=== PATIENT | female | born 1960 | race Caucasian/White ===

== ENCOUNTER 2022-05-15 06:59 | Outpatient (CLI) | payer OTHER, SELFPAY ==
--- NOTE | ~2022-05-15 | MM_ITS ---
EXAMINATION: MM screening linnea BI w manuel HISTORY: Screening mammogram TECHNIQUE: Craniocaudal and mediolateral oblique 3-D tomosynthesis images were obtained and synthetic 2-D images were generated. CAD analysis was submitted and interpreted. COMPARISON: No prior mammogram is available for comparison at this institution. BREAST PARENCHYMAL COMPOSITION: There are scattered areas of fibroglandular density. FINDINGS: RIGHT BREAST: No suspicious mass, calcification, or architectural distortion are identified to sugges t malignancy. LEFT BREAST: There is focal asymmetry in the upper outer quadrant of the left breast. IMPRESSION: 1. Focal asymmetry of the left breast which may represent the patient's baseline however no compariso n is currently available. 2. Comparison with prior mammograms is necessary. BI-RADS Category 0: Incomplete: Needs comparison with prior mammograms. Reviewed, dictated and finalized at location A. TUTOR IMPRESSION: 1. Focal asymmetry of the left breast which may represent the patient's baselin e however no comparison is currently available. 2. Comparison with prior mammograms is necessary. BI-RADS Category 0: Incomplete: Needs comparison with prior mammograms.
[2022-05-15 08:10] LABS: Alanine Aminotransferase 26 U/L (14-59); Aspartate Amino Transferase 15 U/L (15-37); Cholesterol 180 mg/dL (0-200); HDL Direct 45 mg/dL (40-60); LDL Cholesterol Calculated 111 mg/dL (<130); Triglycerides 121 mg/dL (0-150)
== END 2022-05-15 07:00 | disposition home or self-care (01) ==
LOC: CHSIMG 07:04
PROVIDERS: PCP Physician Assistant
DX: Z12.31 Encounter for screening mammogram for malignant neoplasm of breast (principal); Z79.899 Other long term (current) drug therapy; E78.2 Mixed hyperlipidemia
CPT/HCPCS: 36415; 77063; 77067; 80061; 84450; 84460

== ENCOUNTER 2022-12-05 12:56 | Outpatient (CLI) | payer OTHER, SELFPAY ==
[2022-12-05 13:15] LABS: Basophils Absolute Auto 0.03 K/mm3 (0.00-0.10); Basophils Percent Auto 0.5 % (0.0-1.0); Eosinophils Absolute Auto 0.09 K/mm3 (0.02-0.50); Eosinophils Percent Auto 1.6 % (1.0-6.0); Hematocrit 38.9 % (35.0-49.0); Hemoglobin 12.8 g/dL (12.0-15.0); Immature Granulocyte Absolute 0.02 K/mm3 (0.00-0.00); Immature Granulocyte Percent A 0.4 % (0.0-0.0); Lymphocytes Absolute Auto 2.19 K/mm3 (1.10-4.50); Lymphocytes Percent Auto 38.7 % (18.0-42.0); Mean Corpuscular HGB Conc 32.9 g/dL (32.0-36.0); Mean Corpuscular Hemoglobin 31.5 pg (27.0-31.0); Mean Corpuscular Volume 95.8 fL (78.0-102.0); Mean Platelet Volume 10.5 fl (9.2-11.8); Monocytes Absolute Auto 0.45 K/mm3 (0.10-0.90); Neutrophils Absolute Auto 2.9 K/mm3 (1.7-7.2); Neutrophils Percent Auto 50.8 % (50.0-70.0); Platelet Count Result 176 K/mm3 (150-420); Red Blood Count 4.06 M/mm3 (4.20-5.40); Red Cell Distribution Width 11.8 % (11.6-14.4); White Blood Count 5.7 K/mm3 (4.8-10.8)
[2022-12-05 13:28] LABS: Prothrombin Time 11.4 Seconds (9.50-12.10)
[2022-12-05 13:52] LABS: Anion Gap 2 mmol/L (8-16); Blood Urea Nitrogen 18 mg/dL (7-18); Calcium 9.7 mg/dL (8.5-10.1); Carbon Dioxide 35 mmol/L (21-32); Chloride 102 mmol/L (98-108); Estimated Glomerular Filt Rate > 60; Glucose 106 mg/dL (70-99); Magnesium 1.7 mg/dL (1.8-2.4); Osmolality Calculated 289 mOsm/kg (285-295); Potassium 3.8 mmol/L (3.5-5.1); Sodium 139 mmol/L (136-145)
== END 2022-12-05 12:57 | disposition home or self-care (01) ==
LOC: CHSLAB 13:00
PROVIDERS: PCP Physician Assistant; Visit Provider Specialist
DX: R07.89 Other chest pain (principal); R93.89 Abnormal findings on diagnostic imaging of other specified body structures; I10 Essential (primary) hypertension; E78.2 Mixed hyperlipidemia
CPT/HCPCS: 36415; 80048; 83735; 85025; 85610

== ENCOUNTER 2022-12-19 19:03 | Emergency (ER) | payer OTHER, SELFPAY ==
[2022-12-19 19:07] VITALS: BP 148/81; PULSE 83; RESP 14; TEMP 36.6; O2SAT 98
[2022-12-19 22:12] LABS: Basophils Percent Auto 0.4 % (0.2-1.2); Eosinophils Absolute Auto 0.1 K/mm3 (0-0.3); Eosinophils Percent Auto 2.1 % (0-4.4); Hematocrit 43.6 % (37.0-47.0); Hemoglobin 14.4 g/dL (12.0-15.0); Immature Granulocyte Absolute 0.02 K/mm3 (0.00-0.031); Immature Granulocyte Percent A 0.4 % (0-0.5); Lymphocytes Absolute Auto 2.46 K/mm3 (0.9-3.2); Mean Corpuscular Hemoglobin 31.3 pg (26-34); Mean Corpuscular Volume 94.8 fl (80-100); Mean Platelet Volume 10.6 fl (7.4-10.4); Monocytes Absolute Auto 0.4 K/mm3 (0.1-0.6); Monocytes Percent Auto 7.3 % (2.6-8.5); Neutrophils Absolute Auto 2.6 K/mm3 (1.3-6.7); Neutrophils Percent Auto 45.8 % (45.5-73.1); Platelet Count Result 196 k/mm3 (150-375); White Blood Count 5.6 K/mm3 (4.5-10.0)
--- NOTE | 2022-12-19 22:15 | ED.SKABFB ---
HPI - Skin/Abscess/Foreign Bdy General Chief complaint: Skin/Abscess/Foreign Body Stated complaint: bruising after cardiac cath Time Seen by Provider: 12/19/22 20:41 Source: patient Mode of arrival: ambulatory Limitations: no limitations History of Present Illness HPI narrative: This is a 62-year-old female that presents to the emergency department for right arm pain. Ongoing since yesterday. Reports a recent cardiac catheterization for which they accessed her in the right wrist. No recent injuries. Reports some bruising to the area. Denies fever, chest pain, shortness of breath, erythema, or edema. Related Data Allergies Allergy/AdvReac Type Severity Reaction Status Date / Time No Known Allergies Allergy Verified 12/19/22 19:04 Review of Systems Review of Systems: CONSTITUTIONAL: Denies fever CARDIOVASCULAR: Denies chest pain, or edema. RESPIRATORY: Denies dyspnea. NEUROLOGIC: Denies numbness All systems reviewed & are unremarkable except as noted in HPI and below PMFSH Past Medical History Medical History (Updated 12/19/22 @ 22:48 by Ellie Agustin PA-C) History of diabetes mellitus History of hypertension Social History Social History (Updated 12/19/22 @ 22:17 by Ellie Agustin PA-C) Substance use: never Exam Narrative: GENERAL: Well-appearing, well-nourished, and in no acute distress. HEAD: Normocephalic, atraumatic. EYES: EOMI. CHEST: No respiratory distress HEART: Regular rate EXTREMITIES: Normal range of motion. No edema or erythema. Mild bruising noted at the right wrist palmar aspect. Normal radial pulse. Normal sensation SKIN: Warm, dry, no rash. NEURO: No focal deficits. Alert and oriented x3. PSYCH: Normal mood and affect Course Course Emergency Course: Patient was updated on workup and agrees with plan of care Vital Signs Vital signs: Vital Signs Temperature 97.9 F 12/19/22 19:07 Pulse Rate 83 12/19/22 19:07 Respiratory Rate 14 12/19/22 19:07 Blood Pressure 148/81 H 12/19/22 19:07 Pulse Oximetry 98 12/19/22 19:07 Oxygen Delivery Room Air 12/19/22 19:07 Temperature 97.9 F 12/19/22 19:07 Pulse Rate 83 12/19/22 19:07 Respiratory Rate 14 12/19/22 19:07 Blood Pressure 148/81 H 12/19/22 19:07 Pulse Oximetry 98 12/19/22 19:07 Oxygen Delivery Room Air 12/19/22 19:07 MDM - Skin/Abscess/Foreign Bdy MDM Narrative Medical decision making narrative: Patient presents to the ER for right arm pain after recent cardiac catheterization. She is afebrile. She is neurovascularly intact. No erythema or edema of the arm noted. She denies any chest pain or shortness of breath. She has a small hematoma with some mild surrounding bruising. CBC metabolic panel without concerning findings. D-dimer is not elevated. Patient instructed to use warm compresses and anti-inflammatories. She is to follow up with her changer fixer. She was given warnings to return to the ER Differential Diagnosis Differential diagnosis: Likely cellulitis and other (hematoma, superficial thrombophlebitis, DVT) Lab Data Attestation: I reviewed the patient's lab results. 12/19/22 22:07 12/19/22 22:07 Labs: Lab Results 12/19/22 Range/Units 22:07 WBC 5.6 (4.5-10.0) K/mm3 RBC 4.60 (4.2-5.4) M/mm3 Hgb 14.4 (12.0-15.0) g/dL Hct 43.6 (37.0-47.0) % MCV 94.8 (80-100) fl MCH 31.3 (26-34) pg MCHC 33.0 (32-36) g/dl RDW 12.0 (11.5-14.5) % Plt Count 196 (150-375) k/mm3 MPV 10.6 H (7.4-10.4) fl Immature Gran % (Auto) 0.4 (0-0.5) % Neut % (Auto) 45.8 (45.5-73.1) % Lymph % (Auto) 44.0 (18.3-44.2) % [place] % (Auto) 7.3 (2.6-8.5) % Eos % (Auto) 2.1 (0-4.4) % Baso % (Auto) 0.4 (0.2-1.2) % Lymph # (Auto) 2.46 (0.9-3.2) K/mm3 [place] # (Auto) 0.4 (0.1-0.6) K/mm3 Eos # (Auto) 0.1 (0-0.3) K/mm3 Baso # (Auto) 0.0 (0.0-0.1) K/mm3 Abs Immat Gran (auto) 0.02 (0.00-0.031) K/mm3 Absolute Ne
[2022-12-19 22:23] LABS: Anion Gap 5 mmol/L (8-16); Blood Urea Nitrogen 17 mg/dL (7-17); Calcium 10.3 mg/dL (8.4-10.2); Carbon Dioxide 33 mmol/L (22-30); Chloride 98 mmol/L (98-107); Estimated CRCL calculation 71 ml/min; Estimated Glomerular Filt Rate > 60; Glucose 104 mg/dL (65-110); Potassium 3.4 mmol/L (3.4-5.0); Prothrombin Time 13.2 Seconds (11.1-14.7); Sodium 136 mmol/L (137-145)
[2022-12-19 22:24] LABS: Partial Thromboplastin Time 28.4 SECONDS (22.3-36.8)
[2022-12-19 22:30] LABS: D Dimer 0.41 ug/mL (<0.48)
[2022-12-19 23:21] VITALS: BP 144/87; PULSE 71; RESP 15; O2SAT 99
== END 2022-12-19 23:00 | disposition home or self-care (01) ==
PROVIDERS: Emergency Provider Physician Assistant; PCP Physician Assistant
DX: L76.32 Postprocedural hematoma of skin and subcutaneous tissue following other procedure (principal); E11.9 Type 2 diabetes mellitus without complications; I10 Essential (primary) hypertension; Y84.0 Cardiac catheterization as the cause of abnormal reaction of the patient, or of later complication, without mention of misadventure at the time of the procedure
CPT/HCPCS: 36415; 80048; 85025; 85380; 85610; 85730; 99283

== ENCOUNTER 2023-08-05 07:58 | Outpatient (CLI) | payer OTHER, SELFPAY ==
--- NOTE | ~2023-08-05 | MM_ITS ---
EXAMINATION: MM screening linnea BI w manuel HISTORY: Screening mammogram TECHNIQUE: Craniocaudal and mediolateral oblique 3-D tomosynthesis images were obtained and synthetic 2-D images were generated. CAD analysis was submitted and interpreted. COMPARISON: 05/15/2022, 01/02/2019 bilateral screening mammogram examinations BREAST PARENCHYMAL COMPOSITION: There are scattered areas of fibroglandular density. FINDINGS: Stable asymmetric increased density in the upper outer left breast since 01/02/2019. There is no evidence of suspicious mass, calcification, or architectural distortion to suggest malignancy in either breast. There has been no suspicious interval change. IMPRESSION: 1. Stable benign fibroglandular asymmetry. No mammographic evidence of malignancy. 2. Recommend routine screening mammography in one year. BI-RADS Category 2: Benign finding(s). Reviewed, dictated and finalized at location A. IMPRESSION: 1. Stable benign fibroglandular asymmetry. No mammographic evidence of malignan cy. 2. Recommend routine screening mammography in one year. BI-RADS Category 2: Benign finding(s).
== END 2023-08-05 07:59 | disposition home or self-care (01) ==
LOC: CHSIMG 08:00
PROVIDERS: PCP Physician Assistant; Visit Provider Physician Assistant
DX: Z12.31 Encounter for screening mammogram for malignant neoplasm of breast (principal)
CPT/HCPCS: 77063; 77067

== ENCOUNTER 2024-01-20 11:17 | Outpatient (CLI) | payer OTHER, SELFPAY ==
--- NOTE | ~2024-01-20 | XR_ITS ---
Cervical Spine: AP, lateral, open-mouth views Clinical History: Pain Findings: The normal lordotic curve is maintained. There is mild grade 1 anterolisthesis of C4 over C 5. There are mild to moderate degenerative disc changes at C4-C5 and C5 and C6. There is mild degener ative disc changes C6-C7. There are mild facet joint degenerative changes. Pre-vertebral soft tissues are unremarkable. Impression: Mild degenerative spondylosis, as above. Minimal grade 1 anterolisthesis of C4 over C5. Reviewed, dictated and finalized at location M. Impression: Mild degenerative spondylosis, as above. Minimal grade 1 anterolisthesis of C4 over C5.
--- NOTE | ~2024-01-20 | XR_ITS ---
Thoracic spine: Clinical Indication: Back pain AP and lateral views were performed. No fracture is seen. There is normal alignment of the vertebrae. There are mild degenerative disc ch anges in the thoracic spine. Paravertebral soft tissues appear normal. Impression: Mild degenerative disc changes. Reviewed, dictated and finalized at location . Impression: Mild degenerative disc changes.
--- NOTE | ~2024-01-20 | XR_ITS ---
Lumbosacral Spine: AP and lateral views Clinical History: Pain Findings: The normal lordotic curve is maintained. Bilateral L5 pars interarticularis defects are pre sent, with 15 mm anterolisthesis of L5 over S1. There is facet arthropathy at L5-S1 and moderate dege nerative disc narrowing at this level. The sacroiliac joints are normally outlined. Impression: Bilateral L5 pars interarticularis defects, with 15 mm anterolisthesis of L5 over S1. Reviewed, dictated and finalized at location M. Impression: Bilateral L5 pars interarticularis defects, with 15 mm anterolisthesis of L5 ov er S1.
== END 2024-01-20 11:18 | disposition home or self-care (01) ==
LOC: CHSIMG 11:19
PROVIDERS: PCP Physician Assistant; Visit Provider Physician Assistant
DX: M54.2 Cervicalgia (principal); M54.50 Low back pain, unspecified; M54.9 Dorsalgia, unspecified; M53.86 Other specified dorsopathies, lumbar region; M43.17 Spondylolisthesis, lumbosacral region; M43.12 Spondylolisthesis, cervical region
CPT/HCPCS: 72040; 72072; 72100

== ENCOUNTER 2024-02-10 12:30 | Outpatient (CLI) | payer OTHER, SELFPAY ==
--- NOTE | ~2024-02-10 | DEXA_ITS ---
Bone Density Report Name: ZAYRA PLASCENCIA Age: 63 Sex: Female Ethnicity: White Date of : 1960 Indication: postmenopausal; screening for osteoporosis; Referring Provider: ARIE, XIOMARA Study: Bone densitometry was performed. Exam Date: February 10, 2024 Accession number: [id number] Bone Density: Region BMD T-score Z-score Classification AP Spine(L1-L4) 0.861 -1.7 0.0 Osteopenia Femoral Neck (Left) 0.665 -1.7 -0.2 Osteopenia Total Hip (Left) 0.913 -0.2 1.0 Normal Femoral Neck (Right) 0.643 -1.9 -0.4 Osteopenia Total Hip (Right) 0.896 -0.4 0.8 Normal Femoral Neck Mean 0.654 -1.8 -0.3 Osteopenia Total Hip Mean 0.905 -0.3 0.9 Normal World Health Organization criteria for BMD impression classify patients as: Normal (T-score at or above -1.0), Osteopenia (T-score between -1.0 and -2.5), or Osteoporosis (T-score at or below -2.5). 10-year Fracture Risk: FRAX not reported because: Treated for osteoporosis Clinical Information Provided by Patient: Is being treated for osteoporosis Has used the following medications: Boniva (i.e. ibandronate), Vitamin D, multi Patient maximum height was 63 Menopause Age: 41 No regular weight bearing exercise Does not regularly consume dairy products Drinks caffeinated beverages Onset of menses at age 10 Number of children 1 Impression: The patient has low bone mass, based on the Right Femoral Neck T-score. Discussion: It is important to ask patients whether they are taking their medications and to encourage continued and appropriate compliance with their osteoporosis therapies to reduce fracture risk. It is also important to review their risk factors and encourage appropriate calcium and vitamin D intakes, exercise, fall prevention and other lifestyle measures. Follow-Up: Consider a repeat BMD and Vertebral Fracture Assessment (VFA) exam in 2 years or sooner if medically necessary, to reassess this patient's status. Reported by: HAFSA on 02/10/2024 12:50:00 PM. Reviewed, dictated and finalized at location ATeri RUST
== END 2024-02-10 12:31 | disposition home or self-care (01) ==
LOC: CHSIMG 12:31
PROVIDERS: PCP Physician Assistant; Visit Provider Physician Assistant
DX: Z78.0 Asymptomatic menopausal state (principal); M85.89 Other specified disorders of bone density and structure, multiple sites
CPT/HCPCS: 77080

== ENCOUNTER 2024-04-14 16:14 | Emergency (ER) | payer OTHER, SELFPAY ==
[2024-04-14] VITALS (11 sets, daily range): BP systolic 113–151; BP diastolic 62–88; PULSE 86–104; RESP 12–25; TEMP 36.7; O2SAT 98–100
--- NOTE | 2024-04-14 16:28 | ECG_ITS ---
Test Date: 2024-04-14 16:49:19 Measurements Intervals Christoval Rate: 90 P: 76 MO: 176 QRS: 67 QRSD: 86 T: 77 QT: 339 QTc: 417 Interpretive Statements SINUS RHYTHM No previous ECG available for comparison Electronically Signed On 04-15-2024 14:17:34 CASE MGR by Aryan Farr M.D.
--- NOTE | 2024-04-14 16:29 | ED.SYNCOPE ---
HPI - Syncope General Chief Complaint: Dizziness Stated Complaint: low blood pressure Time Seen by Provider: 04/14/24 16:16 History of Present Illness HPI narrative: Pt presents for evaluation after having several syncopal episodes over the last two weeks when she stands up or changes position rapidly. Pt was at her Land Conservation Specialist yesterday and her BP wass 80's /60's and dropped to 60's/40's when standing. Pt says they called her bottling line attendant who told her to drink fluids and follwo up in a couple of weeks. Pt has apparently had problems with her BP being low for awhile and has been weaning her BP meds. Pt is still on HCTZ a half pill now but others have stopped. Pt denies CP or SOB or any bleeding or melena. Pt says she has been drinking a lot of water at home. Pt wants to make sure everything is ok before she goes on trip to [place] this weekend. Related Data Allergies Allergy/AdvReac Type Severity Reaction Status Date / Time No Known Allergies Allergy Verified 04/14/24 16:23 Review of Systems Review of Systems: All systems reviewed & are unremarkable except as noted in HPI and below PMFSH Past Medical History Medical History (Updated 04/14/24 @ 18:10 by Soco Segovia III, DO) History of diabetes mellitus History of hypertension Social History Social History (Updated 12/19/22 @ 22:17 by Ellie Agustin PA-C) Substance use: never Exam Const: General: healthy appearing and no acute distress Nutritional Appearance: well nourished Orientation/consciousness: patient oriented x3 Limitations: no limitations HENMT: Head: normal to inspection Mouth: Yes Normal oral and palatal mucosa present Throat: posterior oropharynx normal Resp: Effort & Inspection: normal respiratory effort Auscultation: clear to auscultation bilaterally Cardio: Rate: regular rate Rhythm: regular rhythm GI: GI Palp: Yes Soft to palpation and No Tenderness to palpation present (GI) Auscultation: normal bowel sounds Skin: General skin exam: normal color Wounds: no wounds Neuro: General: patient oriented x3, moves all extremities, no focal motor deficits and CN's II-XI intact bilaterally Speech: normal speech Extrem: General: normal to inspection and no clubbing, cyanosis or edema Psych: Mental Status: mental status grossly normal Affect: normal affect Attitude: cooperative Course Vital Signs Vital signs: Vital Signs Pulse Rate 102 H 04/14/24 16:14 Respiratory Rate 20 04/14/24 16:14 Blood Pressure 151/81 H 04/14/24 16:14 Pulse Oximetry 99 04/14/24 16:14 Oxygen Delivery Room Air 04/14/24 16:14 Temperature 98.1 F 04/14/24 16:39 Pulse Rate 88 04/14/24 17:45 Respiratory Rate 14 04/14/24 17:45 Blood Pressure 147/88 H 04/14/24 17:45 Pulse Oximetry 100 04/14/24 17:45 Oxygen Delivery Room Air 04/14/24 16:14 MDM - Syncope MDM Narrative Medical decision making narrative: Pt presens with what sounds like orthostatic syncope. Could be dehydrated or anemic. will check orthostatics and labs and EKG and give IV fluids. orthostatics neg potassium a bit low will correct with po k here. No signs of dehydration on labs. Will give a bolus of fluids to be safe. Pt again clarified that she does not pass out when sitting only when she stands. She never has palpitations or CP prior or after events. Pt able to walk to BR without passing out. Pt says she feels a little fuzzy and wonders if it's inner ear and wantws ears checked which are normal. Pt comfortable with discharge. Lab Data 04/14/24 16:39 04/14/24 16:39 Labs: Lab Results 04/14/24 Range/Units 16:39 WBC 6.4 (4.8-10.8) K/mm3 RBC 4.11 L (4.20-5.40) M/mm3 Hgb 13.0 (12.0-15.0) g/dL Hct 36.8 (35.0-49.0) % MCV 89.5 (78.0-102.0) fL MCH 31.6 H (27.0-31.0) pg MCHC 35.3 (32-36) g/dL RDW 12.2 (11.6-14.4) % Plt Count 207 (150-420) K/mm3 MPV 10.0 (9.2-11.8) fl Immature Gran % (Auto) 0.2 H (0.0-0.0) % Neut % (Auto) 50.5 (50.0-70.0) % Lymph % (Auto) 37.9 (18.0-42.0) % [place] % (Auto) 8.9 (2.0-11.0) % Eos % (Auto) 1.9 (1.0-6.0) % Baso % (Auto) 0.6 (0.0-1.0) % Lymph # (Auto) 2.43 (1.10-4.50) K/mm3 [place] # (Auto) 0.57 (0.10-0.90) K/mm3 Eos # (Auto) 0.12 (0.02-0.50) K/mm3 Baso # (Auto) 0.04 (0.00-0.10) K/mm3 Abs Immat Gran (auto) 0.01 H (0.00-0.00) K/mm3 Absolute Neuts (auto) 3.24 (1.70-7.20) K/mm3 Absolute Nucleated RBC 0.00 (0.00-0.00) K/mm3 Nucleated RBC % 0.0 (0-0.0) % Sodium 137 (136-145) mmol/L Potassium 3.0 L (3.5-5.1) mmol/L Chloride 98 (98-108) mmol/L Carbon Dioxide 30 (21-32) mmol/L Anion Gap 9 (4-12) mmol/L BUN 10 (7-18) mg/dL Creatinine 0.99 (0.55-1.02) mg/dL Estim Creat Clear Calc 49 ml/min Estimated GFR 56 L (59 - ) Glucose 108 H (70-99) mg/dL Calculated Osmolality 284 L (285-295) mOsm/kg Calcium 10.2 H (8.5-10.1) mg/dL Magnesium 1.7 L (1.8-2.4) mg/dL Total Bilirubin 0.8 (0.00-1.00) mg/dL AST 16 (15-37) U/L ALT 24 (14-59) U/L Alkaline Phosphatase 76 (46-116) U/L Troponin I < 4.0 (0.00-60.4) ng/L Total Protein 7.5 (6.4-8.2) g/dL Albumin 4.2 (3.4-5.0) g/dL ECG Data EKG #1: Interpretation: nsr rate [address] or t wave changes. viewed independently by me. Discharge Plan Discharge Clinical Impression: Orthostatic hypotension, Syncope Patient Disposition: Home, Self-Care Condition: Improved Instructions: Antibiotic Form, Syncope (DC) Additional Instructions: drink plenty of fluids, rest, stop hctz, change positions slowly. return if concerns Patient Language: Nicaraguan Follow-up/Referrals: Radha,NENITA Connelly [Primary Care Provider] -
[2024-04-14 16:43] LABS: Basophils Absolute Auto 0.04 K/mm3 (0.00-0.10); Basophils Percent Auto 0.6 % (0.0-1.0); Eosinophils Absolute Auto 0.12 K/mm3 (0.02-0.50); Eosinophils Percent Auto 1.9 % (1.0-6.0); Hematocrit 36.8 % (35.0-49.0); Immature Granulocyte Absolute 0.01 K/mm3 (0.00-0.00); Immature Granulocyte Percent A 0.2 % (0.0-0.0); Lymphocytes Absolute Auto 2.43 K/mm3 (1.10-4.50); Lymphocytes Percent Auto 37.9 % (18.0-42.0); Mean Corpuscular HGB Conc 35.3 g/dL (32-36); Mean Corpuscular Hemoglobin 31.6 pg (27.0-31.0); Mean Corpuscular Volume 89.5 fL (78.0-102.0); Monocytes Absolute Auto 0.57 K/mm3 (0.10-0.90); Monocytes Percent Auto 8.9 % (2.0-11.0); Neutrophils Absolute Auto 3.24 K/mm3 (1.70-7.20); Neutrophils Percent Auto 50.5 % (50.0-70.0); Platelet Count Result 207 K/mm3 (150-420); Red Blood Count 4.11 M/mm3 (4.20-5.40); Red Cell Distribution Width 12.2 % (11.6-14.4); White Blood Count 6.4 K/mm3 (4.8-10.8)
[2024-04-14 16:52] LABS: Magnesium 1.7 mg/dL (1.8-2.4)
[2024-04-14 16:58] LABS: Alanine Aminotransferase 24 U/L (14-59); Albumin Level 4.2 g/dL (3.4-5.0); Alkaline Phosphatase 76 U/L (46-116); Anion Gap 9 mmol/L (4-12); Aspartate Amino Transferase 16 U/L (15-37); Bilirubin,Total 0.8 mg/dL (0.00-1.00); Blood Urea Nitrogen 10 mg/dL (7-18); Calcium 10.2 mg/dL (8.5-10.1); Carbon Dioxide 30 mmol/L (21-32); Chloride 98 mmol/L (98-108); Estimated CRCL calculation 49 ml/min; Estimated Glomerular Filt Rate 56; Glucose 108 mg/dL (70-99); Osmolality Calculated 284 mOsm/kg (285-295); Sodium 137 mmol/L (136-145); Total Protein 7.5 g/dL (6.4-8.2)
[2024-04-14 17:01] LABS: Troponin I < 4.0 ng/L (0.00-60.4)
[2024-04-14] MEDS: SODIUM CHLORIDE 0.9% IV 1,000 ML 999 ML IV CONT (17:12)
[2024-04-14] MEDS: POTASSIUM CHLORIDE 20 MEQ PACKET (FOR LIQUID) 40 MEQ PO (17:16)
--- NOTE | 2024-04-14 17:21 | PC.NURSE ---
WARM BLANKETS PROVIDED. PT HAS IVF INFUSING ORDERED WITHOUT DIFFICULTY. CALL LIGHT IN REACH. PT DENIES ANY OTHER NEEDS OR COMPLAINTS AT THIS TIME. NAD NOTED. WILL CONTINUE TO MONITOR.
--- NOTE | 2024-04-14 18:05 | PC.NURSE ---
PT AMBULATORY TO RR WITHOUT DIFFICULTY. REPORTS I AM STILL A LITTLE FUZZY IN THE HEAD, DEFINITELY NOT BAD. PT STATES I WANDER IF I HAVE AN INNER EAR INFECTION, CAN YOU GIVE ME SOME ANTIBIOTICS FOR THAT. ERP IS NOTIFIED. IVF HAVE COMPLETED INFUSION. WILL CONTINUE TO MONITOR.
== END 2024-04-14 18:15 | disposition home or self-care (01) ==
PROVIDERS: Emergency Provider Emergency Medicine; PCP Physician Assistant
DX: I95.1 Orthostatic hypotension (principal); E11.9 Type 2 diabetes mellitus without complications; I10 Essential (primary) hypertension
CPT/HCPCS: 36415; 80053; 83735; 84484; 85025; 93005; 96361; 96374; 99284; A9270; J7030

== ENCOUNTER 2024-08-20 07:28 | Outpatient (CLI) | payer MEDICARE, OTHER, SELFPAY ==
--- NOTE | ~2024-08-20 | MM_ITS ---
EXAMINATION: MM screening linnea BI w manuel HISTORY: Screening TECHNIQUE: Craniocaudal and mediolateral oblique 3-D tomosynthesis images were obtained and synthetic 2-D images were generated. CAD analysis was submitted and interpreted. COMPARISON: Comparison to multiple prior studies sequentially, with oldest reviewed study dated 05/15. BREAST PARENCHYMAL COMPOSITION: Not dense: There are scattered areas of fibroglandular density. FINDINGS: There is focal asymmetry superiorly in the left breast on MLO view with altered morphology compared with prior examination. The right breast is stable without evidence for malignancy. IMPRESSION: 1. Left breast asymmetry superiorly on MLO view. 2. Additional mammographic views and possible breast ultrasound are recommended. BI-RADS Category 0: Incomplete: Needs additional imaging evaluation. Reviewed, dictated and finalized at location A. IMPRESSION: 1. Left breast asymmetry superiorly on MLO view. 2. Additional mammographic views and possible breast ultrasound are recommended . BI-RADS Category 0: Incomplete: Needs additional imaging evaluation.
--- OUTSIDE RECORDS SUMMARY | 2024-08-20 07:36 | XMS_ITS | Encounter Summary ---
Author Organization [facility] Address [address] [place] [address] Care Team Providers Care Customer Care Agent Name Role Phone Dru Caruso MD Primary Care Provider [phone] Taryn Silveira MD Unavailable Martha Dejesus MD Unavailable Yannick Victor MD Unavailable [phone] Encounter Details Date Type Department Care Team (Late st Contact Info) Description 12/04/2022 Hospital Orders Only [facility] Benefits Manager Pre/Post [address] [place] [address] Samuel Dawson MD [address] [place] [address] Social History Tobacco Use Types Packs/Day Years Used Date Smoking Tobacco: Former Cigarettes Q uit: 2014 Smokeless Tobacco: Never Alcohol Use Standard Drinks/Week Comments Yes 0 (1 standard drink = 0.6 oz pur e alcohol) Social Comments Unknown Sex and Gender Information Value Date Recorded Sex Assigned at Not on file Legal Sex Female 7:24 PM CDT Gender Identity Not on file Sexual Orientation Not on file Occupation Industry Job Start Date Job End Date Not on file Not on file Not on file Not on file documented as of this encounter Plan of Treatment Not on file documented as of this encounter Visit Diagnoses Not on filedocumented in this encounter Care Teams Customer Care Agent Relationship Specialty Start Date End Date Dru Caruso MD [address] [place] [phone] PCP - General FAMILY PRACTICE 12/03/17 Taryn Silveira MD [address] [place] [phone] [place] Turret Lathe Operator CARDIOVASCULAR DISEASE 12/03/17 02/08/23 Martha Dejesus MD [address] [place] [address] Consulting Physician CARDIOVASCULAR DISEASE 08/22/23 Yannick Victor MD [address] [place] [address] Consulting Physician INTERVENTIONAL CARDIOLOGY 12/05/23 documented as of this encounter
--- OUTSIDE RECORDS SUMMARY | 2024-08-20 07:36 | XMS_ITS | Encounter Summary ---
Author Organization [facility] Address [address] [place] [address] Phone Care Team Providers Care Therapy Coordinator Name Role Phone Godwin Garcia Primary Care Provider Encounter Details Date Type Department Care Team (Late st Contact Info) Description 07/14/2024 Results Follow-Up [facility] Cardiology [address] [facility] Advanced Medicine 8th [place] [address] [place] [address] Mikael Lubin MD [address] [facility] [address] [place], [place] [id number] Social History Tobacco Use Types Packs/Day Years Used Date Smoking Tobacco: Every Day Cigarettes Personal Safety Answer Date Recorded Have you ever been in or are you currently in a harmful physical or emotional relationship or is someone making you feel afraid or unsafe? 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
--- OUTSIDE RECORDS SUMMARY | 2024-08-20 07:36 | XMS_ITS | Encounter Summary ---
Author Organization [facility] Address [address] [place] [address] Phone Care Team Providers Care Last Picker Name Role Phone Godwin Garcia Primary Care Provider Encounter Details Date Type Department Care Team (Late st Contact Info) Description 07/01/2024 Results Follow-Up [facility] Cardiology [address] [facility] Advanced Medicine 8th [place] [address] [place] [address] Mikael Lubin MD [address] [facility] [address] [place] [address] Social History Tobacco Use Types Packs/Day Years Used Date Smoking Tobacco: Every Day Cigarettes Comments Unknown Sex and Gender Information Value Date Recorded Sex Assigned at Not on file 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
--- OUTSIDE RECORDS SUMMARY | 2024-08-20 07:36 | XMS_ITS | Encounter Summary ---
Author Organization [facility] Address [facility] [place] [address] Care Team Providers Care Timber Incisor Operator Name Role Phone Dru Caruso MD Primary Care Provider Taryn Silveira MD Unavailable Martha Dejesus MD Unavailable Yannick Victor MD Unavailable [phone] Encounter Details Date Type Department Care Team (Late st Contact Info) Description 11/21/2022 [employer] [facility] Message [facility] [place], [place] [address] Taryn Silveira MD [address] [place], [place] [phone] Test results Social History Tobacco Use Types Packs/Day Years [...] on filedocumented in this encounter Care Teams Timber Incisor Operator Relationship Specialty Start Date End Date Dru Caruso MD [address] [place] [phone] PCP - General FAMILY PRACTICE 12/03/17 Taryn Silveira MD [address] [place] [phone] [place] Data Analytics Architect CARDIOVASCULAR DISEASE 12/03/17 02/08/23 Martha Dejesus MD [address] [place] [address] Consulting Physician CARDIOVASCULAR DISEASE 08/22/23 Yannick Victor MD [address] [place] [address] Consulting Physician INTERVENTIONAL CARDIOLOGY 12/05/23 documented as of this encounter
--- OUTSIDE RECORDS SUMMARY | 2024-08-20 07:36 | XMS_ITS | Encounter Summary ---
Author Organization [facility] Address [address] [place] [address] Care Team Providers Care Louver Mortiser Operator Name Role Phone Dru Caruso MD Primary Care Provider Taryn Silveira MD Unavailable Martha Dejesus MD Unavailable Yannick Victor MD Unavailable [phone] Encounter Details Date Type Department Care Team (Latest Contact Info) Description 11/25/2022 If You Can Message [facility] [address] [place] [phone] Nita Peter MD Cardiac Catheterization Social History Tobacco Use Types Packs/Day Years [...] on filedocumented in this encounter Care Teams Louver Mortiser Operator Relationship Specialty Start Date End Date Dru Caruso MD [address] [place] [phone] PCP - General FAMILY PRACTICE 12/03/17 Taryn Silveira MD [address] [place] [phone] [place] Vamp Stitcher CARDIOVASCULAR DISEASE 12/03/17 02/08/23 Martha Dejesus MD [address] [place] [address] Consulting Physician CARDIOVASCULAR DISEASE 08/22/23 Yannick Victor MD [address] [place] [address] Consulting Physician INTERVENTIONAL CARDIOLOGY 12/05/23 documented as of this encounter
--- OUTSIDE RECORDS SUMMARY | 2024-08-20 07:36 | XMS_ITS | Encounter Summary ---
Author Organization [facility] Address [facility] [place] [address] Care Team Providers Care Ripsaw Matcher Name Role Phone Dru Caruso MD Primary Care Provider [phone] Taryn Silveira MD Unavailable Martha Dejesus MD Unavailable Yannick Victor MD Unavailable [phone] Encounter Details Date Type Department Care Team (Late st Contact Info) Description 05/02/2021 Abstract [facility] [place] [address] [place] [address] Abstract, Doc [facility] Social History Tobacco Use Types Packs/Day Years [...] on file documented as of this encounter Procedures Procedure Name Priority Date/Time Associated Diagnosis Comments AST/SGOT Routine 04/27/2021 Encounter for long-term current use of medication LIPID PANEL Routine 04/27/2021 Mixed hyperlipidemia ALT/SGPT Routine 04/27/2021 Encounter for long-term current use of medication documented in this encounter Results * ALT/SGPT (04/27/2021) ALT 20 04/27/2021 us Taryn Silveira MD LABORATORY Final Result * AST/SGOT (04/27/2021) AST 17 04/27/2021 us Taryn Silveira MD LABORATORY Final Result * LIPID PANEL (04/27/2021) CHOLESTEROL 280 HDL 51 TRIGLYCERIDES 221 CHOL/HDL RATIO 5 LDL (CALCULATED) 181.3 04/27/2021 us Taryn Silveira MD LABORATORY Final Result documented in this encounter Visit Diagnoses Diagnosis Mixed hyperlipidemia Encounter for long-term current use of medication documented in this encounter Care Teams Ripsaw Matcher Relationship Specialty Start Date End Date Dru Caruso MD [address] [place] [phone] PCP - General FAMILY PRACTICE 12/03/17 aTryn Silveira MD [address] [place] [phone] [place] Supervisor Finishing Department CARDIOVASCULAR DISEASE 12/03/17 02/08/23 Martha Dejesus MD [address] [place] [address] Consulting Physician CARDIOVASCULAR DISEASE 08/22/23 Yannick Victor MD [address] [place] [address] Consulting Physician INTERVENTIONAL CARDIOLOGY 12/05/23 documented as of this encounter
--- OUTSIDE RECORDS SUMMARY | 2024-08-20 07:37 | XMS_ITS | Encounter Summary ---
Author Organization [facility] Address [address] [place] [address] Care Team Providers Care Dealer Development Manager Name Role Phone Dru Caruso MD Primary Care Provider [phone] Taryn Silveira MD Unavailable Martha Dejesus MD Unavailable Yannick Victor MD Unavailable [phone] Encounter Details Date Type Department Care Team (Late st Contact Info) Description 12/21/2022 Abstract [facility] [address] [place] [phone] Samuel Dawson MD [address] [place] [phone] Social History Tobacco Use Types Packs/Day Years Used Date Smoking Tobacco: Former Cigarettes Q uit: 2014 Smokeless Tobacco: Never Tobacco Cessation:Counseling Given: Not Answered Alcohol Use Standard Drinks/Week Comments Yes 0 [...] on filedocumented in this encounter Care Teams Dealer Development Manager Relationship Specialty Start Date End Date Dru Caruso MD [address] [place] [phone] PCP - General FAMILY PRACTICE 12/03/17 Taryn Silveira MD [address] [place] [phone] [place] Finisher Plate CARDIOVASCULAR DISEASE 12/03/17 02/08/23 Martha Dejesus MD [address] [place] [address] Consulting Physician CARDIOVASCULAR DISEASE 08/22/23 Yannick Victor MD [address] [place] [address] Consulting Physician INTERVENTIONAL CARDIOLOGY 12/05/23 documented as of this encounter
--- OUTSIDE RECORDS SUMMARY | 2024-08-20 07:37 | XMS_ITS | Clinical Summary ---
Author Organization [facility] Address [facility] [place] [address] Care Team Providers Care Employment Representative Name Role Phone Dru Caruso MD Primary Care Provider Yannick Victor MD Unavailable [phone] Allergies Active Allergy Reactions Criticality Noted Date Comments Hydrocodone Unknown 10/07/2015 Family HX of Drug addiction. NO HX with pt, pt Does not want to take d/t strong family HX Medications omeprazole 20 MG capsule Take 1 capsule (20 mg total) by mouth daily. 03/13/2013 Active vitamin D3, cholecalciferol , 10 mcg tablet Take 1 tablet (400 Units total) by mouth daily. Active vitamin E 400 UNIT capsule Take 1 capsule (400 Units total) by mouth daily. Active aspirin EC 81 MG EC tablet Take 1 tablet (81 mg total) by mouth daily. Active nitroglycerin 0.[address] 1 tablet (0.4 mg total) under the tongue every 5 (five) minutes as needed for Chest Pain. Maximum of 3 doses. 25 tablet 01/21/2020 Active LORazepam 1 MG tablet Take 0.5 tablets (0.5 mg total) by mouth every 6 (six) hours as needed. 09/28/2019 Active traZODone 100 MG tablet Take 1.5 tablets (150 mg total) by mouth nightly at bedtime. at bedtime. 11/03/2019 Active metFORMIN ER (GLUCOPHAGE-XR) 500 MG 24 hr tablet Take 1 tablet (500 mg total) by mouth every evening. 09/14/2022 Active atomoxetine (STRATTERA) 80 MG capsule Take 1 capsule (80 mg total) by mouth daily. 11/17/2022 Active OZEMPIC, 0.25 OR 0.5 MG/DOSE, 2 MG/3ML injection (PEN) Inject 0.25 mg into the skin every 7 days. 01/27/2024 Active buPROPion XL (WELLBUTRIN XL) 300 MG 24 hr tablet Take 1 tablet (300 mg total) by mouth daily. 11/22/2023 Active evolocumab (REPATHA SURECLICK) 140 MG/ML injection (PEN) Inject 1 mL (140 mg total) into the skin every 14 (fourteen) days. 2 pen. 11 03/06/2024 Active Active Problems Problem Noted Date Diagnosed Date Mild CAD 01/11/2023 Encounter for long-term current use of medicatio n 03/31/2018 Essential (primary) hypertension 12/17/2017 Other chest pain 12/17/2017 Mixed hyperlipidemia 12/17/2017 Sleep apnea Overview (01/11/2023): wears cpap Encounters Date Type Department Care Team Description 06/01/2024 7:51 AM INTERFACE ANALYST - 06/01/2024 11:59 PM INTERFACE ANALYST Hospital Encounter [facility] [address] [place] [address] Godwin Sargent, PA Discharge Disposition: Home or Self Care (Routine Discharge) 06/01/2024 Travel from Last 3 Months Family History Medical History Relation Comments Heart Attack Brother 1 Stent Cardiac Brother 1 Heart Attack Father Open Heart Father Heart Attack Mother Open Heart Mother Stroke Mother Open Heart Sister 1 Relation Status Comments Brother 1 Alive CAD, GA and CABG Brother 2 Alive Brother 3 Alive Brother 4 Father CAD, GA Mother CAD, GA Sister 1 Alive CAD, GA and CABG Sister 2 Alive Sister 3 Alive Sister 4 Alive Sister 5 Alive Social History Tobacco Use Types Packs/Day Years [...] file Not on file Not on file Last Filed Vital Signs Vital Sign Reading Time Taken Comments Blood Pressure 132/68 01/31/2024 9:43 AM CDT Pulse 97 01/31/2024 9:43 AM CDT Temperature 36.2 C (97.2 F) 12/10/2022 11:55 AM CDT Respiratory Rate 16 01/31/2024 9:43 AM CDT Oxygen Saturation 97% 01/31/2024 9:43 AM CDT Inhaled Oxygen Concentration - - Weight 83.6 kg (184 lb 3.2 oz) 01/31/2024 9:43 A M CDT Height 160 cm (5' 3 ) 01/31/2024 9:43 AM CDT Body Mass Index 32.63 01/31/2024 9:43 AM CDT Plan of Treatment Health Maintenance Due Date Last Done Comments ASCVD Statin 1959 Colorectal Cancer Screening Colonoscopy (10 Years) 1959 Hepatitis C 1977 Pneumococcal Vaccine: 50+ Years (1 of 2 - PCV) 1978 Mammogram Screening 1999 Zoster Vaccines (1 of 2) 2009 RSV Immunization or 60+ Years (1 - Risk 60-74 years 1-dose series) 2019 ASCVD LDL 10/06/2023 10/05/2022, 04/29, 09/23/2021, Additional history exists COVID-19 Vaccine ( - season) 2023 05/19/2020, 04/20/2020 Dexa Scan (General) 2024 DTaP, Tdap and Td Vaccines (2 - Td or Tdap) 09/13/2033 09/14/2023 Meningococcal B Vaccine Aged Out No l onger eligible based on patient's age to complete this topic Meningococcal Vaccine Aged Out No sherman korey eligible based on patient's age to complete this topic RSV Immunizations Under 20 Months Aged Out No longer eligible based on patient's age to complete this topic Procedures Procedure Name Priority Date/Time Associated Diagnosis Comments CT HEAD WO CON Routine 06/01/2024 8:03 AM INTERFACE ANALYST Headache LIPID PANEL Routine 10/05/2022 12:17 PM CDT Mixed hyperlipidemia from Last 3 Months or Most Recently Relevant to Health Maintenance Results * CT HEAD WO CON (06/01/2024 8:03 AM INTERFACE ANALYST) Anatomical Region Laterality Modality Head Computed Tomogra phy 06/01/2024 8:30 AM INTERFACE ANALYST Impressions 06/01/2024 8:34 AM INTERFACE ANALYST IMPRESSION: 1. No acute intracranial process identified. 2. Minimal left maxillary sinusitis. Ordered By: GODWIN SARGENT Interpreted By: Mukund Alba MD, 06/01/2024 8:30 AM Narrative 06/01/2024 8:34 AM INTERFACE ANALYST [address] [place] [address] Examination: CT of the head without contrast. Exam time: 0802 hours. Clinical history: Dizziness. Syncope. Comparison: None. Technique: Noncontrast axial scans from skull base to vertex. Sagittal and coronal reconstructions were performed from the data set. A dose lowering technique was used for this procedure, which may include, but is not limited to, dose reduction techniques, automated exposure control, the use of iterative reconstruction and ALARA/Image Gently techniques. Findings: The ventricles are normal in size and configuration. No shift of midline or mass effect is noted. Intracranially, no areas of abnormal x-ray attenuation are identified. In particular, there is no mass, hemorrhage or sign of acute stroke. No extracerebral fluid collections. There is minor mucosal thickening in the left maxillary sinus. The mastoid air cells and visualized paranasal sinuses are otherwise clear. Procedure Note Mukund Alba MD - 06/01/[address] [place] [address] Examination: CT of the head without contrast. Exam time: 0802 hours. Clinical history: Dizziness. Syncope. Comparison: None. Technique: Noncontrast axial scans from skull base to vertex. Sagittal andcoronal reconstructions were performed from the data set. A dose loweringtechnique was used for this procedure, which may include, but is notlimited to, dose reduction techniques, automated exposure control, the useof iterative reconstruction and ALARA/Image Gently techniques. Findings: The ventricles are normal in size and configuration. No shift ofmidline or mass effect is noted. Intracranially, no areas of abnormalx-ray attenuation are identified. In particular, there is no mass,hemorrhage or sign of acute stroke. No extracerebral fluid collections.There is minor mucosal thickening in the left maxillary sinus. The mastoidair cells and visualized paranasal sinuses are otherwise clear. IMPRESSION: 1. No acute intracranial process identified. 2. Minimal left maxillary sinusitis. Ordered By: GODWIN SARGENT Interpreted By: Mukund Alba MD, 06/01/2024 8:30 AM Godwin Sargent PA CT Final Result * LIPID PANEL (10/05/2022 12:17 PM CDT) CHOLESTEROL 200 [facility] HDL 40 [facility] TRIGLYCERIDES 204 [facility] NON HDL CHOLESTEROL 160 [facility] CHOL/HDL RATIO 5.0 [facility] LDL (CALCULATED) 119 [facility] VLDL CALCULATION 0 [facility] 10/05/2022 12:1 7 PM CDT Taryn Silveira MD LABORATORY Final Result [facility] from Last 3 Months or Most Recently Relevant to Health Maintenance Insurance [employer] [facility] MEDICARE Advance Directives Documents on File Type Date Recorded Patient Copy Clerk Expl anation Advance Directives and Living Will 02/25/2018 3:17 PM TUSHAR MONTELONGO, AGENT; JIA ATKINSON, SUCCESSOR AGENT Advance Directives and Living Will 02/25/2018 3:17 PM [place] [facility] [place] * Full Code (Latest Code Status on File) Date Activated Date Inactivated Comments 12/10/2022 5:04 PM 12/10/2022 8:15 PM * Full Code Date Activated Date Inactivated Comments 01/10/2018 9:08 AM 01/10/2018 1:20 PM Care Teams Employment Representative Relationship Specialty Start Date End Date Dru Caruso MD [address] [place] [phone] PCP - General FAMILY PRACTICE 12/03/17 Yannick Victor MD [address] [place] [phone] Consulting Physician INTERVENTIONAL CARDIOLOGY 12/05/23
--- OUTSIDE RECORDS SUMMARY | 2024-08-20 07:37 | XMS_ITS ---
Author Organization Unknown Address [address] [place] [phone] Phone Care Team Providers Care Lumber Loader Name Role Phone MATT Marshall Attending Unavailable LIAT GONSALEZ CRNA Unavailable MATY Mckoy Primary Unavailable Immunization Immunization Date Status Additional Notes Code Code System Hep B, unspecified formulation 11/10/2015 Completed 45 CVX Hep B, unspecified formulation 01/10/2016 Completed 45 CVX Hep B, unspecified formulation 05/11/2016 Completed 45 CVX influenza, unspecified formulation 02/21/2016 Completed 88 CVX influenza, unspecified formulation 01/23/2017 Completed 88 CVX Tdap 09/14/2023 Completed 115 CVX Influenza, split virus, trivalent, preservative 02/11/2018 Completed 141 CVX Influenza, split virus, quadrivalent, PF 03/16/2022 Completed 150 CVX Influenza, MDCK, quadrivalen t, PF 02/02/2023 Completed 171 CVX COVID-19, mRNA, LNP-S, PF, 1 00 mcg/0.5mL dose or 50 mcg/0.25mL dose 04/20/2020 Completed 207 CVX COVID-19, mRNA, LNP-S, PF, 1 00 mcg/0.5mL dose or 50 mcg/0.25mL dose 05/19/2020 Completed 207 CVX COVID-19, mRNA, LNP-S, bivalent, PF, 30 mcg/0.3 mL dose 03/17/2022 Completed 300 CVX COVID-19, mRNA, LNP-S, PF, jessy-sucrose, 30 mcg/0.3 mL 02/02/2023 Completed 309 CVX Social History Type Status Start Date End Date Code Code Syst em Sex Female Vital Signs Vital Sign Value Unit [place] Value [place] Date/Time Recent/Initial? Code Code System Body Mass Index 26.09 kg/m2 07/16/2024 10:18 Most Recent 60842 -5 LOINC Body Mass Index 26.61 kg/m2 07/10/2024 12:39 Initial 57544 -5 LOINC Systolic Blood Pressure 130 mm[Hg] 07/16/2024 10:12 Initial 8480- 6 LOINC Diastolic Blood Pressure 61 mm[Hg] 07/16/2024 10:12 Initial 8462- 4 LOINC Body Surface Area 1.76 m2 07/16/2024 10:18 Most Recent 3140- 1 INC Body Surface Area 1.78 m2 07/10/2024 12:39 Initial 3140- 1 LOINC Height 162.560 0 cm 64.00 in 07/16/2024 10:18 Most Recent 8302- 2 LOINC Height 162.560 0 cm 64.00 in 07/10/2024 12:39 Initial 8302- 2 INC O2 Saturation 100 % 2024 10:12 Initial 24043 -5 INC Pulse 84.0 /min 07/16/2024 10:12 Initial 8867- 4 INC Respiration 16 /min 07/17/19 10:12 Initial 9279- 1 INC Temperature 36.3 Lizzy 97.3 F 07/17/19 10:12 Initial 8310- 5 LOINC Weight 68.95 kg 152.00 lbs 07/16/2024 10:18 Most Recent 80467 -7 INC Weight 70.31 kg 155.00 lbs 07/10/2024 12:39 Initial 00549 -7 [facility] Medications Medication Start Date End Date Route Frequency Dose Code Code System Medication Instructions Home Meds Aspirin 81MG Oral Tablet, Enteric Coated 07/16/2024 Unknown ORAL ONCE A DAY 81 MILLIGRAMS 942739 RxNorm TAKE 81 MILLIGRAMS ORAL ONCE A DAY Ativan 1MG Oral Tablet 07/16/2024 Unknown ORAL NEEDED 0.5 MILLIGRAMS 402397 RxNorm TAKE 0.5 MILLIGRAMS ORAL NEEDED Boniva 150MG Oral Tablet 07/16/2024 Unknown ORAL MONTHLY 150 MILLIGRAMS 808883 RxNorm TAKE 150 MILLIGRAMS ORAL MONTHLY Meloxicam 15MG Oral Tablet 07/16/2024 Unknown ORAL NEEDED DAILY 15 MILLIGRAMS 915940 RxNorm TAKE 15 MILLIGRAMS ORAL NEEDED DAILY Omeprazole 20 MG Oral Tablet, Delayed Release 07/16/2024 Unknown ORAL ONCE A DAY 20 MG RxNorm TAKE 20 MG ORAL ONCE A DAY Ondansetron 4MG Oral Tablet, Disintegrating 07/16/2024 Unknown ORAL NEEDED 3 TIMES A DAY 4 MILLIGRAMS 472288 RxNorm TAKE 4 MILLIGRAMS ORAL NEEDED 3 TIMES A DAY Strattera 80MG Oral Capsule 07/16/2024 Unknown ORAL ONCE A DAY 80 MILLIGRAMS 693871 RxNorm TAKE 80 MILLIGRAMS ORAL ONCE A DAY buPROPion HCl 300MG Oral Tablet, Extended Release, 24 HR 07/16/2024 Unknown ORAL ONCE A DAY 300 MILLIGRAMS 158427 RxNorm TAKE 300 MILLIGRAMS ORAL ONCE A DAY traZODone hydrochloride 100MG Oral Tablet 07/16/2024 Unknown ORAL AT BEDTIME 100 MILLIGRAMS 814363 RxNorm TAKE 100 MILLIGRAMS ORAL AT BEDTIME Hospital Discharge Instructions Should you have any questions prior to discharge, please contact a member of your healthcare team. If you have left the hospital and have any questions, please contact your primary care physician. Reason For Referral No Data Found Procedures Procedure Name Date Status Code Code Syste m Colorectal cancer screening; colonoscopy on individual not meeting criteri 07/16/2024 completed G0121 C PT Anesthesia for lower intesti nal endoscopic procedures, endoscope introduce 07/16/2024 completed 74648 CPT Oophorectomy completed 24092065 SNOMEDCT Surgery on facial bone completed [id number] SN OMEDCT Allergies and Adverse Reactions Allergy Substance Reaction Severity Start Date Concern Status Co de Code System CODEINE Active 2670 RxNorm HYDROCODONE Active 5489 RxNorm No Known Allergies Active [id number] SNO MED-CT Plan of Treatment Bone Density Dexa 02/14/2024 Colonoscopy 07/16/2024 Encounters Encounter Diagnosis Start Date Code Code Sys tem Encounter for screening for malignant neoplasm of colo n 07/16/2024 SNOMED-CT Personal Care Team Section Performer Name Performer Role Active Date Inactive BAO Cardoso PCP - Primary care physician 2024-07-16
--- OUTSIDE RECORDS SUMMARY | 2024-08-20 07:37 | XMS_ITS | Clinical Summary ---
Author Organization [facility] [place] [address] Address [address] [place] [id number] Care Team Providers Care Bilingual Medical Assistant Name Role Phone Godwin Garcia Primary Care Provider Allergies Active Allergy Reactions Criticality Noted Date Comments Hydrocodone Unknown 10/07/2015 Family HX of Drug addiction. NO HX with pt, pt Does not want to take d/t strong family HX Medications aspirin 81 mg enteric coated tablet Take 1 tablet (81 mg total) by mouth daily Active atomoxetine (STRATTERA) 40 mg capsule Take 1 capsule (40 mg total) by mouth 2 (two) times a day 09/13/2021 Active atomoxetine (STRATTERA) 80 mg capsule 11/17/2022 Active buPROPion XL (WELLBUTRIN XL) 150 mg 24 hr tablet Take 2 tablets (300 mg total) by mouth daily 11/04/2019 Active cholecalciferol 400 unit capsule Take 1 tablet/capsu le (400 Units total) by mouth daily Active Repatha SureClick 140 mg/mL pen injector Inject 1 mL (140 mg total) under the skin every 2 (two) weeks 11/13/2022 Active LORazepam (ATIVAN) 1 mg tablet Take 0.5 tablets (0.5 mg total) by mouth every 6 (six) hours as needed 09/28/2019 Active nitroglycerin (NITROSTAT) 0.[address] 1 tablet (0.4 mg total) under the tongue every 5 (five) minutes as needed 01/21/2020 Active omeprazole (PriLOSEC) 20 mg capsule Take 1 capsule (20 mg total) by mouth daily 03/13/2013 Active traZODone (DESYREL) 100 mg tablet Take 1 tablet (100 mg total) by mouth daily 11/03/2019 Active fludrocortisone 0.1 mg tablet Take 1 tablet (0.1 mg total) by mouth daily Active Active Problems Problem Noted Date Diagnosed Date Essential (primary) hypertension 12/17/2017 Mixed hyperlipidemia 12/17/2017 Other chest pain 12/17/2017 Encounters Date Type Department Care Team Description 08/10/2024 10:00 AM CDT Procedure visit [facility] Neurological Testing [facility] 6th [place] [address] [place] [address] SOB (shortness of breath); Coronary artery calcification; Orthostatic hypotension; Dyslipidemia 07/14/2024 Results Follow-Up [facility] Cardiology [address] [place] [address] 8th [place] [address] [place] [address] Nneka Marin MD 07/13/2024 1:34 PM CDT - 07/13/2024 11:59 PM CDT Hospital Encounter [facility] Cardiac Diagnostic Lab [address] [place] [address] SOB (shortness of breath); Hypotension, unspecified hypotension type; Coronary artery disease involving [place] coronary artery of [place] heart, unspecified whether angina present; Orthostatic syncope; Dyslipidemia Discharge Disposition: Discharge to home or self care 07/10/2024 Telephone [facility] Cardiology [address] [place] [address] 8th [place] [address] [place] [address] Nneka Marin MD 07/01/2024 12:10 PM SENIOR PRIVATE CLIENT ADVISOR Lab [facility] [address] [place] [phone] SOB (shortness of breath); Coronary artery disease involving [place] coronary artery of [place] heart, unspecified whether angina present; Dyslipidemia; Family history of premature CAD; Hypotension, unspecified hypotension type; Orthostatic syncope 07/01/2024 9:00 AM SENIOR PRIVATE CLIENT ADVISOR Office Visit [facility] Cardiology [address] [place] [address] 8th [place] [address] [place] [address] Nneka Marin MD Orthostatic hypotension (Primary Dx); SOB (shortness of breath); Coronary artery calcification; Dyslipidemia; Family history of premature CAD 07/01/2024 Orders Only [facility] Cardiology [address] [place] [address] 8th [place] [address] [place] [address] Nneka Marin MD Orthostatic syncope (Primary Dx) 07/01/2024 Results Follow-Up [address] 8th [place] [address] [place] [address] Nneka Marin MD 07/01/2024 Orders Only [facility] Cardiology [address] [place] [address] 8th [place] [address] [place] [address] Nneka Marin MD from Last 3 Months Immunizations Immunization Administration Dates Next Due Hep B, Unspecified 05/11/2016,01/10/2016, 016 Influenza, Quadrivalent, Spl it, Preservative Free, Intramuscular 03/16/2022 Influenza, Trivalent, IM (MDV) 02/11/2018 Influenza, Unspecified 01/23/2017,02/21/2016 Tdap 09/14/2023 Social History Tobacco Use Types Packs/Day Years Used Date Smoking Tobacco: Every Day Cigarettes Tobacco Cessation:Ready to Q uit: Not Asked; Counseling Given: Not Answered Personal Safety Answer Date Recorded Have you ever been in or are you currently in a harmful physical or emotional relationship or is someone making you feel afraid or unsafe? Denies 07/13/2024 Comments Unknown Sex and Gender Information Value Date Recorded Sex Assigned at Not on file Legal Sex Female 12:39 PM SENIOR PRIVATE CLIENT ADVISOR Gender Identity Not on file Sexual Orientation Not on file Obstetrics History Last Filed Vital Signs Vital Sign Reading Time Taken Comments Blood Pressure 120/75 07/13/2024 3:09 PM CDT Pulse 103 07/13/2024 3:09 PM CDT Temperature 37.1 C (98.8 F) 09/14/2023 10:15 AM CDT Respiratory Rate 16 09/14/2023 10:15 AM CDT Oxygen Saturation 100% 07/01/2024 9:05 AM SENIOR PRIVATE CLIENT ADVISOR Inhaled Oxygen Concentration - - Weight 70.3 kg (155 lb) 07/13/2024 2:19 PM CDT Height 160 cm (5' 3 ) 07/13/2024 2:19 PM CDT Body Mass Index 27.46 07/13/2024 2:19 PM CDT Plan of Treatment Health Maintenance Due Date Last Done Comments Breast Cancer Screening-Mammogram 1960 Colon Cancer Screening-Colonoscopy 1960 Depression Screening 1960 Fall Risk Assessment 1960 Hepatitis C Screening 1960 Osteoporosis Screening-Bone Density Scan 1960 Pneumococcal vaccine 65+ (1 of 2 - PCV) 1978 Zoster Vaccine (1 of 2) 2009 Cervical Cancer Screening 06/07/2022 06/07/2021 Covid-19 Vaccine (4 - 2023-2 5 season) 2023 03/17/2022, 05/19/2020, 04/20/2020 Well Visit 65+ 2024 Influenza Vaccine (Season Ended) 2024 02/02/2023, 03/16/2022, 02/11/2018, Additional history exists DTaP/Tdap/Td Vaccine (2 - Td or Tdap) 09/13/2033 09/14/2023 Hepatitis B Screening Completed 05/11/2016 , 01/10/2016, 11/10/2015 Procedures Procedure Name Priority Date/Time Associated Diagnosis Comments STRESS ECHO PHARMACOLOGIC W DOPPLER/CF W CONTRAST Routine 07/13/2024 3:09 PM CDT SOB (shortness of breath) Hypotension, unspecified hypotension type Coronary artery disease involving [place] coronary artery of [place] heart, unspecified whether angina present Orthostatic syncope Dyslipidemia EGFR Routine 07/01/2024 12:21 PM SENIOR PRIVATE CLIENT ADVISOR SOB (shortness of breath) Hypotension, unspecified hypotension type Coronary artery disease involving [place] coronary artery of [place] heart, unspecified whether angina present Orthostatic syncope Dyslipidemia MANUAL DIFFERENTIAL Routine 07/01/2024 1 2:21 PM SENIOR PRIVATE CLIENT ADVISOR SOB (shortness of breath) Hypotension, unspecified hypotension type Coronary artery disease involving [place] coronary artery of [place] heart, unspecified whether angina present Orthostatic syncope Dyslipidemia CBC WITH AUTO DIFFERENTIAL Routine 07/01/2024 12:21 PM SENIOR PRIVATE CLIENT ADVISOR SOB (shortness of breath) Hypotension, unspecified hypotension type Coronary artery disease involving [place] coronary artery of [place] heart, unspecified whether angina present Orthostatic syncope Dyslipidemia COMPREHENSIVE METABOLIC PANEL Routine 07/01/2024 12:21 PM SENIOR PRIVATE CLIENT ADVISOR SOB (shortness of breath) Hypotension, unspecified hypotension type Coronary artery disease involving [place] coronary artery of [place] heart, unspecified whether angina present Orthostatic syncope Dyslipidemia LIPID PANEL Routine 07/01/2024 12:21 PM SENIOR PRIVATE CLIENT ADVISOR SOB (shortness of breath) Hypotension, unspecified hypotension type Coronary artery disease involving [place] coronary artery of [place] heart, unspecified whether angina present Orthostatic syncope Dyslipidemia TROPONIN I HIGH-SENSITIVITY Routine 07/01/2024 12:21 PM SENIOR PRIVATE CLIENT ADVISOR SOB (shortness of breath) Hypotension, unspecified hypotension type Coronary artery disease involving [place] coronary artery of [place] heart, unspecified whether angina present Orthostatic syncope Dyslipidemia PRO B-TYPE NATRIURETIC PEPTIDE Routine 07/01/2024 12:21 PM SENIOR PRIVATE CLIENT ADVISOR SOB (shortness of breath) Hypotension, unspecified hypotension type Coronary artery disease involving [place] coronary artery of [place] heart, unspecified whether angina present Orthostatic syncope Dyslipidemia VITAMIN B12 Routine 07/01/2024 12:21 PM SENIOR PRIVATE CLIENT ADVISOR SOB (shortness of breath) Hypotension, unspecified hypotension type Coronary artery disease involving [place] coronary artery of [place] heart, unspecified whether angina present Orthostatic syncope Dyslipidemia FOLATE Routine 07/01/2024 12:21 PM SENIOR PRIVATE CLIENT ADVISOR SOB (shortness of breath) Hypotension, unspecified hypotension type Coronary artery disease involving [place] coronary artery of [place] heart, unspecified whether angina present Orthostatic syncope Dyslipidemia LIPOPROTEIN A (LPA) Routine 07/01/2024 1 2:21 PM SENIOR PRIVATE CLIENT ADVISOR SOB (shortness of breath) Coronary artery disease involving [place] coronary artery of [place] heart, unspecified whether angina present Dyslipidemia Family history of premature CAD ECG 12-LEAD Routine 07/01/2024 9:04 AM SENIOR PRIVATE CLIENT ADVISOR SOB (shortness of breath) Coronary artery calcification from Last 3 Months Results * STRESS ECHO PHARMACOLOGIC W DOPPLER/CF W CONTRAST (07/13/2024 3:09 PM CDT) Anatomical Region Laterality Modality Ultrasound 07/13/2024 1:45 PM CDT Narrative 07/13/2024 4:55 PM CDT [facility] [place] [address] Pharmacologic Stress Transthoracic Echocardiographic Report Patient Name: SHADIA PLASCENCIA J : 1960 (64y 1m) Gender: F Study Date: 07/13/2024 01:45:00 PM Ht(Inch): 64 Wt(Lb): 155.01 BSA: 1.78 Environmental Epidemiologist: Sandra Johnson [facility] Location: [facility] Order Provider: NNEKA MARIN BMI: 26.6 Ref Provider: NNEKA MARIN - PROCEDURES: Stress Echo Report: Pharmacologic Stress Echocardiography,transthoracic, real- time with image documentation (2D), includes M-Mode recording, Doppler Echocardiography and Doppler color flow when performed, during pharmacologic induced peak heart rate with interpretation and report; including performance of continuous electrocardiographic monitoring, with physician supervision. Contrast: Contrast Enhancement was Employed: used Perflutren contrast because 2 of 16 LV wall segments in any view not visualized, using the volume necessary to obtain adequate images. 2.3 ml Optison Administered, (0.7 ml wasted). Performed By: Veronika Valera RN. Supervising Physician: Dr. Mehdi Hall. Patient Assessment: The patient has had no Caffeine. The patient was NPO. The patient has no implantable devices. Procedure Notes: IV Access Placement: left antecubital fossa. Catheter Size: 22 gauge. Patient has been given instructions and understands the test, consent obtained. Patient has been NPO for 4 hours. Medications Held: None. INDICATIONS: R06.02 Shortness of breath, I95.9 Hypotension, unspecified, I25.10 Atherosclerotic heart disease of [place] coronary artery without angina pectoris, I95.1 Orthostatic hypotension, and E78.5 Hyperlipidemia, unspecified. CONCLUSIONS: 1. No imaging or ECG evidence of ischemia on dobutamine stress echo. 2. Normal left ventricular size based on volume index. Normal left ventricular systolic function. The Ejection Fraction (Phillip's) is measured at 58 %. Normal diastolic function. The average global longitudinal strain is abnormal. 3. Normal right ventricular size. Normal right ventricular systolic function. 4. Resting Segmental Wall Motion Analysis: Total wall motion score is 1.00. There are no regional wall motion abnormalities. 5. Peak Segmental Wall Motion Analysis: Total wall motion score is 1.00. There are no regional wall motion abnormalities. 6. No hemodynamically significant valve disease. 7. Estimated PASP cannot be evaluated due to inadequate TR jet. 8. No pericardial effusion. 9. No prior study for comparison. COMPARISONS: No previous study available for comparison. ATTESTATION: I have personally reviewed this study with a fellow in a teaching setting and attest to the findings and conclusions. DISCLAIMER: The study images and the final report will be retained in the patient chart by the Echo Laboratory for the legally required time period. This chart constitutes the legal record of any testing performed. FINDINGS: Left Ventricle: Normal left ventricular size based on volume index. Normal left ventricular systolic function. The Ejection Fraction (Phillip's) is measured at 58 %. Normal diastolic function. The average global longitudinal strain is abnormal. The LV global strain is: -15.7 %. Right Ventricle: Normal right ventricular size. Normal right ventricular systolic function. Left Atrium: The left atrium is normal in size. Right Atrium: The right atrium is normal in size. Mitral Valve: Normal mitral valve structure. Mild mitral valve regurgitation. No stenosis present. Aortic Valve: Trileaflet aortic valve. Mildly thickened aortic valve leaflets. No aortic regurgitation. No aortic valve stenosis. Tricuspid Valve: Normal Tricuspid valve structure. No tricuspid regurgitation. PASP cannot be evaluated due to inadequate TR jet. Pulmonic Valve: Normal pulmonic valve structure. Pulmonic Valve is not well visualized. Pericardium: No pericardial effusion. Aorta: Normal aortic root size. Normal aortic root size when indexed. The ascending aorta is normal in size when indexed. IVC: IVC is normal in size. The IVC was <2.1 cm and collapsibility >50%. (est. RA pressure 0-5 mmHg). Resting ECG: Normal sinus rhythm. Premature atrial contractions. Premature ventricular contractions. Nonspecific T wave abnormality in AVL and V2. Stress Data: Peak dose of Dobutamine was 40.00 mcg/kg/min Total micrograms of Atropine was 0.40 mg Total milligrams of Esmolol was 0 mg Baseline HR: 90 bpm Baseline BP: 132/81 mmHg 10 mcg/kg/min: 91 bpm 10 mcg/kg/min: 122/58 mmHg 30 mcg/kg/min: 117 bpm 30 mcg/kg/min: 107/48 mmHg 40 mcg/kg/min: 144 bpm 40 mcg/kg/min: 144/47 mmHg Peak HR: 144 bpm Peak BP: 144/ 47 mmHg mmHg Predicted Maximal HR: 155 Percent Predicted Max HR Achieved: 93 % HR Response: Heart rate response is appropriate. BP Response: Blood pressure response is appropriate. Stress ECG: No ischemic ST changes. Stress LV Function: Normal hyperdynamic contractile response with no inducible ischemia. Reason for Termination: Target HR Achieved. Arrhythmia: Premature atrial contractions during exercise. Premature ventricular contractions occurred during exercise. Cardiac Symptoms: Symptoms with stress were patient had no stress related symptoms. Resting Segmental Wall Motion Analysis: Total wall motion score is 1.00. There are no regional wall motion abnormalities. Low Dose Segmental Wall Motion Analysis: Total wall motion score is 1.00. There are no regional wall motion abnormalities. Peak Segmental Wall Motion Analysis: Total wall motion score is 1.00. There are no regional wall motion abnormalities. MEASUREMENTS: 2D/MM Value Range Doppler Value Range EDV Mod BP 62.74 ml [ 46.00 - 106.00 ] AV Peak Giuliano 1.4 m/s [ 1.0 - 1.7 ] LV EDV Index 35.25 ml/m2 AV Peak PG 7.84 mmHg ESV Mod BP 26.07 ml [ 14.00 - 42.00 ] AV Mean PG 5 mmHg EF Mod BP 58 % [ 54 - 74 ] AV VTI 26.5 cm LV GLS -15.7 % [ -25.0 - -18.0 ] LVOT Peak Giuliano 1.0 m/s [ 0.7 - 1.1 ] LA Length 4C 4.55 cm LVOT Peak PG 4.00 mmHg LA Length 2C 4.36 cm LVOT Mean PG 2 mmHg LA Volume BP 23.09 ml LVOT VTI 18.9 cm LA Volume Index 12.97 ml/m2 [ 16.00 - 34.00 ] LVOT Diam 2.02 cm RV Base Dimen 2D 2.9 cm [ 2.5 - 4.2 ] LYNDON VTI 2.28 cm2 TAPSE 2.27 cm [ 1.71 - 5.00 ] LVOT/AV VTI 0.71 - Dimensionless index (DVI) RA Volume 21.30 ml MV E Peak Giuliano 0.6 m/s [ 0.6 - 1.3 ] RA Volume Index 11.97 ml/m2 MV A Peak Giuliano 1.0 m/s [ 1.0 - 1.2 ] AoR Diam 2D 2.84 cm [ 2.70 - 3.70 ] MV E/A 0.6 ratio [ 0.8 - 1.5 ] Ao Root Index 1.60 cm/m2 [ 1.00 - 2.00 ] MV Decel Time 151.56 msec [ 104.00 - 258.00 ] Asc Ao Diam 2D 2.70 cm Med E` Giuliano 8.9 cm/sec [ 8.0 - 25.0 ] Asc Ao Index 1.52 cm/m2 Lat E` Giuliano 12.6 cm/sec [ 10.0 - 25.0 ] Average E/E` 5.58 Electronically Signed By: Bladimir Hall M.D. 07/13/2024 4:54:18 PM CDT Wall Motion Analysis - Resting Wall Motion Analysis - Low Wall Motion Analysis - Peak Procedure Note Bladimir Hall MD - 07/13/2024 [facility] Card[facility] [place] [address] Pharmacologic Stress Transthoracic Echocardiographic Report Patient Name: SHADIA PLASCENCIA J : 1960 (64y 1m) Gender: F Study Date: 07/13/2024 01:45:00 PM Ht(Inch): 64 Wt(Lb): 155.01 BSA: 1.78 Environmental Epidemiologist: Sandra Johnson [facility] Location: [facility] Order Provider:NNEKA MARIN BMI: 26.6 Ref Provider: NNEKA MARIN - PROCEDURES: Stress Echo Report: Pharmacologic Stress Echocardiography,transthoracic,real- time with image documentation (2D), includes M-Mode recording, DopplerEchocardiography and Doppler color flow when performed, during pharmacologic induced peak heart ratewith interpretation and report; including performance of continuouselectrocardiographic monitoring, with physician supervision. Contrast: Contrast Enhancement was Employed: used Perflutren contrastbecause 2 of 16 LV wall segments in any view not visualized, using the volume necessary toobtain adequate images. 2.3 ml Optison Administered, (0.7 ml wasted). Performed By: Veronika Valera RN. Supervising Physician: Dr. Mehdi Hall. Patient Assessment: The patient has had no Caffeine. The patient was NPO.The patient has no implantable devices. Procedure Notes: IV Access Placement: left antecubital fossa. CatheterSize: 22 gauge. Patient has been given instructions and understands the test, consentobtained. Patient has been NPO for 4 hours. Medications Held: None. INDICATIONS: R06.02 Shortness of breath, I95.9 Hypotension, unspecified, I25.10Atherosclerotic heart disease of [place] coronary artery without angina pectoris, I95.1Orthostatic hypotension, and E78.5 Hyperlipidemia, unspecified. CONCLUSIONS: 1. No imaging or ECG evidence of ischemia on dobutamine stress echo. 2. Normal left ventricular size based on volume index. Normal leftventricular systolic function. The Ejection Fraction (Phillip's) is measured at 58 %. Normaldiastolic function. The average global longitudinal strain is abnormal. 3. Normal right ventricular size. Normal right ventricular systolicfunction. 4. Resting Segmental Wall Motion Analysis: Total wall motion score is1.00. There are no regional wall motion abnormalities. 5. Peak Segmental Wall Motion Analysis: Total wall motion score is 1.00.There are no regional wall motion abnormalities. 6. No hemodynamically significant valve disease. 7. Estimated PASP cannot be evaluated due to inadequate TR jet. 8. No pericardial effusion. 9. No prior study for comparison. COMPARISONS: No previous study available for comparison. ATTESTATION: I have personally reviewed this study with a fellow in a teaching settingand attest to the findings and conclusions. DISCLAIMER: The study images and the final report will be retained in the patientchart by the Echo Laboratory for the legally required time period. This chart constitutesthe legal record of any testing performed. FINDINGS: Left Ventricle: Normal left ventricular size based on volume index. Normalleft ventricular systolic function. The Ejection Fraction (Phillip's) ismeasured at 58 %. Normal diastolic function. The average global longitudinal strain isabnormal. The LV global strain is: -15.7 %. Right Ventricle: Normal right ventricular size. Normal right ventricularsystolic function. Left Atrium: The left atrium is normal in size. Right Atrium: The right atrium is normal in size. Mitral Valve: Normal mitral valve structure. Mild mitral valveregurgitation. No stenosis present. Aortic Valve: Trileaflet aortic valve. Mildly thickened aortic valveleaflets. No aortic regurgitation. No aortic valve stenosis. Tricuspid Valve: Normal Tricuspid valve structure. No tricuspidregurgitation. PASP cannot be evaluated due to inadequate TR jet. Pulmonic Valve: Normal pulmonic valve structure. Pulmonic Valve is notwell visualized. Pericardium: No pericardial effusion. Aorta: Normal aortic root size. Normal aortic root size when indexed. Theascending aorta is normal in size when indexed. IVC: IVC is normal in size. The IVC was <2.1 cm and collapsibility >50%.(est. RA pressure 0-5 mmHg). Resting ECG: Normal sinus rhythm. Premature atrial contractions. Prematureventricular contractions. Nonspecific T wave abnormality in AVL and V2. Stress Data: Peak dose of Dobutamine was 40.00 mcg/kg/min Total micrograms of Atropine was 0.40 mg Total milligrams of Esmolol was 0 mg Baseline HR: 90 bpm Baseline BP: 132/81 mmHg 10 mcg/kg/min: 91 bpm 10 mcg/kg/min: 122/58 mmHg 30 mcg/kg/min: 117 bpm 30 mcg/kg/min: 107/48 mmHg 40 mcg/kg/min: 144 bpm 40 mcg/kg/min: 144/47 mmHg Peak HR: 144 bpm Peak BP: 144/ 47 mmHg mmHg Predicted Maximal HR: 155 Percent Predicted Max HR Achieved: 93 % HR Response: Heart rate response is appropriate. BP Response: Blood pressure response is appropriate. Stress ECG: No ischemic ST changes. Stress LV Function: Normal hyperdynamic contractile response with noinducible ischemia. Reason for Termination: Target HR Achieved. Arrhythmia: Premature atrial contractions during exercise. Prematureventricular contractions occurred during exercise. Cardiac Symptoms: Symptoms with stress were patient had no stress relatedsymptoms. Resting Segmental Wall Motion Analysis: Total wall motion score is 1.00.There are no regional wall motion abnormalities. Low Dose Segmental Wall Motion Analysis: Total wall motion score is 1.00.There are no regional wall motion abnormalities. Peak Segmental Wall Motion Analysis: Total wall motion score is 1.00.There are no regional wall motion abnormalities. MEASUREMENTS: 2D/MM Value Range DopplerValue Range EDV Mod BP 62.74 ml [ 46.00 - 106.00 ] AV Peak Vel1.4 m/s [ 1.0 - 1.7 ] LV EDV Index 35.25 ml/m2 AV Peak PG7.84 mmHg ESV Mod BP 26.07 ml [ 14.00 - 42.00 ] AV Mean PG5 mmHg EF Mod BP 58 % [ 54 - 74 ] AV VTI26.5 cm LV GLS -15.7 % [ -25.0 - -18.0 ] LVOT Peak Vel1.0 m/s [ 0.7 - 1.1 ] LA Length 4C 4.55 cm LVOT Peak PG4.00 mmHg LA Length 2C 4.36 cm LVOT Mean PG2 mmHg LA Volume BP 23.09 ml LVOT VTI18.9 cm LA Volume Index 12.97 ml/m2 [ 16.00 - 34.00 ] LVOT Diam2.02 cm RV Base Dimen 2D 2.9 cm [ 2.5 - 4.2 ] LYNDON VTI2.28 cm2 TAPSE 2.27 cm [ 1.71 - 5.00 ] LVOT/AV VTI0.71 - Dimensionless index (DVI) RA Volume 21.30 ml MV E Peak Vel0.6 m/s [ 0.6 - 1.3 ] RA Volume Index 11.97 ml/m2 MV A Peak Vel1.0 m/s [ 1.0 - 1.2 ] AoR Diam 2D 2.84 cm [ 2.70 - 3.70 ] MV E/A0.6 ratio [ 0.8 - 1.5 ] Ao Root Index 1.60 cm/m2 [ 1.00 - 2.00 ] MV Decel Pifz129.56 msec [ 104.00 - 258.00 ] Asc Ao Diam 2D 2.70 cm Med E` Vel8.9 cm/sec [ 8.0 - 25.0 ] Asc Ao Index 1.52 cm/m2 Lat E` Vel12.6 cm/sec [ 10.0 - 25.0 ] Average E/E` 5.58 Electronically Signed By: Bladimir Hall M.D. 07/13/2024 4:54:18 PM CDT Wall Motion Analysis - Resting Wall Motion Analysis - Low Wall Motion Analysis - Peak us Nneka Marin MD CV ECHO PROCEDURES Final Resu lt * Troponin I high-sensitivity (07/01/2024 12:21 PM SENIOR PRIVATE CLIENT ADVISOR) Trop I hs <4 <=17 ng/L Comment: Interpretive Data For further hscTnI resources including the diagnostic algorithm and an aid in interpretation, copy and paste this link: [email or web address].testcatalog.org/show/[email or web address] Current Interpretive Data last revised 2019. Blood 07/01/2024 12:2 1 PM SENIOR PRIVATE CLIENT ADVISOR 07/01/2024 12:26 PM SENIOR PRIVATE CLIENT ADVISOR Nneka Marin MD LAB BLOOD ORDERABLES Final Re sult Performing Organization Address [facility] Co de Phone Number [facility] Department [place] [employer] [place] [place] [address] * eGFR (07/01/2024 12:21 PM SENIOR PRIVATE CLIENT ADVISOR) eGFR 86 >=60 mL/min/1. 73 m2 Comment: Interpretive Data Reference Interval Normal >/= 90 mL/min/1.73m2 Mildly decreased* 60 - 89 mL/min/1.73m2 Mildly to moderately decreased 45 - 59 mL/min/1.73m2 Moderately to severely decreased 30 - 44 mL/min/1.73m2 Severely decreased 15 - 29 mL/min/1.73m2 Kidney Failure < 15 mL/min/1.73m2 *Relative to young adult level Estimated glomerular filtration rate is determined by the 2020 CKD-EPI equation recommended by the National Kidney Foundation (A Unifying Approach to GFR Estimation: Recommendations of the NKF-ASK Task Force on Reassessing the Inclusion of Race in Diagnosing Kidney Disease, JASN 2020). The CKD-EPI equation should not be used for patients with unstable renal function and has not been validated in children and those over 70. Current interpretive data was last reviewed 2021. Blood 07/01/2024 12:2 1 PM SENIOR PRIVATE CLIENT ADVISOR 07/01/2024 12:38 PM SENIOR PRIVATE CLIENT ADVISOR us Nneka Marin MD LAB BLOOD ORDERABLES Final Re sult Performing Organization Address [facility] Co de Phone Number [facility] Department [place] [address] * Pro B-type natriuretic peptide (07/01/2024 12:21 PM SENIOR PRIVATE CLIENT ADVISOR) NT-proBNP 137 <=300 pg/mL Comment: Interpretive Comments: A. Dyspnea in Acute Care Setting All Ages: < 300 pg/ml, acute heart failure unlikely. < 50 yrs: 300 - 450 pg/ml, further investigation warranted. > 450 pg/ml, acute heart failure likely. 50 - 74 yrs: 300 - 900 pg/ml, further investigation warranted. > 900 pg/ml, acute heart failure likely . > or = 75 yrs: 450 - 1800 pg/ml, further investigation warranted. > 1800 pg/ml, acute heart failure likely. B. Non-acute Setting < 75 yrs < 125 pg/ml, rules out heart failure. > or = 125 pg/ml, further investigation warranted. > or = 75 yrs < 450 pg/ml, rules out heart failure. > or = 450 pg/ml, further investigation warranted. - Knowledge of each individual patient's NT-proBNP range may be more useful than using similar cut-points for every patient. Please note that marked elevations in NT-proBNP levels may be observed in state other than Left Ventricular Congestive Failure, including: acute coronary syndromes, right heart strain/failure (including pulmonary embolism and cor pulmonale), critical illness, renal failure, as well as advanced age. - References: 1. Ion BANERJEE et.al. Eur Heart J. 2006:27:330-337. 2. Radha RW, Lore CHRISTOPHER. J. AM Luiz Cardiol: Cardiovasc Imag. 2009;2: 216- 225. Interpretive Data Last Revised Date: 2017. Blood 07/01/2024 12:2 1 PM SENIOR PRIVATE CLIENT ADVISOR 07/01/2024 12:26 PM SENIOR PRIVATE CLIENT ADVISOR us Nneka Marin MD LAB BLOOD ORDERABLES Final Re sult [facility] Department [place] [address] * (ABNORMAL) CBC with auto differential (07/01/2024 12:21 PM SENIOR PRIVATE CLIENT ADVISOR) WBC 5.4 3.8 - 9.9 K/cumm Hgb 11.9 11.9 - 15.5 g/dL [facility] Hct 34.6(L) 35.6 - 45.5 % [facility] Plt 170 150 - 400 K/cumm [facility] MPV 10.7 9.1 - 12.3 fL [facility] RBC 3.76(L) 3.90 - 5.20 M/cumm [facility] MCV 92.0 81.3 - 96.4 fL [facility] MCH 31.6 27.1 - 33.3 pg [facility] MCHC 34.4 32.3 - 35.7 g/dL [facility] RDW CV 12.4 11.1 - 14.9 % [facility] RDW SD 41.7 35.7 - 48.1 fL [facility] NRBC abs 0.00 0.00 - 0.01 K/cumm [facility] Blood 07/01/2024 12:2 1 PM SENIOR PRIVATE CLIENT ADVISOR 07/01/2024 12:26 PM SENIOR PRIVATE CLIENT ADVISOR us Nneka Marin MD LAB BLOOD ORDERABLES Final Re sult [facility] Department [place] [address] * Lipoprotein a (LPa) (07/01/2024 12:21 PM SENIOR PRIVATE CLIENT ADVISOR) Lipoprotein A <7 <75 nmol/L [facility] Comment: ADDITIONAL INFORMATION Please notice that Lp(a) values are reported in molar units (nmol/L). These units are recommended by professional society guidelines and expert opinion statements. Measured results and risk thresholds are higher than those generated using mass units (mg/dL). Cardiovascular risk increases starting at 75 nmol/L. Lp(a) >=125 nmol/L is considered a risk enhancing factor by the [place] [employer]. This test has been modified from the tieing machine operator's instructions. Its performance characteristics were determined by [facility] in a manner consistent with CLIA requirements. This test has not been cleared or approved by the U.S. Food and Drug Administration. Test Performed by: [facility] - [address] [address] [employer] Roller Operator: Turner Lora Ph.D.; CLIA# [id number] Blood 07/01/2024 12:2 1 PM SENIOR PRIVATE CLIENT ADVISOR 07/01/2024 2:14 PM SENIOR PRIVATE CLIENT ADVISOR us Nneka Marin MD LAB BLOOD ORDERABLES Final Re sult [facility] Department [place] [address] [facility] * (ABNORMAL) Manual Differential (07/01/2024 12:21 PM SENIOR PRIVATE CLIENT ADVISOR) Differential Manual Cells Counted [facility] Neutrophil abs 3.3 1.5 - 6.5 K/cumm [facility] Imm gran abs 0.0 0.0 - 0.1 K/cumm [facility] Lymphocyte abs 1.7 0.8 - 3.3 K/cumm [facility] Monocyte abs 0.2 0.2 - 0.8 K/cumm [facility] Eosinophil abs 0.2 0.0 - 0.5 K/cumm [facility] Neutrophil pct 60.9 % [facility] Comment: Interpretive Data Percent cell count reference ranges are not reported, since discordance with absolute values may lead to misinterpretation of CBC data. Current Interpretive Data was last revised on 2017. Lymphocyte pct 24.3 % [facility] Comment: Interpretive Data Percent cell count reference ranges are not reported, since discordance with absolute values may lead to misinterpretation of CBC data. Current Interpretive Data was last revised on 2017. Monocyte pct 3.5 % [facility] Comment: Interpretive Data Percent cell count reference ranges are not reported, since discordance with absolute values may lead to misinterpretation of CBC data. Current Interpretive Data was last revised on 2017. Eosinophil pct 4.3 % [facility] Comment: Interpretive Data Percent cell count reference ranges are not reported, since discordance with absolute values may lead to misinterpretation of CBC data. Current Interpretive Data was last revised on 2017. Variant lymph pct 7.0(H) 0.0 - 0.0 % [facility] Blood 07/01/2024 12:2 1 PM SENIOR PRIVATE CLIENT ADVISOR 07/01/2024 12:44 PM SENIOR PRIVATE CLIENT ADVISOR Nneka Marin MD LAB BLOOD ORDERABLES Final Re sult Performing Organization Address [facility] Co de Phone Number [facility] [place] [employer] [place] [place] [address] * Folate (07/01/2024 12:21 PM SENIOR PRIVATE CLIENT ADVISOR) Pathologist [facility] Folic acid >20.0 >=5.0 ng/mL Blood 07/01/2024 12:2 1 PM SENIOR PRIVATE CLIENT ADVISOR 07/01/2024 12:26 PM SENIOR PRIVATE CLIENT ADVISOR Nneka Marin MD LAB BLOOD ORDERABLES Final Re sult Performing Organization Address [facility] Co de Phone Number [facility] [place] [address] * Vitamin B12 (07/01/2024 12:21 PM SENIOR PRIVATE CLIENT ADVISOR) Vitamin B12 788 230 - 1,250 pg/mL Blood 07/01/2024 12:2 1 PM SENIOR PRIVATE CLIENT ADVISOR 07/01/2024 12:26 PM SENIOR PRIVATE CLIENT ADVISOR Nneka Marin MD LAB BLOOD ORDERABLES Final Re sult Performing Organization Address [facility] Co de Phone Number [facility] [place] [address] * Lipid panel (07/01/2024 12:21 PM SENIOR PRIVATE CLIENT ADVISOR) Cholesterol 123 30 - 199 mg/dL Comment: Interpretive Data Ages < or = 19 years Acceptable: <170 mg/dL Borderline high: 170-199 mg/dL High: >or= 200 mg/dL Ages > or = 20 years Desirable: <200 mg/dL Borderline high: 200-239 mg/dL High: >or= 240 mg/dL Literature References: 1. Expert Panel on Integrated Guidelines for Cardiovascular Health and Risk Reduction in Children and Adolescents. Pediatrics 2011;128:S213 2. NCEP Expert Panel. Circulation 2004;110:227 Current Interpretive Data was last revised on 2017. Triglycerides 110 <=149 mg/dL [facility] Comment: Interpretive Data Ages < or = 9 years Acceptable: <75 mg/dL Borderline high: 75-99 mg/dL High: >or= 100 mg/dL Ages 10 to 20 years Acceptable: <90 mg/dL Borderline high: 90-129 mg/dL High: >or= 130 mg/dL Ages > or = 20 years Desirable: <150 mg/dL Borderline high: 150-199 mg/dL High: 200-499 mg/dL Very high: >or= 499 mg/dL Literature References: 1. Expert Panel on Integrated Guidelines for Cardiovascular Health and Risk Reduction in Children and Adolescents. Pediatrics 2011;128:S213 2. NCEP Expert Panel. Circulation 2004;110:227 Current Interpretive Data was last revised on 2017. HDL 45 >=40 mg/dL [facility] Comment: Interpretive Data Ages < or = 19 years Acceptable: >45 mg/dL Borderline low: 40-45 mg/dL Low: <40 mg/dL Ages > or = 20 years Desirable: >or= 60 mg/dL Low: <40 mg/dL Literature References: 1. Expert Panel on Integrated Guidelines for Cardiovascular Health and Risk Reduction in Children and Adolescents. Pediatrics 2011;128:S213 2. NCEP Expert Panel. Circulation 2004;110:227 Current Interpretive Data was last revised on 2017. LDL, calculated 58 <=129 mg/dL [facility] Comment: Interpretive Data Ages < or = 19 years Acceptable: <110 mg/dL Borderline high: 110-129 mg/dL High: >or= 130 mg/dL Ages > or = 20 years Optimal: <100 mg/dL Near optimal: 100-129 mg/dL Borderline high: 130-159 mg/dL High: >160 mg/dL Calculated using the Marquez LDL-C estimating equation. This equation was implemented on 2023. Prior to this date LDL-C was estimated using the Friedewald equation. Literature References: 1. Expert Panel on Integrated Guidelines for Cardiovascular Health and Risk Reduction in Children and Adolescents. Pediatrics 2011;128:S213 2. NCEP Expert Panel. Circulation 2004;110:227 3. Jimmy Santamaria al. JUAN Cardiol. 2019August 27;5(5):540-548. doi: 10.1001/[email or web address].2020.0013 Current Interpretive Data was last revised on 2023. Non-HDL Cholesterol 78 mg/dL [facility] Comment: Interpretive Data Ages < or = 19 years Acceptable: <120 mg/dL Borderline high: 120-144 mg/dL High: >145 mg/dL Ages > or = 20 years When triglycerides are >200 mg/dL, Non-HDL cholesterol is a secondary target of therapy with treatment goals that are 30 mg/dL greater than the LDL cholesterol target. Literature References: 1. Expert Panel on Integrated Guidelines for Cardiovascular Health and Risk Reduction in Children and Adolescents. Pediatrics 2011;128:S213 2. NCEP Expert Panel. Circulation 2004;110:227 Current Interpretive Data was last revised on 2017. Chol/HDL ratio 3 [facility] Blood 07/01/2024 12:2 1 PM SENIOR PRIVATE CLIENT ADVISOR 07/01/2024 12:26 PM SENIOR PRIVATE CLIENT ADVISOR us Nneka Marin MD LAB BLOOD ORDERABLES Final Re sult [facility] Department [place] [address] * (ABNORMAL) Comprehensive metabolic panel (07/01/2024 12:21 PM SENIOR PRIVATE CLIENT ADVISOR) Sodium 141 135 - 145 mmol/L Potassium, pl 3.8 3.3 - 4.9 mmol/L [facility] Chloride 104 97 - 110 mmol/L [facility] CO2 29 22 - 32 mmol/L [facility] Anion gap 8 2 - 15 mmol/L [facility] BUN 5(L) 6 - 25 mg/dL [facility] Creatinine 0.77 0.60 - 1.10 mg/dL [facility] Glucose 88 70 - 199 mg/dL [facility] Comment: Interpretive Data Fasting glucose >/= 126 mg/dl is diagnostic for diabetes. Fasting is defined as no caloric intake for at least 8 hours. Fasting glucose between 100 mg/dl to 125 mg/dl is diagnostic of prediabetes. In a patient with classic symptoms of hyperglycemia or hyperglycemic crisis, a random glucose >/= 200 mg/dl is diagnostic for diabetes. In the absence of unequivocal hyperglycemia, results should be confirmed by repeat testing. The classification and Diagnosis of Diabetes Diabetes Care 2021; 46: S19-S40. Current interpretive data was last revised 2022. Calcium 10.0 8.5 - 10.3 mg/dL [facility] Bilirubin, total 0.5 0.1 - 1.2 mg/dL [facility] Protein, pl 6.8 6.5 - 8.5 g/dL [facility] Albumin 4.1 3.5 - 5.0 g/dL [facility] Alk phos 82 40 - 130 Units/L [facility] ALT 16 7 - 45 Units/L [facility] AST 18 10 - 45 Units/L [facility] Blood 07/01/2024 12:2 1 PM SENIOR PRIVATE CLIENT ADVISOR 07/01/2024 12:26 PM SENIOR PRIVATE CLIENT ADVISOR us Nneka Marin MD LAB BLOOD ORDERABLES Final Re [facility] Organization Address City/State/ZIP Co de Phone Number [facility] [place] [address] * ECG 12 lead (07/01/2024 9:04 AM SENIOR PRIVATE CLIENT ADVISOR) us Nneka Marin MD ECG ORDERABLES Edited Result - Final from Last 3 Months Insurance MEDICARE [facility] MEDICARE [facility] Care Teams Bilingual Medical Assistant Relationship Specialty Start Date End Date Godwin Garcia PA [address] [place] [id number] PCP - General Physician Distance Education Faculty Liaison 07/01/24
--- OUTSIDE RECORDS SUMMARY | 2024-08-20 07:37 | XMS_ITS | Encounter Summary ---
Author Organization [facility] Address [address] [place] [address] Care Team Providers Care Manager Relationship Name Role Phone Dru Caruso MD Primary Care Provider Yannick Victor MD Unavailable [phone] Encounter Details Date Type Department Care Team (Late st Contact Info) Description 02/01/2024 Cabe na Mala Message Enc [facility] eld [address] [place] [address] Yannick Victor MD [address] [place] [id number] Wellbutrin Social History Tobacco Use Types Packs/Day Years [...] on filedocumented in this encounter Care Teams Manager Relationship Relationship Specialty Start Date End Date Dru Caruso MD [address] [place] [address] PCP - General FAMILY PRACTICE 12/03/17 Yannick Victor MD [address] [place] [phone] Consulting Physician INTERVENTIONAL CARDIOLOGY 12/05/23 documented as of this encounter
--- OUTSIDE RECORDS SUMMARY | 2024-08-20 07:37 | XMS_ITS | Referral Summary ---
Author Organization [facility] [address] Address [address] [place] [id number] Care Team Providers Care Marketing Database Consultant Name Role Phone Godwin Garcia Primary Care Provider Encounters Date Type Department Care Team Description 08/10/2024 10:00 AM CDT Procedure visit [facility] Neurological Testing [address] [facility] 6th [place] [address] [place] [address] SOB (shortness of breath); Coronary artery calcification; Orthostatic hypotension; Dyslipidemia 07/14/2024 Results Follow-Up [facility] Cardiology [address] [place] [address] 8th [place] [address] [place] [address] Nneka Marin MD 07/13/2024 1:34 PM CDT - 07/13/2024 11:59 PM CDT Hospital Encounter [facility] Cardiac Diagnostic Lab [address] [place] [address] SOB (shortness of breath); Hypotension, unspecified hypotension type; Coronary artery disease involving hughes coronary artery of hughes heart, unspecified whether angina present; Orthostatic syncope; Dyslipidemia Discharge Disposition: Discharge to home or self care 07/10/2024 Telephone [facility] Cardiology [facility] Medicine 8th [place] [address] [place] [address] Nneka Marin MD 07/01/2024 12:10 PM MAINTENANCE WORKER SWIMMING POOL Lab [facility] Advanced Medicine ([facility]) [address] [place] [phone] SOB (shortness of breath); Coronary artery disease involving hughes coronary artery of hughes heart, unspecified whether angina present; Dyslipidemia; Family history of premature CAD; Hypotension, unspecified hypotension type; Orthostatic syncope 07/01/2024 Orders Only [facility] Cardiology [address] [place] [address] 8th [place] [address] [place] [address] Nneka Marin MD Orthostatic syncope (Primary Dx) 07/01/2024 Results Follow-Up [address] [place] [address] [place] [address] Nneka Marin MD 07/01/2024 Orders Only [address] [place] [address] [place] [address] Nneka Marin MD 07/01/2024 9:00 AM MAINTENANCE WORKER SWIMMING POOL Office Visit [facility] Cardiology [address] [place] [address] 8th [place] [address] [place] [address] Nneka Marin MD Orthostatic hypotension (Primary Dx); SOB (shortness of breath); Coronary artery calcification; Dyslipidemia; Family history of premature CAD from Last 3 Months Allergies Active Allergy Reactions Criticality Noted Date [...] Mixed hyperlipidemia 12/17/2017 Other chest pain 12/17/2017 Immunizations Immunization Administration Dates Next Due Hep [...] on file Legal Sex Female 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 Gender Identity Not on file Sexual Orientation Not on file Last Filed Vital Signs Vital Sign Reading Time Taken Comments Blood Pressure 120/75 07/13/2024 3:09 PM CDT Pulse 103 07/13/2024 3:09 PM CDT Temperature 37.1 C (98.8 F) 09/14/2023 10:15 AM CDT Respiratory Rate 16 09/14/2023 10:15 AM CDT Oxygen Saturation 100% 07/01/2024 9:05 AM MAINTENANCE WORKER SWIMMING POOL Inhaled Oxygen Concentration - - Weight 70.3 kg (155 lb) 07/13/2024 2:19 PM CDT Height 160 cm (5' 3 ) 07/13/2024 2:19 PM CDT Body Mass Index 27.46 07/13/2024 2:19 PM CDT Plan of Treatment Not on file Procedures Procedure Name Priority Date/Time Associated Diagnosis Comments STRESS ECHO PHARMACOLOGIC W DOPPLER/CF W CONTRAST Routine 07/13/2024 3:09 PM CDT SOB (shortness of breath) Hypotension, unspecified hypotension type Coronary artery disease involving hughes coronary artery of hughes heart, unspecified whether angina present Orthostatic syncope Dyslipidemia EGFR Routine 07/01/2024 12:21 PM MAINTENANCE WORKER SWIMMING POOL SOB (shortness of breath) Hypotension, unspecified hypotension type Coronary artery disease involving hughes coronary artery of hughes heart, unspecified whether angina present Orthostatic syncope Dyslipidemia MANUAL DIFFERENTIAL Routine 07/01/2024 1 2:21 PM MAINTENANCE WORKER SWIMMING POOL SOB (shortness of breath) Hypotension, unspecified hypotension type Coronary artery disease involving hughes coronary artery of hughes heart, unspecified whether angina present Orthostatic syncope Dyslipidemia CBC WITH AUTO DIFFERENTIAL Routine 07/01/2024 12:21 PM MAINTENANCE WORKER SWIMMING POOL SOB (shortness of breath) Hypotension, unspecified hypotension type Coronary artery disease involving hughes coronary artery of hughes heart, unspecified whether angina present Orthostatic syncope Dyslipidemia COMPREHENSIVE METABOLIC PANEL Routine 07/01/2024 12:21 PM MAINTENANCE WORKER SWIMMING POOL SOB (shortness of breath) Hypotension, unspecified hypotension type Coronary artery disease involving hughes coronary artery of hughes heart, unspecified whether angina present Orthostatic syncope Dyslipidemia LIPID PANEL Routine 07/01/2024 12:21 PM MAINTENANCE WORKER SWIMMING POOL SOB (shortness of breath) Hypotension, unspecified hypotension type Coronary artery disease involving hughes coronary artery of hughes heart, unspecified whether angina present Orthostatic syncope Dyslipidemia TROPONIN I HIGH-SENSITIVITY Routine 07/01/2024 12:21 PM MAINTENANCE WORKER SWIMMING POOL SOB (shortness of breath) Hypotension, unspecified hypotension type Coronary artery disease involving hughes coronary artery of hughes heart, unspecified whether angina present Orthostatic syncope Dyslipidemia PRO B-TYPE NATRIURETIC PEPTIDE Routine 07/01/2024 12:21 PM MAINTENANCE WORKER SWIMMING POOL SOB (shortness of breath) Hypotension, unspecified hypotension type Coronary artery disease involving hughes coronary artery of hughes heart, unspecified whether angina present Orthostatic syncope Dyslipidemia VITAMIN B12 Routine 07/01/2024 12:21 PM MAINTENANCE WORKER SWIMMING POOL SOB (shortness of breath) Hypotension, unspecified hypotension type Coronary artery disease involving hughes coronary artery of hughes heart, unspecified whether angina present Orthostatic syncope Dyslipidemia FOLATE Routine 07/01/2024 12:21 PM MAINTENANCE WORKER SWIMMING POOL SOB (shortness of breath) Hypotension, unspecified hypotension type Coronary artery disease involving hughes coronary artery of hughes heart, unspecified whether angina present Orthostatic syncope Dyslipidemia LIPOPROTEIN A (LPA) Routine 07/01/2024 1 2:21 PM MAINTENANCE WORKER SWIMMING POOL SOB (shortness of breath) Coronary artery disease involving hughes coronary artery of hughes heart, unspecified whether angina present Dyslipidemia Family history of premature CAD ECG 12-LEAD Routine 07/01/2024 9:04 AM MAINTENANCE WORKER SWIMMING POOL SOB (shortness of breath) Coronary artery calcification from Last 3 Months Results * STRESS ECHO PHARMACOLOGIC W DOPPLER/CF W CONTRAST (07/13/2024 3:09 PM CDT) Anatomical Region Laterality Modality Ultrasound 07/13/2024 1:45 PM CDT Narrative 07/13/2024 4:[address] [facility] [place] [address] Pharmacologic Stress Transthoracic Echocardiographic Report Patient Name: SHADIA PLASCENCIA J : 1960 (64y 1m) Gender: F Study Date: 07/13/2024 01:45:00 PM Ht(Inch): 64 Wt(Lb): 155.01 BSA: 1.78 Plant Quality Manager: Sandra Johnson [facility] Location: [facility] Order Provider: NNEKA MARIN BMI: 26.6 Ref [...] Hypotension, unspecified, I25.10 Atherosclerotic heart disease of hughes coronary artery without angina pectoris, I95.1 Orthostatic [...] Procedure Note Bladimir Hall MD - 07/13/[address] [facility] [place] [address] Pharmacologic Stress Transthoracic Echocardiographic Report Patient Name: SHADIA PLASCENCIA J : 1960 (64y 1m) Gender: F Study Date: 07/13/2024 01:45:00 PM Ht(Inch): 64 Wt(Lb): 155.01 BSA: 1.78 Plant Quality Manager: Sandra Johnson [facility] Location: [facility] Order Provider:NNEKA MARIN BMI: 26.6 Ref Provider: [...] I95.9 Hypotension, unspecified, I25.10Atherosclerotic heart disease of hughes coronary artery without angina pectoris, I95.1Orthostatic hypotension, [...] [ 1.00 - 2.00 ] MV Decel Emrt263.56 msec [ 104.00 - 258.00 ] Asc [...] * Troponin I high-sensitivity (07/01/2024 12:21 PM MAINTENANCE WORKER SWIMMING POOL) Pathologist [facility] Trop I hs <4 <=17 ng/L Comment: Interpretive Data For further hscTnI resources including the diagnostic algorithm and an aid in interpretation, copy and paste this link: [email or web address] Current Interpretive Data last revised 2019. Blood 07/01/2024 12:2 1 PM MAINTENANCE WORKER SWIMMING POOL 07/01/2024 12:26 PM MAINTENANCE WORKER SWIMMING POOL us Nneka Marin MD LAB BLOOD ORDERABLES Final Re sult WIC[facility] Department of Laboratories [place], [place] [id number] * eGFR (07/01/2024 12:21 PM MAINTENANCE WORKER SWIMMING POOL) [facility] eGFR 86 >=60 mL/min/1. 73 m2 Comment: [...] reviewed 2021. Blood 07/01/2024 12:2 1 PM MAINTENANCE WORKER SWIMMING POOL 07/01/2024 12:38 PM MAINTENANCE WORKER SWIMMING POOL us Nneka Marin MD LAB BLOOD ORDERABLES Final Re sult [facility] Department [place] [address] * Pro B-type natriuretic peptide (07/01/2024 12:21 PM MAINTENANCE WORKER SWIMMING POOL) NT-proBNP 137 <=300 pg/mL Comment: Interpretive Comments: [...] Date: 2017. Blood 07/01/2024 12:2 1 PM MAINTENANCE WORKER SWIMMING POOL 07/01/2024 12:26 PM MAINTENANCE WORKER SWIMMING POOL us Nneka Marin MD LAB BLOOD ORDERABLES Final Re sult [facility] Department [place] [address] * (ABNORMAL) CBC with auto differential (07/01/2024 12:21 PM MAINTENANCE WORKER SWIMMING POOL) [facility] WBC 5.4 3.8 - 9.9 K/cumm Hgb 11.9 11.9 - 15.5 g/dL [facility] Hct 34.6(L) 35.6 - 45.5 % [facility] Plt 170 150 - 400 K/cumm [facility] MPV 10.7 9.1 - 12.3 fL [facility] RBC 3.76(L) 3.90 - 5.20 M/cumm [facility] MCV 92.0 81.3 - 96.4 fL [facility] MCH 31.6 27.1 - 33.3 pg [facility] MCHC 34.4 32.3 - 35.7 g/dL [facility] RDW CV 12.4 11.1 - 14.9 % [facility] RDW SD 41.7 35.7 - 48.1 fL [facility] NRBC abs 0.00 0.00 - 0.01 K/cumm [facility] Blood 07/01/2024 12:2 1 PM MAINTENANCE WORKER SWIMMING POOL 07/01/2024 12:26 PM MAINTENANCE WORKER SWIMMING POOL Nneka Marin MD LAB BLOOD ORDERABLES Final Re sult Performing Organization Address [facility] Co de Phone Number W[facility] WISEMAN [facility] [place] [address] * Lipoprotein a (LPa) (07/01/2024 12:21 PM MAINTENANCE WORKER SWIMMING POOL) Pathologist [facility] Lipoprotein A <7 <75 nmol/L [facility] Comment: ADDITIONAL INFORMATION Please notice that Lp(a) values are reported in molar units (nmol/L). These units are recommended by professional society guidelines and expert opinion statements. Measured results and risk thresholds are higher than those generated using mass units (mg/dL). Cardiovascular risk increases starting at 75 nmol/L. Lp(a) >=125 nmol/L is considered a risk enhancing factor by the [employer] Association. This test has been modified from the bench precision assembler's instructions. Its performance characteristics were determined by [facility] in a manner consistent with CLIA requirements. This test has not been cleared or approved by the U.S. Food and Drug Administration. Test Performed by: [address] [address] [place] Examiner: Turner Lora Ph.D.; CLIA# [id number] Blood 07/01/2024 12:2 1 PM MAINTENANCE WORKER SWIMMING POOL 07/01/2024 2:14 PM MAINTENANCE WORKER SWIMMING POOL us Nneka Marin MD LAB BLOOD ORDERABLES Final Re sult Performing Organization Address City/[facility]/ZIP Co de Phone Number WICHO WISEMAN [facility] [place] [address] [facility] Lab * (ABNORMAL) Manual Differential (07/01/2024 12:21 PM MAINTENANCE WORKER SWIMMING POOL) Differential Manual Cells Counted 115 [facility] Neutrophil abs 3.3 1.5 - 6.5 K/cumm [facility] Imm gran abs 0.0 0.0 - 0.1 K/cumm [facility] Lymphocyte abs 1.7 0.8 - 3.3 K/cumm [facility] Monocyte abs 0.2 0.2 - 0.8 K/cumm [facility] Eosinophil abs 0.2 0.0 - 0.5 K/cumm [facility] Neutrophil pct 60.9 % [facility] Comment: Interpretive Data Percent cell count reference ranges are not reported, since discordance with absolute values may lead to misinterpretation of CBC data. Current Interpretive Data was last revised on 2017. Lymphocyte pct 24.3 % [facility] Comment: Interpretive Data Percent cell count reference ranges are not reported, since discordance with absolute values may lead to misinterpretation of CBC data. Current Interpretive Data was last revised on 2017. Monocyte pct 3.5 % [facility] Comment: Interpretive Data Percent cell count reference ranges are not reported, since discordance with absolute values may lead to misinterpretation of CBC data. Current Interpretive Data was last revised on 2017. Eosinophil pct 4.3 % [facility] Comment: Interpretive Data Percent cell count reference ranges are not reported, since discordance with absolute values may lead to misinterpretation of CBC data. Current Interpretive Data was last revised on 2017. Variant lymph pct 7.0(H) 0.0 - 0.0 % [facility] Blood 07/01/2024 12:2 1 PM MAINTENANCE WORKER SWIMMING POOL 07/01/2024 12:44 PM MAINTENANCE WORKER SWIMMING POOL us Nneka Marin MD LAB BLOOD ORDERABLES Final Re sult [facility] Department [place] [address] * Folate (07/01/2024 12:21 PM MAINTENANCE WORKER SWIMMING POOL) Folic acid >20.0 >=5.0 ng/mL Blood 07/01/2024 12:2 1 PM MAINTENANCE WORKER SWIMMING POOL 07/01/2024 12:26 PM MAINTENANCE WORKER SWIMMING POOL us Nneka Marin MD LAB BLOOD ORDERABLES Final Re sult Performing Organization Address City/[facility] Co de Phone Number [facility] Department [place] [address] * Vitamin B12 (07/01/2024 12:21 PM MAINTENANCE WORKER SWIMMING POOL) Vitamin B12 788 230 - 1,250 pg/mL Blood 07/01/2024 12:2 1 PM MAINTENANCE WORKER SWIMMING POOL 07/01/2024 12:26 PM MAINTENANCE WORKER SWIMMING POOL Nneka Marin MD LAB BLOOD ORDERABLES Final Re sult Performing Organization Address [facility] de Phone Number [facility] Department [place] [address] * Lipid panel (07/01/2024 12:21 PM MAINTENANCE WORKER SWIMMING POOL) Cholesterol 123 30 - 199 mg/dL Comment: [...] revised on 2017. Triglycerides 110 <=149 mg/dL [facility] Comment: Interpretive Data Ages < or [...] revised on 2017. HDL 45 >=40 mg/dL [facility] Comment: Interpretive Data Ages < or = [...] on 2017. LDL, calculated 58 <=129 mg/dL [facility] Comment: Interpretive Data Ages < or = 19 years Acceptable: <110 mg/dL Borderline high: 110-129 mg/dL High: >or= 130 mg/dL Ages > or = 20 years Optimal: <100 mg/dL Near optimal: 100-129 mg/dL Borderline high: 130-159 mg/dL High: >160 mg/dL Calculated using the Jimmy LDL-C estimating equation. This equation was implemented on 2023. Prior to this date LDL-C was estimated using the Friedewald equation. Literature References: 1. Expert Panel on Integrated Guidelines for Cardiovascular Health and Risk Reduction in Children and Adolescents. Pediatrics 2011;128:S213 2. NCEP Expert Panel. Circulation 2004;110:227 3. Jimmy Ayala et al. JUAN Cardiol. 2019August 27;5(5):540-548. doi: 10.1001/jamacardio.2020.0013 Current Interpretive Data was last revised on 2023. Non-HDL Cholesterol 78 mg/dL [facility] Comment: Interpretive Data Ages < or = [...] last revised on 2017. Chol/HDL ratio 3 [facility] Blood 07/01/2024 12:2 1 PM MAINTENANCE WORKER SWIMMING POOL 07/01/2024 12:26 PM MAINTENANCE WORKER SWIMMING POOL us Nneka Marin MD LAB BLOOD ORDERABLES Final Re sult [facility] Department [place] [address] * (ABNORMAL) Comprehensive metabolic panel (07/01/2024 12:21 PM MAINTENANCE WORKER SWIMMING POOL) Sodium 141 135 - 145 mmol/L Potassium, pl 3.8 3.3 - 4.9 mmol/L [facility] Chloride 104 97 - 110 mmol/L [facility] CO2 29 22 - 32 mmol/L [facility] Anion gap 8 2 - 15 mmol/L [facility] BUN 5(L) 6 - 25 mg/dL [facility] Creatinine 0.77 0.60 - 1.10 mg/dL [facility] Glucose 88 70 - 199 mg/dL [facility] Comment: Interpretive Data Fasting glucose >/= [...] 2022. Calcium 10.0 8.5 - 10.3 mg/dL [facility] Bilirubin, total 0.5 0.1 - 1.2 mg/dL [facility] Protein, pl 6.8 6.5 - 8.5 g/dL [facility] Albumin 4.1 3.5 - 5.0 g/dL [facility] Alk phos 82 40 - 130 Units/L [facility] ALT 16 7 - 45 Units/L [facility] AST 18 10 - 45 Units/L [facility] Blood 07/01/2024 12:2 1 PM MAINTENANCE WORKER SWIMMING POOL 07/01/2024 12:26 PM MAINTENANCE WORKER SWIMMING POOL us Nneka Marin MD LAB BLOOD ORDERABLES Final Re sult [facility] Organization Address City/State/ZIP Co de Phone Number WICHO [facility] Department [place] [address] * ECG 12 lead (07/01/2024 9:04 AM MAINTENANCE WORKER SWIMMING POOL) us Nneka Marin MD ECG ORDERABLES Edited Result - Final from Last 3 Months Insurance MEDICARE [facility] Address: [facility] [address] [place] [address] [facility] MEDICARE [facility] Address: [address] [address] [facility] Care Teams Marketing Database Consultant Relationship Specialty Start Date End Date Godwin Garcia PA [address] [place] [id number] PCP - General Physician Hydrotechnical Specialist 07/01/24
--- OUTSIDE RECORDS SUMMARY | 2024-08-20 07:37 | XMS_ITS ---
Author Organization Unknown Address [address] [place] [phone] Phone Care Team Providers Care Manager It Security Name Role Phone MARTHA Lopez Attending Unavailable NO PCP Primary Unavailable Immunization Immunization Date Status Additional [...] Date Code Code Syst em Sex Female Medications Medication Start Date End Date Route Frequency Dose Code Code System Medication Instructions Home Meds Aspirin 81MG Oral Tablet, Enteric Coated 07/16/2024 Unknown ORAL ONCE A DAY 81 MILLIGRAMS [id number] RxNorm TAKE 81 MILLIGRAMS ORAL ONCE A DAY Ativan 1MG Oral Tablet 07/16/2024 Unknown ORAL NEEDED 0.5 MILLIGRAMS [id number] RxNorm TAKE 0.5 MILLIGRAMS ORAL NEEDED Boniva 150MG Oral Tablet 07/16/2024 Unknown ORAL MONTHLY 150 MILLIGRAMS [id number] RxNorm TAKE 150 MILLIGRAMS ORAL MONTHLY Meloxicam 15MG Oral Tablet 07/16/2024 Unknown ORAL NEEDED DAILY 15 MILLIGRAMS 127553 RxNorm TAKE 15 MILLIGRAMS ORAL NEEDED DAILY Omeprazole 20 MG Oral Tablet, Delayed Release 07/16/2024 Unknown ORAL ONCE A DAY 20 MG RxNorm TAKE 20 MG ORAL ONCE A DAY Ondansetron 4MG Oral Tablet, Disintegrating 07/16/2024 Unknown ORAL NEEDED 3 TIMES A DAY 4 MILLIGRAMS [id number] RxNorm TAKE 4 MILLIGRAMS ORAL NEEDED 3 TIMES A DAY Strattera 80MG Oral Capsule 07/16/2024 Unknown ORAL ONCE A DAY 80 MILLIGRAMS [id number] RxNorm TAKE 80 MILLIGRAMS ORAL ONCE A DAY buPROPion HCl 300MG Oral Tablet, Extended Release, 24 HR 07/16/2024 Unknown ORAL ONCE A DAY 300 MILLIGRAMS [id number] RxNorm TAKE 300 MILLIGRAMS ORAL ONCE A DAY traZODone hydrochloride 100MG Oral Tablet 07/16/2024 Unknown ORAL AT BEDTIME 100 MILLIGRAMS [id number] RxNorm TAKE 100 MILLIGRAMS ORAL AT BEDTIME Hospital Discharge Instructions Should you have any questions prior to discharge, please contact a member of your healthcare team. If you have left the hospital and have any questions, please contact your primary care physician. Reason For Referral No Data Found Allergies and Adverse Reactions Allergy Substance Reaction Severity Start Date Concern Status Co de Code System CODEINE Active 2670 RxNorm HYDROCODONE Active 5489 RxNorm No Known Allergies Active [id number] SNO MED-CT Plan of Treatment Bone Density Dexa 02/14/2024 Colonoscopy 07/16/2024 Encounters Encounter Diagnosis Start Date Code Code Sys tem Encounter for screening for malignant neoplasm of colo n 06/15/2024 SNOMED-CT Personal Care Team Section Performer Name Performer Role Active Date Inactive BAO Cardoso PCP - Primary care physician 2024-07-16
--- OUTSIDE RECORDS SUMMARY | 2024-08-20 07:37 | XMS_ITS | Data Portability ---
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 Lab None recorded. Referral None recorded. Procedures None recorded. Surgeries None recorded. Imaging None recorded. Medication Orders metronidazo le 0.75 % topical cream 2024 025 [email or web address] [id number], [address] [place], [address], 11:16:12 Patient TargetsNo targets recorded. Patient InstructionsNo instructions recorded. Reason for Referral None Reported. Problems Name Problem SNOMED Code Status Onset Date Resolution Date Notes Provider Name and Address Organization Details Recorded Time Rosacea [id number] Active 025 Sandra Hawthorne [facility] 06/09/2024 10:03:54 Problem Notes None recorded. Medical Equipment None Reported. Allergies Allergen ID Allergen Name Allergen Category Reaction Reaction Severity Criticality Documentation Date Start Date Code Code System Note Provider Name and Address Organization Details Recorded Time 354207 codeine medicatio n Not available Not available Not available 05/27/20232007 2670 RxNorm Not Available Not Available Not Available 804355 acetamino phen / hydrocodo ne medicatio n Not available Not available Not available 05/27/20232007 76577 2 RxNorm Not Available Not Available Not Available 375005 isosorbid e dinitrate medicatio n Not available Not available Not available 05/27/20232019 6058 RxNorm Not Available Not Available Not Available Medications Name Sig Start Date Stop Date Status Note LastModified by Organization Details LastModified Time ondansetron HCl 4 mg tablet TAKE 1 TABLET BY MOUTH THREE TIMES A DAY NEEDED active Not Available Not Available No t Available isosorbide mononitrate ER 30 mg tablet,exte nded release 24 hr TAKE 1 TABLET BY MOUTH EVERY DAY 06/24 completed Not Available Not Available Not Available cephalexin 500 mg capsule TAKE 1 CAPSULE BY MOUTH FOUR TIMES A DAY FOR 7 DAYS 06/24 completed Not Available Not Available Not Available erythromyci n 5 mg/gram (0.5 %) eye ointment APPLY A SMALL AMOUNT ON EYELID TWICE A DAY DIRECTED 06/24 completed Not Available Not Available Not Available trazodone 150 mg tablet TAKE 1 TABLET AT BEDTIME active Not Available Not Available No t Available metronidazo le 0.75 % topical cream APPLY A THIN LAYER TO THE AFFECTED AREA(S) BY TOPICAL ROUTE DAILY IN THE A.M. active Not Available Not Available No t Available omeprazole 20 mg capsule,del ayed release TAKE 1 CAPSULE DAILY active Not Available Not Available No t Available hydrochloro thiazide 25 mg tablet TAKE 1 TABLET DAILY 06/24 completed Not Available Not Available Not Available lorazepam 1 mg tablet 1 TABLET BY MOUTH 2 TIMES A DAY NEEDED active Not Available Not Available No t Available metformin ER 500 mg tablet,exte nded release 24 hr TAKE 1 TABLET EVERY EVENING active Not Available Not Available No t Available fludrocorti sone 0.1 mg tablet TAKE 1 TABLET BY MOUTH EVERY DAY active Not Available Not Available No t Available cyclobenzap rine 5 mg tablet TAKE 1 TABLET BY MOUTH THREE TIMES A DAY NEEDED active Not Available Not Available No t Available bupropion HCl XL 300 mg 24 hr tablet, extended release TAKE 1 TABLET DAILY active Not Available Not Available No t Available ibandronate 150 mg tablet TAKE 1 TABLET BY MOUTH MONTHLY 06/24 completed Not Available Not Available Not Available atomoxetine 80 mg capsule TAKE 1 CAPSULE DAILY active Not Available Not Available No t Available hydrochloro thiazide 12.5 mg tablet TAKE 1 TABLET BY MOUTH EVERY DAY 06/24 completed Not Available Not Available Not Available Ozempic 1 mg/dose (4 mg/3 mL) subcutaneou s pen injector INJECT 1 MG UNDER SKIN WEEKLY active Not Available Not Available No t Available Ozempic 2 mg/dose (8 mg/3 mL) subcutaneou s pen injector INJECT 2 MG SUBCUTANE OUSLY EVERY WEEK active Not Available Not Available No t Available Lagevrio 200 mg capsule (EUA) TAKE 4 CAPSULES BY MOUTH TWICE A DAY active Not Available Not Available No t Available Ozempic 0.25 mg or 0.5 mg (2 mg/3 mL) subcutaneou s pen injector 0.25 MILLIGRAM EVERY WEEK FOR 4 WEEKS THEN INCREASE TO 0.5 MG EVERY WEEK active Not Available Not Available No t Available Vitals None Recorded Social History Question Answer Notes LastModified by Organizat ion Details LastModified Time Tobacco Smoking Status Former Smoker Not Available Health Note 06/02/2024 20:03:39 Do You Have An Advance Directive? Yes [email or web address] Information not available 06/02/2024 What Is Your Level Of Alcohol Consumption? Occasional [email or web address] Information not available 06/02/2024 How Many Times Per Week Do You Consume Alcohol? Less Than 1 Time Per Week [email or web address] Information not available 06/02/2024 What Is Your Level Of Caffeine Consumption? Occasional [email or web address] Information not available 06/02/2024 What Is Your Code Status? Full Code [email or web address] Information not available 06/02/2024 Are You Currently Employed? Yes [email or web address] Information not available 06/02/2024 What Is Your Occupation? [employer] - [employer] [email or web address] Information not available 06/02/2024 How Many Times Per Week Do You Exercise? 1-2 Times Per Week [email or web address] Information not available 06/02/2024 When Did You Quit Smoking? 2009 [email or web address] Information not available 06/02/2024 What Was The Date Of Your Most Recent Tobacco Screening? 06/09/2024 [email or web address] Information not available 06/02/2024 What Is Your Relationship Status? [email or web address] Information not available 06/02/2024 Do You Use Any Illicit Or Recreational Drugs? No [email or web address] Information not available 06/02/2024 Sex: Female Functional Status Question Answer Note LastModified by Organizat ion Details LastModified Time What is your exercise level? Occasional [email or web address] Information not available 06/02/2024 Mental Status None recorded. Family History Relationship Description Onset Age of this Age Resolved Age Notes LastModified by Organization Details LastModified Time Mother Heart disease [email or web address] Not available 2024 20:03:38 Father Heart disease [email or web address] Not available 2024 20:03:38 Sister Heart disease [email or web address] Not available 2024 20:03:38 Brother Heart disease [email or web address] Not available 2024 20:03:38 Medical History Condition Response Anxiety Disorder N Diabetes N Attention-deficit Hyperactivity Disorder Y Bleeding Disorder N High Blood Pressure N Arthritis N Hyperlipidemia N Cancer N Stroke N Thyroid Problems N Asthma N Depression N COPD N Anemia N Seizures N Heart Disease N Fibromyalgia N Osteoporosis N Kidney Disease N Gynecological HistoryNo gynecological history recorded. Obstetrics History GPAL:G 0 P 0 0 0 0 Past Encounters Encounter ID Performer Location Encounter Start Date Encounter Closed Date Diagnosis/Indication Diagnosis SNOMED-CT Code Diagnosis ICD10 Code Diagnosis Note [id number] Diana Salmon MD [facility] [place] [address] [facility],[address] [place] [id number] 06/09/2024 09:16:56 06/09/2024 10:13:29 Rosacea 935396140 L71.9 {{Acne Ros acea* Carly sma Seborr heic dermatitis Psoriasis Eczema Ur ticaria On ychomycosi s Stasis dermatitis Keratosis pilaris Fo lliculitis Lichen Planus Wade aumburg's Purpura}}. {{Stable I mproving P rogressing * Resolved }} on current treatment regimen of Tretinoin qhs. Prescribed metro cream for a.m. and advised pt to use glycolic acid from [facility]. If the condition progresses , flares, or changes, or if patient encounters problems with medication s, patient was asked to call the office. [id number] Diana Salmon MD [facility] [place] [address] [place] [address], [place] [address] 06/24/2024 09:59:14 06/24/2024 11:37:50 Procedure [id number] Z41.1 Treatment options were discussed. Chemical peels were reviewed and side effects including discomfort , erythema, desquamati on, edema, hyperpigme ntation, hypopigmen tation, scarring, and infection were discussed. Patient states understand ing and agrees to proceed. The face was washed and then acetone followed by isopropyl alcohol applied to entire face. Vaseline was applied to the corners of the mouth and eyes. Using a folded wrung out gauze, Jessner's solution was applied evenly to the entire face. After entire reaction was complete and burning subsided, trichloroa cetic acid {{_ 25#}} % was applied evenly to the entire face. Care was taken to not overlap, no applicatio n was done within the orbital rim, and the applicatio n was feathered at the jawline. {{Mild Mod erate* Sig nificant}} erythema was noted and {{patchy 1 +* 2+}} frosting was noted following applicatio n. Patient tolerated procedure well. Applied sunscreen prior to leaving office. Wound care discussed and strict photoprote ction was encouraged . Health Concerns Section Related Observation LastModified by Organization Detai ls LastModified Time None Recorded Concern Status LastModified by Organization Details LastModified Time None Recorded Advance Directives Directive Y: Payers Encounter Date Sequence Insurance Name Policy Number Policy Zavaleta Covered Member ID Zavaleta Member ID Guarantor Name 06/09/2024 1 [place] Shadia Mays [id number] Shadia Mays Notes Date Note Type Note Provider Name and Address Organization Details Recorded Time 06/09/2024 text/html EPV- Refer to Dermatology Patient History form in the EHR that has been reviewed and signed. Please refer to this form for Past Medical History, Family History, and additional Social History Patient presents today for a recheck of acne. Date last seen for acne: {{ 12/30/2019#}} Current prescription medications used and frequency: {{ tretinoin#}} Areas of involvement: {{ face#}} Current over the counter products used: {{ none#}} Problems with acne medications: {{ no#}} Other concerns: {{ no#}} Diana Salmon MD [address] [facility], [place], [address], [facility] 06/14/2024 23:50:38 OBGyn Episode No OBEpisode recorded.
== END 2024-08-20 07:29 | disposition home or self-care (01) ==
LOC: CHSIMG 07:34
PROVIDERS: PCP Physician Assistant; Visit Provider Physician Assistant
DX: Z12.31 Encounter for screening mammogram for malignant neoplasm of breast (principal); R91.8 Other nonspecific abnormal finding of lung field
CPT/HCPCS: 77063; 77067

== ENCOUNTER 2024-09-07 09:55 | Outpatient (CLI) | payer MEDICARE, OTHER, SELFPAY ==
--- NOTE | ~2024-09-07 | MMUS_ITS ---
EXAMINATION: MM diagnostic linnea LT w manuel, US breast LT limited HISTORY: Left breast asymmetry TECHNIQUE: Additional 3-D tomosynthesis images of the left breast were performed and synthetic 2-D im ages were generated. CAD analysis was submitted and interpreted. High resolution limited left breast ultrasound was performed. COMPARISON: 08/20/2024, 08/05/2023, 05/15/2022 BREAST PARENCHYMAL COMPOSITION:Not Dense. There are scattered areas of fibroglandular density. FINDINGS: MAMMOGRAPHIC FINDINGS: Spot compression views demonstrate partial effacement of the asymmetric density at the upper, outer l eft breast. Appearance is relatively similar to prior exams. ULTRASOUND: No sonographic abnormality seen in the upper, outer left breast. No solid or cystic mass seen. IMPRESSION: Findings most compatible with asymmetric fibroglandular tissue the upper, outer left breast. No susp icious lesion evident. BI-RADS Category 2: Benign finding(s). Reviewed, dictated and finalized at location M. IMPRESSION: Findings most compatible with asymmetric fibroglandular tissue the upper, oute r left breast. No suspicious lesion evident. BI-RADS Category 2: Benign finding(s).
--- OUTSIDE RECORDS SUMMARY | 2024-09-07 10:02 | XMS_ITS | Referral Summary ---
Author Organization [facility] [place] [address] Address [address] [place] [id number] Care Team Providers Care Job Counselor Name Role Phone Godwin Garcia Primary Care Provider Encounters Date Type Department Care Team Description 08/25/2024 Orders Only [facility] Cardiology [address] [facility] 8th [place] [address] [place] [address] Nneka Marin MD Abnormal CBC (Primary Dx) 08/10/2024 10:00 AM CDT Procedure visit [facility] Neurological Testing [address] [facility] 6th [place] [address] [place] [address] SOB (shortness of breath); Coronary artery calcification; Orthostatic hypotension; Dyslipidemia 07/14/2024 Results Follow-Up [facility] Cardiology [address] [facility] 8th [place] [address] [place] [address] Nneka Marin MD 07/13/2024 1:34 PM CDT - 07/13/2024 11:59 PM CDT Hospital Encounter [facility] Cardiac Diagnostic Lab [address] [place] [address] SOB (shortness of breath); Hypotension, unspecified hypotension type; Coronary artery disease involving pilot point coronary artery of pilot point heart, unspecified whether angina present; Orthostatic syncope; Dyslipidemia Discharge Disposition: Discharge to home or self care 07/10/2024 Telephone [facility] Cardiology [address] [place] [address] 8th [place] [address] [place] [address] Nneka Marin MD 07/01/2024 12:10 PM TUBING MACHINE TENDER Lab [facility]) [address] [place] [phone] SOB (shortness of breath); Coronary artery disease involving pilot point coronary artery of pilot point heart, unspecified whether angina present; Dyslipidemia; Family history of premature CAD; Hypotension, unspecified hypotension type; Orthostatic syncope 07/01/2024 Orders Only [facility] Cardiology [address] [place] [address] [place] [address] [place] [address] Nneka Marin MD Orthostatic syncope (Primary Dx) 07/01/2024 Results Follow-Up [facility] Cardiology [address] [place] [address] [place] [address] [place] [address] Nneka Marin MD 07/01/2024 Orders Only [address] [place] [address] [place] [address] Nneka Marin MD 07/01/2024 9:00 AM TUBING MACHINE TENDER Office Visit [facility] Cardiology [address] [place] [address] [place] [address] [place] [address] Nneka Marin MD Orthostatic hypotension (Primary Dx); [...] on file Legal Sex Female 12:39 PM TUBING MACHINE TENDER Gender Identity Not on file Sexual Orientation Not on file Last Filed Vital Signs Vital Sign Reading Time Taken Comments Blood Pressure 120/75 07/13/2024 3:09 PM CDT Pulse 103 07/13/2024 3:09 PM CDT Temperature 37.1 C (98.8 F) 09/14/2023 10:15 AM CDT Respiratory Rate 16 09/14/2023 10:15 AM CDT Oxygen Saturation 100% 07/01/2024 9:05 AM TUBING MACHINE TENDER Inhaled Oxygen Concentration - - Weight 70.3 [...] unspecified hypotension type Coronary artery disease involving pilot point coronary artery of pilot point heart, unspecified whether angina present Orthostatic syncope Dyslipidemia EGFR Routine 07/01/2024 12:21 PM TUBING MACHINE TENDER SOB (shortness of breath) Hypotension, unspecified hypotension type Coronary artery disease involving pilot point coronary artery of pilot [place] heart, unspecified whether angina present Orthostatic syncope Dyslipidemia MANUAL DIFFERENTIAL Routine 07/01/2024 1 2:21 PM TUBING MACHINE TENDER SOB (shortness of breath) Hypotension, unspecified hypotension type Coronary artery disease involving pilot point coronary artery of pilot point heart, unspecified whether angina present Orthostatic syncope Dyslipidemia CBC WITH AUTO DIFFERENTIAL Routine 07/01/2024 12:21 PM TUBING MACHINE TENDER SOB (shortness of breath) Hypotension, unspecified hypotension type Coronary artery disease involving pilot point coronary artery of pilot point heart, unspecified whether angina present Orthostatic syncope Dyslipidemia COMPREHENSIVE METABOLIC PANEL Routine 07/01/2024 12:21 PM TUBING MACHINE TENDER SOB (shortness of breath) Hypotension, unspecified hypotension type Coronary artery disease involving pilot point coronary artery of pilot point heart, unspecified whether angina present Orthostatic syncope Dyslipidemia LIPID PANEL Routine 07/01/2024 12:21 PM TUBING MACHINE TENDER SOB (shortness of breath) Hypotension, unspecified hypotension type Coronary artery disease involving pilot point coronary artery of pilot point heart, unspecified whether angina present Orthostatic syncope Dyslipidemia TROPONIN I HIGH-SENSITIVITY Routine 07/01/2024 12:21 PM TUBING MACHINE TENDER SOB (shortness of breath) Hypotension, unspecified hypotension type Coronary artery disease involving pilot point coronary artery of pilot point heart, unspecified whether angina present Orthostatic syncope Dyslipidemia PRO B-TYPE NATRIURETIC PEPTIDE Routine 07/01/2024 12:21 PM TUBING MACHINE TENDER SOB (shortness of breath) Hypotension, unspecified hypotension type Coronary artery disease involving pilot point coronary artery of pilot point heart, unspecified whether angina present Orthostatic syncope Dyslipidemia VITAMIN B12 Routine 07/01/2024 12:21 PM TUBING MACHINE TENDER SOB (shortness of breath) Hypotension, unspecified hypotension type Coronary artery disease involving pilot point coronary artery of pilot point heart, unspecified whether angina present Orthostatic syncope Dyslipidemia FOLATE Routine 07/01/2024 12:21 PM TUBING MACHINE TENDER SOB (shortness of breath) Hypotension, unspecified hypotension type Coronary artery disease involving pilot point coronary artery of pilot point heart, unspecified whether angina present Orthostatic syncope Dyslipidemia LIPOPROTEIN A (LPA) Routine 07/01/2024 1 2:21 PM TUBING MACHINE TENDER SOB (shortness of breath) Coronary artery disease involving pilot point coronary artery of pilot point heart, unspecified whether angina present Dyslipidemia Family history of premature CAD ECG 12-LEAD Routine 07/01/2024 9:04 AM TUBING MACHINE TENDER SOB (shortness of breath) Coronary artery calcification from Last 3 Months Results * STRESS ECHO PHARMACOLOGIC W DOPPLER/CF W CONTRAST (07/13/2024 3:09 PM CDT) Anatomical Region Laterality Modality Ultrasound 07/13/2024 1:45 PM CDT Narrative 07/13/2024 4:55 PM CDT [facility] Card[place] [address] Pharmacologic Stress Transthoracic Echocardiographic Report Patient Name: SHADIA ADAMS J : 1960 (64y 1m) Gender: F Study Date: 07/13/2024 01:45:00 PM Ht(Inch): 64 Wt(Lb): 155.01 BSA: 1.78 Corporate Sales Manager: Sandra Johnson [facility] Location: [facility] Order Provider: BRANTPRISCILANNEKA BMI: 26.6 Ref Provider: NNEKA MARIN - [...] Hypotension, unspecified, I25.10 Atherosclerotic heart disease of pilot point coronary artery without angina pectoris, I95.1 Orthostatic [...] Procedure Note Bladimir Hall MD - 07/13/2024 [facility] [place] [address] Pharmacologic Stress Transthoracic Echocardiographic Report Patient Name: SHADIA PLASCENCIA J : 1960 (64y 1m) Gender: F Study Date: 07/13/2024 01:45:00 PM Ht(Inch): 64 Wt(Lb): 155.01 BSA: 1.78 Corporate Sales Manager: Sandra Johnson [facility] Location: [facility] Order Provider:NNEKA MARIN BMI: 26.6 [...] I95.9 Hypotension, unspecified, I25.10Atherosclerotic heart disease of pilot point coronary artery without angina pectoris, I95.1Orthostatic hypotension, [...] [ 1.00 - 2.00 ] MV Decel Hscq841.56 msec [ 104.00 - 258.00 ] Asc [...] * Troponin I high-sensitivity (07/01/2024 12:21 PM TUBING MACHINE TENDER) [facility] Trop I hs <4 <=17 ng/L Comment: Interpretive Data For further hscTnI resources including the diagnostic algorithm and an aid in interpretation, copy and paste this link: https://bjhlab.testcatalog.org/show/[email or web address]-1 Current Interpretive Data last revised 2019. Blood 07/01/2024 12:2 1 PM TUBING MACHINE TENDER 07/01/2024 12:26 PM TUBING MACHINE TENDER us Nneka Marin MD LAB BLOOD ORDERABLES Final Re sult [facility] Department [place] [address] * eGFR (07/01/2024 12:21 PM TUBING MACHINE TENDER) eGFR 86 >=60 mL/min/1. 73 m2 Comment: [...] reviewed 2021. Blood 07/01/2024 12:2 1 PM TUBING MACHINE TENDER 07/01/2024 12:38 PM TUBING MACHINE TENDER us Nneka Marin MD LAB BLOOD ORDERABLES Final Re sult [facility] [place] [address] * Pro B-type natriuretic peptide (07/01/2024 12:21 PM TUBING MACHINE TENDER) NT-proBNP 137 <=300 pg/mL Comment: Interpretive Comments: [...] Date: 2017. Blood 07/01/2024 12:2 1 PM TUBING MACHINE TENDER 07/01/2024 12:26 PM TUBING MACHINE TENDER us Nneka Marin MD LAB BLOOD ORDERABLES Final Re sult [facility] [place] [address] * (ABNORMAL) CBC with auto differential (07/01/2024 12:21 PM TUBING MACHINE TENDER) WBC 5.4 3.8 - 9.9 K/cumm Hgb 11.9 11.9 - 15.5 g/dL [facility] Hct 34.6(L) 35.6 - 45.5 % [facility] Plt 170 150 - 400 K/cumm [facility] MPV 10.7 9.1 - 12.3 fL [facility] RBC 3.76(L) 3.90 - 5.20 M/cumm [facility] MCV 92.0 81.3 - 96.4 fL [facility] MCH 31.6 27.1 - 33.3 pg [facility] MCHC 34.4 32.3 - 35.7 g/dL [facility] RDW CV 12.4 11.1 - 14.9 % [facility] RDW SD 41.7 35.7 - 48.1 fL [facility] NRBC abs 0.00 0.00 - 0.01 K/cumm [facility] Blood 07/01/2024 12:2 1 PM TUBING MACHINE TENDER 07/01/2024 12:26 PM TUBING MACHINE TENDER Nneka Marin MD LAB BLOOD ORDERABLES Final Re sult Performing Organization Address [facility] de Phone Number [facility] [place] [address] * Lipoprotein a (LPa) (07/01/2024 12:21 PM TUBING MACHINE TENDER) [facility] Lipoprotein A <7 <75 nmol/L [facility] Comment: ADDITIONAL INFORMATION Please notice that Lp(a) values are reported in molar units (nmol/L). These units are recommended by professional society guidelines and expert opinion statements. Measured results and risk thresholds are higher than those generated using mass units (mg/dL). Cardiovascular risk increases starting at 75 nmol/L. Lp(a) >=125 nmol/L is considered a risk enhancing factor by the [place] [employer]. This test has been modified from the bottom ironer's instructions. Its performance characteristics were determined by [facility] in a manner consistent with CLIA requirements. This test has not been cleared or approved by the U.S. Food and Drug Administration. Test Performed by: [place] [address] Plating Tank Operator Apprentice: Turner Lora Ph.D.; CLIA# [id number] Blood 07/01/2024 12:2 1 PM TUBING MACHINE TENDER 07/01/2024 2:14 PM TUBING MACHINE TENDER Nneka Marin MD LAB BLOOD ORDERABLES Final Re sult Performing Organization Address [facility] Co de Phone Number [facility] [place] [address] [facility] * (ABNORMAL) Manual Differential (07/01/2024 12:21 PM TUBING MACHINE TENDER) Differential Manual Cells Counted 115 [facility] Neutrophil abs 3.3 1.5 - 6.5 K/cumm [facility] Imm gran abs 0.0 0.0 - 0.1 K/cumm [facility] Lymphocyte abs 1.7 0.8 - 3.3 K/cumm [facility] Monocyte abs 0.2 0.2 - 0.8 K/cumm [facility] Eosinophil abs 0.2 0.0 - 0.5 K/cumm [facility] Neutrophil pct 60.9 % [facility] Comment: Interpretive Data Percent cell count reference ranges are not reported, since discordance with absolute values may lead to misinterpretation of CBC data. Current Interpretive Data was last revised on 2017. Lymphocyte pct 24.3 % [facility] Comment: Interpretive Data Percent cell count reference ranges are not reported, since discordance with absolute values may lead to misinterpretation of CBC data. Current Interpretive Data was last revised on 2017. Monocyte pct 3.5 % [facility] Comment: Interpretive Data Percent cell count reference ranges are not reported, since discordance with absolute values may lead to misinterpretation of CBC data. Current Interpretive Data was last revised on 2017. Eosinophil pct 4.3 % [facility] Comment: Interpretive Data Percent cell count reference ranges are not reported, since discordance with absolute values may lead to misinterpretation of CBC data. Current Interpretive Data was last revised on 2017. Variant lymph pct 7.0(H) 0.0 - 0.0 % [facility] Blood 07/01/2024 12:2 1 PM TUBING MACHINE TENDER 07/01/2024 12:44 PM TUBING MACHINE TENDER us Nneka Marin MD LAB BLOOD ORDERABLES Final Re sult [facility] Department [place] [address] * Folate (07/01/2024 12:21 PM TUBING MACHINE TENDER) Folic acid >20.0 >=5.0 ng/mL Blood 07/01/2024 12:2 1 PM TUBING MACHINE TENDER 07/01/2024 12:26 PM TUBING MACHINE TENDER us Nneka Marin MD LAB BLOOD ORDERABLES Final Re sult Performing Organization Address [facility] Co de Phone Number [facility] [place] [address] * Vitamin B12 (07/01/2024 12:21 PM TUBING MACHINE TENDER) Vitamin B12 788 230 - 1,250 pg/mL Blood 07/01/2024 12:2 1 PM TUBING MACHINE TENDER 07/01/2024 12:26 PM TUBING MACHINE TENDER us Nneka Marin MD LAB BLOOD ORDERABLES Final Re sult Performing Organization Address [facility] de Phone Number [facility] [place] [address] * Lipid panel (07/01/2024 12:21 PM TUBING MACHINE TENDER) Pathologist [facility] Cholesterol 123 30 - 199 mg/dL Comment: [...] revised on 2017. Triglycerides 110 <=149 mg/dL [facility] Comment: Interpretive Data Ages < [...] on 2017. HDL 45 >=40 mg/dL [facility] Comment: Interpretive Data Ages < [...] 2017. LDL, calculated 58 <=129 mg/dL [facility] Comment: Interpretive Data Ages < [...] 3. Jimmy Ayala et al. JUAN Cardiol. 2020 August 27;5(5):540-548. doi: 10.1001/[email or web address] Current Interpretive Data was last revised on 2023. Non-HDL Cholesterol 78 mg/dL [facility] Comment: Interpretive Data Ages < [...] last revised on 2017. Chol/HDL ratio 3 [facility] Blood 07/01/2024 12:2 1 PM TUBING MACHINE TENDER 07/01/2024 12:26 PM TUBING MACHINE TENDER us Nneka Marin MD LAB BLOOD ORDERABLES Final Re sult [facility] Department [place] [address] * (ABNORMAL) Comprehensive metabolic panel (07/01/2024 12:21 PM TUBING MACHINE TENDER) Sodium 141 135 - 145 mmol/L Potassium, pl 3.8 3.3 - 4.9 mmol/L [facility] Chloride 104 97 - 110 mmol/L [facility] CO2 29 22 - 32 mmol/L [facility] Anion gap 8 2 - 15 mmol/L [facility] BUN 5(L) 6 - 25 mg/dL [facility] Creatinine 0.77 0.60 - 1.10 mg/dL [facility] Glucose 88 70 - 199 mg/dL [facility] Comment: Interpretive Data Fasting glucose >/= 126 [...] 2022. Calcium 10.0 8.5 - 10.3 mg/dL [facility] Bilirubin, total 0.5 0.1 - 1.2 mg/dL [facility] Protein, pl 6.8 6.5 - 8.5 g/dL [facility] Albumin 4.1 3.5 - 5.0 g/dL [facility] Alk phos 82 40 - 130 Units/L [facility] ALT 16 7 - 45 Units/L [facility] AST 18 10 - 45 Units/L [facility] Blood 07/01/2024 12:2 1 PM TUBING MACHINE TENDER 07/01/2024 12:26 PM TUBING MACHINE TENDER us Nneka Marin MD LAB BLOOD ORDERABLES Final [facility] Organization Address City/State/ZIP Co de Phone Number [facility] [place] [address] * ECG 12 lead (07/01/2024 9:04 AM TUBING MACHINE TENDER) us Nneka Marin MD ECG ORDERABLES Edited Result - Final from Last 3 Months Insurance [facility] Address: [address] [address] [place] Care Teams Job Counselor Relationship Specialty Start Date End Date Godwin Garcia PA [address] [place] [id number] PCP - General Physician Filling And Packing Supervisor 07/01/24
--- OUTSIDE RECORDS SUMMARY | 2024-09-07 10:02 | XMS_ITS | Encounter Summary ---
Author Organization [facility] Address [address] [place] [address] Phone Care Team Providers Care State Appellate Clerk Name Role Phone Godwin Garcia Primary Care Provider Encounter Details Date Type Department Care Team (Late st Contact Info) Description 07/14/2024 Results Follow-Up [facility] Cardiology [address] [facility] Advanced Medicine 8th [place] [address] [place] [address] Mikael Lubin MD [address] [facility] [address] [place], [place] [id number] Social History Tobacco Use Types Packs/Day Years [...] on file Legal Sex 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
--- OUTSIDE RECORDS SUMMARY | 2024-09-07 10:02 | XMS_ITS | Clinical Summary ---
Author Organization [facility] [address] Address [address] [place] [phone] Care Team Providers Care Methodologist Name Role Phone Godwin Garcia Primary Care [...] Department Care Team Description 08/25/[address] [facility] Cardiology [facility] 8th [place] [address] [place] [address] Nneka Marin MD Abnormal CBC (Primary Dx) 08/10/2024 10:00 AM CDT Procedure visit [facility] Neurological Testing [facility] 6th [place] [address] [place] [address] SOB (shortness of breath); Coronary artery calcification; Orthostatic hypotension; Dyslipidemia 07/14/2024 Results Follow-Up [facility] Cardiology [address] [place] [address] 8th [place] [address] [place] [address] Nneka Marin MD 07/13/2024 1:34 PM CDT - 07/13/2024 11:59 PM CDT Hospital Encounter [facility] Cardiac Diagnostic Lab [address] [place] [address] SOB (shortness of breath); Hypotension, unspecified hypotension type; Coronary artery disease involving qawalangin coronary artery of qawalangin heart, unspecified whether angina present; Orthostatic syncope; Dyslipidemia Discharge Disposition: Discharge to home or self care 07/10/[address] [facility] Cardiology [facility] 8th [place] [address] [place] [address] Nneka Marin MD 07/01/2024 12:10 PM HOP SORTER Lab [facility] ([facility]) [address] [place] [address] SOB (shortness of breath); Coronary artery disease involving qawalangin coronary artery of qawalangin heart, unspecified whether angina present; Dyslipidemia; Family history of premature CAD; Hypotension, unspecified hypotension type; Orthostatic syncope 07/01/2024 9:00 AM HOP SORTER Office Visit [facility] Cardiology [address] [place] [address] 8th [place] [address] [place] [address] Nneka Marin MD Orthostatic hypotension (Primary Dx); SOB (shortness of breath); Coronary artery calcification; Dyslipidemia; Family history of premature CAD 07/01/2024 Orders Only [address] 8th [place] [address] [place] [address] Nneka Marin MD Orthostatic syncope (Primary Dx) 07/01/2024 Results Follow-Up [address] 8th [place] [address] [place] [address] Nneka Marin MD 07/01/2024 Orders Only [address] 8th [place] [address] [place] [address] Nneka Marin MD from Last 3 Months [...] on file Legal Sex Female 12:39 PM HOP SORTER Gender Identity Not on file Sexual Orientation Not on file Obstetrics History Last Filed Vital Signs Vital Sign Reading Time Taken Comments Blood Pressure 120/75 07/13/2024 3:09 PM CDT Pulse 103 07/13/2024 3:09 PM CDT Temperature 37.1 C (98.8 F) 09/14/2023 10:15 AM CDT Respiratory Rate 16 09/14/2023 10:15 AM CDT Oxygen Saturation 100% 07/01/2024 9:05 AM HOP SORTER Inhaled Oxygen Concentration - - Weight 70.3 [...] unspecified hypotension type Coronary artery disease involving qawalangin coronary artery of qawalangin heart, unspecified whether angina present Orthostatic syncope Dyslipidemia EGFR Routine 07/01/2024 12:21 PM HOP SORTER SOB (shortness of breath) Hypotension, unspecified hypotension type Coronary artery disease involving qawalangin coronary artery of qawalangin heart, unspecified whether angina present Orthostatic syncope Dyslipidemia MANUAL DIFFERENTIAL Routine 07/01/2024 1 2:21 PM HOP SORTER SOB (shortness of breath) Hypotension, unspecified hypotension type Coronary artery disease involving qawalangin coronary artery of qawalangin heart, unspecified whether angina present Orthostatic syncope Dyslipidemia CBC WITH AUTO DIFFERENTIAL Routine 07/01/2024 12:21 PM HOP SORTER SOB (shortness of breath) Hypotension, unspecified hypotension type Coronary artery disease involving qawalangin coronary artery of qawalangin heart, unspecified whether angina present Orthostatic syncope Dyslipidemia COMPREHENSIVE METABOLIC PANEL Routine 07/01/2024 12:21 PM HOP SORTER SOB (shortness of breath) Hypotension, unspecified hypotension type Coronary artery disease involving qawalangin coronary artery of qawalangin heart, unspecified whether angina present Orthostatic syncope Dyslipidemia LIPID PANEL Routine 07/01/2024 12:21 PM HOP SORTER SOB (shortness of breath) Hypotension, unspecified hypotension type Coronary artery disease involving qawalangin coronary artery of qawalangin heart, unspecified whether angina present Orthostatic syncope Dyslipidemia TROPONIN I HIGH-SENSITIVITY Routine 07/01/2024 12:21 PM HOP SORTER SOB (shortness of breath) Hypotension, unspecified hypotension type Coronary artery disease involving qawalangin coronary artery of qawalangin heart, unspecified whether angina present Orthostatic syncope Dyslipidemia PRO B-TYPE NATRIURETIC PEPTIDE Routine 07/01/2024 12:21 PM HOP SORTER SOB (shortness of breath) Hypotension, unspecified hypotension type Coronary artery disease involving qawalangin coronary artery of qawalangin heart, unspecified whether angina present Orthostatic syncope Dyslipidemia VITAMIN B12 Routine 07/01/2024 12:21 PM HOP SORTER SOB (shortness of breath) Hypotension, unspecified hypotension type Coronary artery disease involving qawalangin coronary artery of qawalangin heart, unspecified whether angina present Orthostatic syncope Dyslipidemia FOLATE Routine 07/01/2024 12:21 PM HOP SORTER SOB (shortness of breath) Hypotension, unspecified hypotension type Coronary artery disease involving qawalangin coronary artery of qawalangin heart, unspecified whether angina present Orthostatic syncope Dyslipidemia LIPOPROTEIN A (LPA) Routine 07/01/2024 1 2:21 PM HOP SORTER SOB (shortness of breath) Coronary artery disease involving qawalangin coronary artery of qawalangin heart, unspecified whether angina present Dyslipidemia Family history of premature CAD ECG 12-LEAD Routine 07/01/2024 9:04 AM HOP SORTER SOB (shortness of breath) Coronary artery calcification from Last 3 Months Results * STRESS ECHO PHARMACOLOGIC W DOPPLER/CF W CONTRAST (07/13/2024 3:09 PM CDT) Anatomical Region Laterality Modality Ultrasound 07/13/2024 1:45 PM CDT Narrative 07/13/2024 4:55 PM CDT [facility] [place] [address] Pharmacologic Stress Transthoracic Echocardiographic Report Patient Name: SHADIA PLASCENCIA J : 1960 (64y 1m) Gender: F Study Date: 07/13/2024 01:45:00 PM Ht(Inch): 64 Wt(Lb): 155.01 BSA: 1.78 Energy Auditor: Sandra Johnson RD Location: [facility] Order Provider: NNEKA MARIN BMI: [...] Hypotension, unspecified, I25.10 Atherosclerotic heart disease of qawalangin coronary artery without angina pectoris, I95.1 Orthostatic [...] Procedure Note Bladimir Hall MD - 07/13/2024 [facility] [place] [address] Pharmacologic Stress Transthoracic Echocardiographic Report Patient Name: SHADIA PLASCENCIA J : 1960 (64y 1m) Gender: F Study Date: 07/13/2024 01:45:00 PM Ht(Inch): 64 Wt(Lb): 155.01 BSA: 1.78 Energy Auditor: Sandra Johnson [facility] Location: [facility] Order Provider:NNEKA MARIN BMI: 26.6 [...] I95.9 Hypotension, unspecified, I25.10Atherosclerotic heart disease of qawalangin coronary artery without angina pectoris, I95.1Orthostatic hypotension, [...] [ 1.00 - 2.00 ] MV Decel Mbsc044.56 msec [ 104.00 - 258.00 ] Asc [...] * Troponin I high-sensitivity (07/01/2024 12:21 PM HOP SORTER) Trop I hs <4 <=17 ng/L Comment: Interpretive Data For further hscTnI resources including the diagnostic algorithm and an aid in interpretation, copy and paste this link: [email or web address].testcatalog.org/show/[email or web address]-[email or web address] Current Interpretive Data last revised 2019. Blood 07/01/2024 12:2 1 PM HOP SORTER 07/01/2024 12:26 PM HOP SORTER us Nneka Marin MD LAB BLOOD ORDERABLES Final Re sult [facility] One [facility] Department [place] [address] * eGFR (07/01/2024 12:21 PM HOP SORTER) eGFR 86 >=60 mL/min/1. 73 m2 Comment: [...] reviewed 2021. Blood 07/01/2024 12:2 1 PM HOP SORTER 07/01/2024 12:38 PM HOP SORTER us Nneka Marin MD LAB BLOOD ORDERABLES Final Re sult Performing Organization Address [facility] de Phone Number [facility] Department [place] [address] * Pro B-type natriuretic peptide (07/01/2024 12:21 PM HOP SORTER) NT-proBNP 137 <=300 pg/mL Comment: Interpretive Comments: [...] Date: 2017. Blood 07/01/2024 12:2 1 PM HOP SORTER 07/01/2024 12:26 PM HOP SORTER us Nneka Marin MD LAB BLOOD ORDERABLES Final Re sult Performing Organization Address [facility] de Phone Number [facility] Department [place] [address] * (ABNORMAL) CBC with auto differential (07/01/2024 12:21 PM HOP SORTER) [facility] WBC 5.4 3.8 - 9.9 K/cumm Hgb 11.9 11.9 - 15.5 g/dL [facility] Hct 34.6(L) 35.6 - 45.5 % [facility] Plt 170 150 - 400 K/cumm [facility] MPV 10.7 9.1 - 12.3 fL [facility] RBC 3.76(L) 3.90 - 5.20 M/cumm [facility] MCV 92.0 81.3 - 96.4 fL [facility] MCH 31.6 27.1 - 33.3 pg [facility] MCHC 34.4 32.3 - 35.7 g/dL [facility] RDW CV 12.4 11.1 - 14.9 % [facility] RDW SD 41.7 35.7 - 48.1 fL [facility] NRBC abs 0.00 0.00 - 0.01 K/cumm [facility] Blood 07/01/2024 12:2 1 PM HOP SORTER 07/01/2024 12:26 PM HOP SORTER us Nneka Marin MD LAB BLOOD ORDERABLES Final Re sult [facility] One [facility] Department [place] [address] * Lipoprotein a (LPa) (07/01/2024 12:21 PM HOP SORTER) [facility] Lipoprotein A <7 <75 nmol/L [facility] Comment: ADDITIONAL INFORMATION Please notice that Lp(a) values are reported in molar units (nmol/L). These units are recommended by professional society guidelines and expert opinion statements. Measured results and risk thresholds are higher than those generated using mass units (mg/dL). Cardiovascular risk increases starting at 75 nmol/L. Lp(a) >=125 nmol/L is considered a risk enhancing factor by the [place] [employer]. This test has been modified from the pre sales systems engineer's instructions. Its performance characteristics were determined by [facility] in a manner consistent with CLIA requirements. This test has not been cleared or approved by the U.S. Food and Drug Administration. Test Performed by: [facility] [place] [address] Reconciliation Manager: Turner Lora Ph.D.; CLIA# [id number] Blood 07/01/2024 12:2 1 PM HOP SORTER 07/01/2024 2:14 PM HOP SORTER us Nneka Marin MD LAB BLOOD ORDERABLES Final Re sult [facility] One [facility] Department [place] [address] [place] ref [facility] * (ABNORMAL) Manual Differential (07/01/2024 12:21 PM HOP SORTER) Differential Manual Cells Counted 115 [facility] Neutrophil abs 3.3 1.5 - 6.5 K/cumm [facility] Imm gran abs 0.0 0.0 - 0.1 K/cumm [facility] Lymphocyte abs 1.7 0.8 - 3.3 K/cumm [facility] Monocyte abs 0.2 0.2 - 0.8 K/cumm [facility] Eosinophil abs 0.2 0.0 - 0.5 K/cumm [facility] Neutrophil pct 60.9 % [facility] Comment: Interpretive Data Percent cell count reference ranges are not reported, since discordance with absolute values may lead to misinterpretation of CBC data. Current Interpretive Data was last revised on 2017. Lymphocyte pct 24.3 % [facility] Comment: Interpretive Data Percent cell count reference ranges are not reported, since discordance with absolute values may lead to misinterpretation of CBC data. Current Interpretive Data was last revised on 2017. Monocyte pct 3.5 % [facility] Comment: Interpretive Data Percent cell count reference ranges are not reported, since discordance with absolute values may lead to misinterpretation of CBC data. Current Interpretive Data was last revised on 2017. Eosinophil pct 4.3 % [facility] Comment: Interpretive Data Percent cell count reference ranges are not reported, since discordance with absolute values may lead to misinterpretation of CBC data. Current Interpretive Data was last revised on 2017. Variant lymph pct 7.0(H) 0.0 - 0.0 % [facility] Blood 07/01/2024 12:2 1 PM HOP SORTER 07/01/2024 12:44 PM HOP SORTER us Nneka Marin MD LAB BLOOD ORDERABLES Final Re sult Performing Organization Address [facility] Co de Phone Number [facility] [employer] [place] [address] * Folate (07/01/2024 12:21 PM HOP SORTER) Folic acid >20.0 >=5.0 ng/mL Blood 07/01/2024 12:2 1 PM HOP SORTER 07/01/2024 12:26 PM HOP SORTER us Nneka Marin MD LAB BLOOD ORDERABLES Final Re sult Performing Organization Address [facility] Co de Phone Number [facility] [place] [address] * Vitamin B12 (07/01/2024 12:21 PM HOP SORTER) Vitamin B12 788 230 - 1,250 pg/mL Blood 07/01/2024 12:2 1 PM HOP SORTER 07/01/2024 12:26 PM HOP SORTER us Nneka Marin MD LAB BLOOD ORDERABLES Final Re sult Performing Organization Address [facility] Co de Phone Number [facility] [employer] [place] [address] * Lipid panel (07/01/2024 12:21 PM HOP SORTER) Cholesterol 123 30 - 199 mg/dL Comment: [...] revised on 2017. Triglycerides 110 <=149 mg/dL [facility] Comment: Interpretive Data Ages < [...] revised on 2017. HDL 45 >=40 mg/dL [facility] Comment: Interpretive Data Ages < [...] 2017. LDL, calculated 58 <=129 mg/dL [facility] Comment: Interpretive Data Ages < [...] revised on 2023. Non-HDL Cholesterol 78 mg/dL [facility] Comment: Interpretive Data Ages < or = [...] last revised on 2017. Chol/HDL ratio 3 [facility] Blood 07/01/2024 12:2 1 PM HOP SORTER 07/01/2024 12:26 PM HOP SORTER us Nneka Marin MD LAB BLOOD ORDERABLES Final Re sult [facility] One [facility] Department [place] [address] * (ABNORMAL) Comprehensive metabolic panel (07/01/2024 12:21 PM HOP SORTER) Sodium 141 135 - 145 mmol/L Potassium, pl 3.8 3.3 - 4.9 mmol/L [facility] Chloride 104 97 - 110 mmol/L [facility] CO2 29 22 - 32 mmol/L [facility] Anion gap 8 2 - 15 mmol/L [facility] BUN 5(L) 6 - 25 mg/dL [facility] Creatinine 0.77 0.60 - 1.10 mg/dL [facility] Glucose 88 70 - 199 mg/dL [facility] Comment: Interpretive Data Fasting glucose >/= 126 [...] 2022. Calcium 10.0 8.5 - 10.3 mg/dL [facility] Bilirubin, total 0.5 0.1 - 1.2 mg/dL [facility] Protein, pl 6.8 6.5 - 8.5 g/dL [facility] Albumin 4.1 3.5 - 5.0 g/dL [facility] Alk phos 82 40 - 130 Units/L [facility] ALT 16 7 - 45 Units/L [facility] AST 18 10 - 45 Units/L [facility] Blood 07/01/2024 12:2 1 PM HOP SORTER 07/01/2024 12:26 PM HOP SORTER us Nneka Marin MD LAB BLOOD ORDERABLES Final [facility] One [facility] Department of Laboratories [place], [place] [phone] * ECG 12 lead (07/01/2024 9:04 AM HOP SORTER) us Nneka Marin MD ECG ORDERABLES Edited Result - Final from Last 3 Months Insurance MEDICARE [facility] MEDICARE [facility] [place] [address] Care Teams Methodologist Relationship Specialty Start Date End Date Godwin Garcia PA [address] [place], [place] [phone] PCP - General Physician Sales Agent Protective Service 07/01/24
--- OUTSIDE RECORDS SUMMARY | 2024-09-07 10:02 | XMS_ITS | Encounter Summary ---
Author Organization [facility] Address [facility] [place] [address] Care Team Providers Care Hob Mill Operator Name Role Phone Dru Caruso MD Primary Care Provider Taryn Silveira MD Unavailable Martha Dejesus MD Unavailable Yannick Victor MD Unavailable [phone] Encounter Details Date Type Department Care Team (Late st Contact Info) Description 11/21/2022 GC Aesthetics Message [facility] [place], [place] [address] Taryn Silveira MD [address] [place], [place] [address] Test results Social History Tobacco Use Types [...] on filedocumented in this encounter Care Teams Hob Mill Operator Relationship Specialty Start Date End Date Dru Caruso MD [address] [place] [phone] PCP - General FAMILY PRACTICE 12/03/17 Taryn Silveira MD [address] [place] [phone] [place] Roll Tender CARDIOVASCULAR DISEASE 12/03/17 02/08/23 Martha Dejesus MD [address] [place] [address] Consulting Physician CARDIOVASCULAR DISEASE 08/22/23 Yannick Victor MD [address] [place] [address] Consulting Physician INTERVENTIONAL CARDIOLOGY 12/05/23 documented as of this encounter
--- OUTSIDE RECORDS SUMMARY | 2024-09-07 10:02 | XMS_ITS ---
Author Organization Unknown Address [address] [place] [phone] Phone Care Team Providers Care Music Producer Name Role Phone MATT Marshall Attending Unavailable [...] Female Vital Signs Vital Sign Value Unit Boyd Value Boyd Unit Date/Time Recent/Initial? Code Code System Body Mass Index 26.09 kg/m2 07/16/2024 10:18 Most Recent 72651 -5 LOINC Body Mass Index 26.61 kg/m2 07/10/2024 12:39 Initial 65938 -5 LOINC Systolic Blood Pressure 130 mm[Hg] [...] O2 Saturation 100 % 2024 10:12 Initial 55800 -5 INC Pulse 84.0 /min 07/16/2024 10:12 Initial 8867- 4 INC Respiration 16 /min 07/17/19 10:12 Initial 9279- 1 INC Temperature 36.3 Lizzy 97.3 F 07/17/19 10:12 Initial 8310- 5 LOINC Weight 68.95 kg 152.00 lbs 07/16/2024 10:18 Most Recent 47519 -7 INC Weight 70.31 kg 155.00 lbs 07/10/2024 12:39 Initial 70214 -7 [facility] Medications Medication Start Date End Date Route Frequency Dose Code Code System Medication Instructions Home Meds Aspirin 81MG Oral Tablet, Enteric Coated 07/16/2024 Unknown ORAL ONCE A DAY 81 MILLIGRAMS 623021 RxNorm TAKE 81 MILLIGRAMS ORAL ONCE A DAY Ativan 1MG Oral Tablet 07/16/2024 Unknown ORAL NEEDED 0.5 MILLIGRAMS 264329 RxNorm TAKE 0.5 MILLIGRAMS ORAL NEEDED Boniva 150MG Oral Tablet 07/16/2024 Unknown ORAL MONTHLY 150 MILLIGRAMS 237498 RxNorm TAKE 150 MILLIGRAMS ORAL MONTHLY Meloxicam 15MG Oral Tablet 07/16/2024 Unknown ORAL NEEDED DAILY 15 MILLIGRAMS 875979 RxNorm TAKE 15 MILLIGRAMS ORAL NEEDED DAILY Omeprazole 20 MG Oral Tablet, Delayed Release 07/16/2024 Unknown ORAL ONCE A DAY 20 MG RxNorm TAKE 20 MG ORAL ONCE A DAY Ondansetron 4MG Oral Tablet, Disintegrating 07/16/2024 Unknown ORAL NEEDED 3 TIMES A DAY 4 MILLIGRAMS 242242 RxNorm TAKE 4 MILLIGRAMS ORAL NEEDED 3 TIMES A DAY Strattera 80MG Oral Capsule 07/16/2024 Unknown ORAL ONCE A DAY 80 MILLIGRAMS 581195 RxNorm TAKE 80 MILLIGRAMS ORAL ONCE A DAY buPROPion HCl 300MG Oral Tablet, Extended Release, 24 HR 07/16/2024 Unknown ORAL ONCE A DAY 300 MILLIGRAMS 767237 RxNorm TAKE 300 MILLIGRAMS ORAL ONCE A DAY traZODone hydrochloride 100MG Oral Tablet 07/16/2024 Unknown ORAL AT BEDTIME 100 MILLIGRAMS 961131 RxNorm TAKE 100 MILLIGRAMS ORAL AT BEDTIME [...] nal endoscopic procedures, endoscope introduce 07/16/2024 completed 74849 CPT Oophorectomy completed [id number] SNOMEDCT Surgery on facial bone completed [id number] SN OMEDCT Allergies and Adverse Reactions Allergy Substance Reaction Severity Start Date Concern Status Co de Code System CODEINE Active 2670 RxNorm HYDROCODONE Active 5489 RxNorm No Known Allergies Active [id number] SNO MED-CT Plan of Treatment Bone Density Dexa 02/14/2024 Colonoscopy 07/16/2024 Encounters Encounter Diagnosis Start Date Code Code Sys tem Encounter for screening for malignant neoplasm of colo n 07/16/2024 SNOMED-CT Personal Care Team Section Performer Name Performer Role Active Date Inactive BAO Cardoso PCP - Primary care physician 2024-07-16
--- OUTSIDE RECORDS SUMMARY | 2024-09-07 10:02 | XMS_ITS | Encounter Summary ---
Author Organization [facility] Address [facility] [place] [address] Care Team Providers Care Director Of Manufacturing Operations Name Role Phone Dru Caruso MD Primary Care Provider Taryn Silveira MD Unavailable Martha Dejesus MD Unavailable Yannick Victor MD Unavailable [phone] Encounter Details Date Type Department Care Team (Late st Contact Info) Description 05/02/2021 Abstract [facility] [place] [place] [address] [place] [address] Abstract, Doc Prevea Social History Tobacco Use [...] medication documented in this encounter Care Teams Director Of Manufacturing Operations Relationship Specialty Start Date End Date Dru Caruso MD [address] [place] [phone] PCP - General FAMILY PRACTICE 12/03/17 Taryn Silveira MD [address] [place] [phone] [place] Kettle Tender CARDIOVASCULAR DISEASE 12/03/17 02/08/23 Martha Dejesus MD [address] [place] [address] Consulting Physician CARDIOVASCULAR DISEASE 08/22/23 Yannick Victor MD [address] [place] [address] Consulting Physician INTERVENTIONAL CARDIOLOGY 12/05/23 documented as of this encounter
--- OUTSIDE RECORDS SUMMARY | 2024-09-07 10:02 | XMS_ITS | Encounter Summary ---
Author Organization [facility] Address [address] [place] [address] Care Team Providers Care Food Service Lead Name Role Phone Dru Caruso MD Primary Care Provider [phone] Taryn Silveira MD Unavailable Martha Dejesus MD Unavailable Yannick Victor MD Unavailable [phone] Encounter Details Date Type Department Care Team (Latest Contact Info) Description 11/25/2022 ADP Message Enc [facility] [place] [address] [place] [phone] Nita Peter MD Cardiac Catheterization Social History [...] on filedocumented in this encounter Care Teams Food Service Lead Relationship Specialty Start Date End Date Dru Caruso MD [address] [place] [phone] PCP - General FAMILY PRACTICE 12/03/17 Taryn Silveira MD [address] [place] [phone] D Lo Drilling Superintendent CARDIOVASCULAR DISEASE 12/03/17 02/08/23 Martha Dejesus MD [address] [place] [address] Consulting Physician CARDIOVASCULAR DISEASE 08/22/23 Yannick Victor MD [address] [place] [address] Consulting Physician INTERVENTIONAL CARDIOLOGY 12/05/23 documented as of this encounter
--- OUTSIDE RECORDS SUMMARY | 2024-09-07 10:02 | XMS_ITS | Encounter Summary ---
Author Organization [facility] Address [address] [place] [address] Care Team Providers Care Cartridge Assembling Machine Adjuster Name Role Phone Dru Caruso MD Primary Care Provider [phone] Taryn Silveira MD Unavailable Martha Dejesus MD Unavailable Yannick Victor MD Unavailable [phone] Encounter Details Date Type Department Care Team (Late st Contact Info) Description 12/04/2022 Hospital Orders Only [employer] Drafter Pre/Post [address] [place] [address] Samuel Dawson MD [address] [place] [address] Social History Tobacco Use Types [...] on filedocumented in this encounter Care Teams Cartridge Assembling Machine Adjuster Relationship Specialty Start Date End Date Dru Caruso MD [address] [place] [phone] PCP - General FAMILY PRACTICE 12/03/17 Taryn Silveira MD [address] [place] [phone] Sidell Executive Legal Secretary CARDIOVASCULAR DISEASE 12/03/17 02/08/23 Martha Dejesus MD [address] [place] [address] Consulting Physician CARDIOVASCULAR DISEASE 08/22/23 Yannick Victor MD [address] [place] [address] Consulting Physician INTERVENTIONAL CARDIOLOGY 12/05/23 documented as of this encounter
--- OUTSIDE RECORDS SUMMARY | 2024-09-07 10:03 | XMS_ITS | Clinical Summary ---
Author Organization [facility] Address [facility] [place] [address] Care Team Providers Care Plater Supervisor Name Role Phone Dru Caruso MD Primary Care Provider [phone] Yannick Victor MD Unavailable [phone] Allergies Active Allergy Reactions Criticality Noted Date [...] 12/17/2017 Sleep apnea Overview (01/11/2023): wears cpap Family History Medical History Relation Comments Heart Attack Brother 1 Stent Cardiac Brother 1 Heart Attack Father Open Heart Father Heart Attack Mother Open Heart Mother Stroke Mother Open Heart Sister 1 Relation Status Comments Brother 1 Alive CAD, UT and CABG Brother 2 Alive Brother 3 Alive Brother 4 Father CAD, UT Mother CAD, UT Sister 1 Alive CAD, UT and CABG Sister 2 Alive Sister 3 Alive Sister 4 Alive Sister 5 Alive Social History Tobacco Use Types Packs/Day Years Used Date Smoking Tobacco: Former Cigarettes Q uit: 2013 Smokeless Tobacco: Never Tobacco Cessation:Counseling Given: Not [...] 04/29, 09/23/2021, Additional history exists COVID-19 Vaccine (3 - season) 2023 05/19/2020, 04/20/2020 Dexa Scan [...] Procedure Name Priority Date/Time Associated Diagnosis Comments LIPID PANEL Routine 10/05/2022 12:17 PM CDT Mixed hyperlipidemia from Last 3 Months or Most Recently Relevant to Health Maintenance Results * LIPID PANEL (10/05/2022 12:17 PM CDT) [...] Most Recently Relevant to Health Maintenance Insurance [facility] Member Subscriber Plan / Payer (Ef fective 2022-Present) Name:Shadia Mays Relation to Subscriber:Self Name:Shadia Mays Payer ID:1 (NAIC) Type:Not on file Address: [address] MEDICARE [employer] Address: ATTN CLAIMS [address] [place] [address] Advance Directives Documents on File Type Date Recorded 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 Ballistic Technician Expl anation Advance Directives and Living Will 02/25/2018 3:17 PM TUSHAR MONTELONGO, AGENT; JIA ATKINSON, SUCCESSOR AGENT Advance Directives and Living Will 02/25/2018 3:17 PM [place] [place] DECLATATION * Full Code (Latest Code Status on File) Date Activated Date Inactivated Comments 12/10/2022 5:04 PM 12/10/2022 8:15 PM * Full Code Date Activated Date Inactivated Comments 01/10/2018 9:08 AM 01/10/2018 1:20 PM Care Teams Plater Supervisor Relationship Specialty Start Date End Date Dru Caruso MD [address] [place] [phone] PCP - General FAMILY PRACTICE 12/03/17 Yaninck Victor MD [address] [place] [phone] Consulting Physician INTERVENTIONAL CARDIOLOGY 12/05/23
--- OUTSIDE RECORDS SUMMARY | 2024-09-07 10:03 | XMS_ITS | Data Portability ---
Author Organization [facility], 800 [facility] Neurology ([place]) Address [address] [place] [address] Care Team Providers Care Vehicle Leasing And Rental Manager Name Role Phone XIOMARA SARGENT Primary Care Provider Assessment Encounter Date Assessment Date Assessment LastModified [...] % topical cream 2024 025 [email or web address] [id number], [address] [place], [address], 5 11:16:12 Patient TargetsNo targets recorded. Patient InstructionsNo instructions recorded. Reason for Referral None Reported. Problems Name Problem SNOMED Code Status Onset Date Resolution Date Notes Provider Name and Address Organization Details Recorded Time Rosacea 817721502 Active 025 Sandra Hawthorne [facility] 06/09/2024 10:03:54 Problem Notes None recorded. Medical Equipment None Reported. Allergies Allergen ID Allergen Name Allergen Category Reaction Reaction Severity Criticality Documentation Date Start Date Code Code System Note Provider Name and Address Organization Details Recorded Time 791418 codeine medicatio n Not available Not available Not available 05/27/20232007 2670 RxNorm Not Available [facility] 4 21:56:38 097871 acetamino phen / hydrocodo ne medicatio n Not available Not available Not available 05/27/20232007 69127 2 RxNorm Not Available [facility] 4 21:56:38 771134 isosorbid e dinitrate medicatio n Not available Not available Not available 05/27/20232019 6058 RxNorm Not Available [facility] 4 21:56:38 Medications Name Sig Start Date Stop Date [...] Full Code [email or web address] Information not available 06/02/2024 How Many Times Per Week Do You Exercise? 1-2 Times Per Week [email or web address] Information not available 06/02/2024 When Did You Quit Smoking? 2009 [email or web address] Information not available 06/02/2024 What Was The Date Of Your Most Recent Tobacco Screening? 06/09/2024 [email or web address] Information not available 06/02/2024 What Is Your Relationship Status? [email or web address] Information not available 06/02/2024 Sex: Female Functional Status Question Answer Note LastModified by Organizat ion Details LastModified Time How many times per week do you consume alcohol? Less than 1 time per week [email or web address] Information not available 06/02/2024 Do you use any illicit or recreational drugs? No [email or web address] Information not available 06/02/2024 What is your level of alcohol consumption? Occasional [email or web address] Information not available 06/02/2024 Are you currently employed? 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 Occasional [email or web address] [...] available 2024 20:03:38 Medical History Condition Response Diabetes N Anxiety Disorder N Bleeding Disorder N Attention-deficit Hyperactivity Disorder Y High Blood Pressure N Arthritis N Hyperlipidemia N Cancer N Thyroid Problems N Stroke N Asthma N COPD N Depression N Anemia N Seizures N Heart Disease N Fibromyalgia N Osteoporosis N Kidney Disease N Gynecological HistoryNo gynecological history recorded. Obstetrics History GPAL:G 0 P 0 0 0 0 Past Encounters Encounter ID Performer Location Encounter Start Date Encounter Closed Date Diagnosis/Indication Diagnosis SNOMED-CT Code Diagnosis ICD10 Code Diagnosis Note [id number] Diana Salmon MD [facility] 4th Derm ([place]) [address] [place] [address] 06/09/2024 09:16:56 06/09/2024 10:13:29 Rosacea 691626376 L71.9 {{Acne Ros acea* Carly sma Seborr [...] patient was asked to call the office. [id number] Diana Salmon MD [facility] 4th Derm ([place]) [address] [place] [address] 06/24/2024 09:59:14 06/24/2024 11:37:50 Procedure [id number] Z41.1 Treatment options were discussed. Chemical peels [...] None Recorded Advance Directives Directive Y: Payers Insurance Date Sequence Insurance Name Policy Number Policy Zavaleta Covered Member ID Zavaleta Member ID Guarantor Name 06/30/2024 2 [employer] Shadia Mays [id number] Shadia Mays 06/22/2024 1 AETNA [id number] Shadia Mays [id number] Shadia Mays 07/03/2024 1 [place] Shadia Mays [id number] Shadia Mays Notes Date Note Type Note [...] {{ no#}} Diana Salmon MD [address] [place] [address], [phone], [facility] 06/14/2024 23:50:38 OBGyn Episode No OBEpisode recorded.
--- OUTSIDE RECORDS SUMMARY | 2024-09-07 10:03 | XMS_ITS | Encounter Summary ---
Author Organization [facility] Address [address] [place] [address] Care Team Providers Care Fingernail Technician Name Role Phone Dru Caruso MD Primary Care Provider Yannick Victor MD Unavailable [phone] Encounter Details Date Type Department Care Team (Late st Contact Info) Description 02/01/2024 [employer] Message Enc [facility] eld [address] [place] [address] Yannick Victor MD [address] [place] [phone] Wellbutrin Social History Tobacco Use Types [...] on filedocumented in this encounter Care Teams Fingernail Technician Relationship Specialty Start Date End Date Dru Caruso MD [address] [place] [address] PCP - General FAMILY PRACTICE 12/03/17 Yannick Victor MD [address] [place] [phone] Consulting Physician INTERVENTIONAL CARDIOLOGY 12/05/23 documented as of this encounter
--- OUTSIDE RECORDS SUMMARY | 2024-09-07 10:03 | XMS_ITS ---
Author Organization Unknown Address [address] [place] [phone] Phone Care Team Providers Care Progressive Die Maker Name Role Phone MARTHA Lopez Attending Unavailable [...] Unknown ORAL ONCE A DAY 81 MILLIGRAMS 057957 RxNorm TAKE 81 MILLIGRAMS ORAL ONCE A DAY Ativan 1MG Oral Tablet 07/16/2024 Unknown ORAL NEEDED 0.5 MILLIGRAMS 625113 RxNorm TAKE 0.5 MILLIGRAMS ORAL NEEDED Boniva 150MG Oral Tablet 07/16/2024 Unknown ORAL MONTHLY 150 MILLIGRAMS 652504 RxNorm TAKE 150 MILLIGRAMS ORAL MONTHLY Meloxicam 15MG Oral Tablet 07/16/2024 Unknown ORAL NEEDED DAILY 15 MILLIGRAMS 428289 RxNorm TAKE 15 MILLIGRAMS ORAL NEEDED DAILY Omeprazole 20 MG Oral Tablet, Delayed Release 07/16/2024 Unknown ORAL ONCE A DAY 20 MG RxNorm TAKE 20 MG ORAL ONCE A DAY Ondansetron 4MG Oral Tablet, Disintegrating 07/16/2024 Unknown ORAL NEEDED 3 TIMES A DAY 4 MILLIGRAMS 786466 RxNorm TAKE 4 MILLIGRAMS ORAL NEEDED 3 TIMES A DAY Strattera 80MG Oral Capsule 07/16/2024 Unknown ORAL ONCE A DAY 80 MILLIGRAMS 340084 RxNorm TAKE 80 MILLIGRAMS ORAL ONCE A DAY buPROPion HCl 300MG Oral Tablet, Extended Release, 24 HR 07/16/2024 Unknown ORAL ONCE A DAY 300 MILLIGRAMS 920473 RxNorm TAKE 300 MILLIGRAMS ORAL ONCE A DAY traZODone hydrochloride 100MG Oral Tablet 07/16/2024 Unknown ORAL AT BEDTIME 100 MILLIGRAMS 454311 RxNorm TAKE 100 MILLIGRAMS ORAL AT BEDTIME [...] Active 5489 RxNorm No Known Allergies Active [id number] SNO MED-CT Plan of Treatment Bone Density Dexa 02/14/2024 Colonoscopy 07/16/2024 Encounters Encounter Diagnosis Start Date Code Code Sys tem Encounter for screening for malignant neoplasm of colo n 06/15/2024 SNOMED-CT Personal Care Team Section Performer Name Performer Role Active Date Inactive BAO Cardoso PCP - Primary care physician 2024-07-16
--- OUTSIDE RECORDS SUMMARY | 2024-09-07 10:03 | XMS_ITS | Encounter Summary ---
Author Organization [facility] Address [address] [place] [address] Care Team Providers Care Welfare Investigator Name Role Phone Dru Caruso MD Primary Care Provider Taryn Silveira MD Unavailable Martha Dejesus MD Unavailable Yannick Victor MD Unavailable [phone] Encounter Details Date Type Department Care Team (Late st Contact Info) Description 12/21/2022 Abstract [facility] [address] [place] [phone] Samuel Dawson MD [address] [place] [address] Social History Tobacco Use Types [...] on filedocumented in this encounter Care Teams Welfare Investigator Relationship Specialty Start Date End Date Dru Caruso MD [address] [place] [phone] PCP - General FAMILY PRACTICE 12/03/17 Taryn Silveira MD [address] [place] [phone] Richards Manager Chinese CARDIOVASCULAR DISEASE 12/03/17 02/08/23 Martha Dejesus MD [address] [place] [address] Consulting Physician CARDIOVASCULAR DISEASE 08/22/23 Yannick Victor MD [address] [place] [address] Consulting Physician INTERVENTIONAL CARDIOLOGY 12/05/23 documented as of this encounter
[2024-09-07 10:13] LABS: Basophils Absolute Auto 0.02 K/mm3 (0.00-0.10); Basophils Percent Auto 0.4 % (0.0-1.0); Eosinophils Absolute Auto 0.08 K/mm3 (0.02-0.50); Eosinophils Percent Auto 1.5 % (1.0-6.0); Hematocrit 33.9 % (35.0-42.0); Immature Granulocyte Absolute 0.02 K/mm3 (0.00-0.00); Immature Granulocyte Percent A 0.4 % (0.0-0.0); Lymphocytes Absolute Auto 1.59 K/mm3 (1.10-4.50); Lymphocytes Percent Auto 29.4 % (18.0-42.0); Mean Corpuscular HGB Conc 32.4 g/dL (32-36); Mean Corpuscular Hemoglobin 31.3 pg (27.0-31.0); Mean Corpuscular Volume 96.3 fL (78.0-102.0); Mean Platelet Volume 10.4 fl (9.2-11.8); Monocytes Percent Auto 9.2 % (2.0-11.0); Neutrophils Percent Auto 59.1 % (50.0-70.0); Platelet Count Result 208 K/mm3 (150-420); Red Blood Count 3.52 M/mm3 (4.20-5.40); Red Cell Distribution Width 12.7 % (11.6-14.4); White Blood Count 5.4 K/mm3 (4.8-10.8)
== END 2024-09-07 09:56 | disposition home or self-care (01) ==
LOC: CHSIMG 09:59
PROVIDERS: PCP Physician Assistant; Visit Provider Internal Medicine Cardiovascular Disease
DX: R79.89 Other specified abnormal findings of blood chemistry (principal); R92.8 Other abnormal and inconclusive findings on diagnostic imaging of breast
CPT/HCPCS: 36415; 76642; 77061; 77065; 85025; G0279

== ENCOUNTER 2024-09-11 10:48 | Outpatient (CLI) | payer MEDICARE, SELFPAY ==
--- OUTSIDE RECORDS SUMMARY | 2024-09-11 10:54 | XMS_ITS | Encounter Summary ---
Author Organization [facility] Address [facility] [place] [address] Care Team Providers Care Pickle Processor Name Role Phone Dru Caruso MD Primary Care Provider Taryn Silveira MD Unavailable Martha Dejesus MD Unavailable Yannick Victor MD Unavailable [phone] Encounter Details Date Type Department Care Team (Late st Contact Info) Description 11/21/2022 [employer] Message [facility] [place], [place] [address] Taryn Silveira MD [address] [place], [place] [address] Test results Social History Tobacco Use Types [...] on filedocumented in this encounter Care Teams Pickle Processor Relationship Specialty Start Date End Date Dru Caruso MD [address] [place] [phone] PCP - General FAMILY PRACTICE 12/03/17 Taryn Silveira MD [address] [place] [phone] Scuddy Director Geothermal Operations CARDIOVASCULAR DISEASE 12/03/17 02/08/23 Martha Dejesus MD [address] [place] [address] Consulting Physician CARDIOVASCULAR DISEASE 08/22/23 Yannick Victor MD [address] [place] [address] Consulting Physician INTERVENTIONAL CARDIOLOGY 12/05/23 documented as of this encounter
--- OUTSIDE RECORDS SUMMARY | 2024-09-11 10:54 | XMS_ITS | Encounter Summary ---
Author Organization [facility] Address [address] [place] [address] Phone Care Team Providers Care Wetland Scientist Name Role Phone Godwin Garcia Primary Care Provider Encounter Details Date Type Department Care Team (Late st Contact Info) Description 07/14/2024 Results Follow-Up [facility] Cardiology [address] [facility] Advanced Medicine 8th [place] [address] [place] [address] Mikael Lubin MD [address] 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
--- OUTSIDE RECORDS SUMMARY | 2024-09-11 10:54 | XMS_ITS | Encounter Summary ---
Author Organization [facility] Address [address] [place] [address] Care Team Providers Care Audit Machine Operator Name Role Phone Dru Caruso MD Primary Care Provider Taryn Silveira MD Unavailable Martha Dejesus MD Unavailable Yannick Victor MD Unavailable [phone] Encounter Details Date Type Department Care Team (Late st Contact Info) Description 12/04/2022 Hospital Orders Only [facility] Participation Specialist Pre/Post [address] [place] [address] Samuel Dawson MD [address] [place] [address] Social History Tobacco Use Types [...] on filedocumented in this encounter Care Teams Audit Machine Operator Relationship Specialty Start Date End Date rDu Caruso MD [address] [place] [phone] PCP - General FAMILY PRACTICE 12/03/17 Taryn Silveira MD [address] [place] [phone] [place] Warp Tension Tester CARDIOVASCULAR DISEASE 12/03/17 02/08/23 Martha Dejesus MD [address] [place] [address] Consulting Physician CARDIOVASCULAR DISEASE 08/22/23 Yannick Victor MD [address] [place] [address] Consulting Physician INTERVENTIONAL CARDIOLOGY 12/05/23 documented as of this encounter
--- OUTSIDE RECORDS SUMMARY | 2024-09-11 10:54 | XMS_ITS | Encounter Summary ---
Author Organization [facility] Address [address] [place] [address] Care Team Providers Care Back Shoe Cutter Name Role Phone Dru Caruso MD Primary Care Provider Taryn Silveira MD Unavailable Martha Dejesus MD Unavailable Yannick Victor MD Unavailable [phone] Encounter Details Date Type Department Care Team (Latest Contact Info) Description 11/25/2022 [employer] Message Enc [facility] [address] [place] [phone] Nita Peter MD Cardiac Catheterization Social History [...] on filedocumented in this encounter Care Teams Back Shoe Cutter Relationship Specialty Start Date End Date Dru Caruso MD [address] [place] [phone] PCP - General FAMILY PRACTICE 12/03/17 Taryn Silveira MD [address] [place] [phone] Dante Corporate Travel Counselor CARDIOVASCULAR DISEASE 12/03/17 02/08/23 Martha Dejesus MD [address] [place] [address] Consulting Physician CARDIOVASCULAR DISEASE 08/22/23 Yannick Victor MD [address] [place] [address] Consulting Physician INTERVENTIONAL CARDIOLOGY 12/05/23 documented as of this encounter
--- OUTSIDE RECORDS SUMMARY | 2024-09-11 10:54 | XMS_ITS | Encounter Summary ---
Author Organization [facility] Address [facility] [place] [address] Care Team Providers Care Metal Forger'S Assistant Name Role Phone Dru Caruso MD Primary Care Provider [phone] Taryn Silveira MD Unavailable Martha Dejesus MD Unavailable Yannick Victor MD Unavailable [phone] Encounter Details Date Type Department Care Team (Late st Contact Info) Description 05/02/2021 Abstract [facility] [place] [address] [place] [address] Abstract, Doc Prevea Social History Tobacco Use [...] medication documented in this encounter Care Teams Metal Forger'S Assistant Relationship Specialty Start Date End Date Dru Caruso MD [address] [place] [phone] PCP - General FAMILY PRACTICE 12/03/17 Taryn Silveira MD [address] [place] [phone] [place] Algologist CARDIOVASCULAR DISEASE 12/03/17 02/08/23 Martha Dejesus MD [address] [place] [address] Consulting Physician CARDIOVASCULAR DISEASE 08/22/23 Yannick Victor MD [address] [place] [address] Consulting Physician INTERVENTIONAL CARDIOLOGY 12/05/23 documented as of this encounter
--- OUTSIDE RECORDS SUMMARY | 2024-09-11 10:55 | XMS_ITS | Encounter Summary ---
Author Organization [facility] Address [address] [place] [address] Care Team Providers Care Poultry Farmer Meat Name Role Phone Dru Caruso MD Primary Care Provider Taryn Silveira MD Unavailable Martha Dejeuss MD Unavailable Yannick Victor MD Unavailable [phone] Encounter Details Date Type Department Care Team (Late st Contact Info) Description 12/21/2022 Abstract [facility] [address] [place] [phone] Samuel Dawson MD [address] [place] [address] Social History Tobacco Use Types [...] on filedocumented in this encounter Care Teams Poultry Farmer Meat Relationship Specialty Start Date End Date Dru Caruso MD [address] [place] [phone] PCP - General FAMILY PRACTICE 12/03/17 Taryn Silveira MD [address] [place] [phone] [place] Underwater Trapper CARDIOVASCULAR DISEASE 12/03/17 02/08/23 Martha Dejesus MD [address] [place] [address] Consulting Physician CARDIOVASCULAR DISEASE 08/22/23 Yannick Victor MD [address] [place] [address] Consulting Physician INTERVENTIONAL CARDIOLOGY 12/05/23 documented as of this encounter
--- OUTSIDE RECORDS SUMMARY | 2024-09-11 10:55 | XMS_ITS | Data Portability ---
Author Organization [facility], 800 [facility] Neu[facility] ([place]) Address [address] [place] [address] Care Team Providers Care Bookkeeper Name Role Phone XIOMARA SARGENT Primary Care [...] % topical cream 2024 025 [email or web address] [id number], [address] [place], [address], 5 11:16:12 Patient TargetsNo targets recorded. Patient InstructionsNo instructions recorded. Reason for Referral None Reported. Problems Name Problem SNOMED Code Status Onset Date Resolution Date Notes Provider Name and Address Organization Details Recorded Time Rosacea 178390161 Active 025 Sandra Hawthorne [facility] 06/09/2024 10:03:54 Problem Notes None recorded. Medical Equipment None Reported. Allergies Allergen ID Allergen Name Allergen Category Reaction Reaction Severity Criticality Documentation Date Start Date Code Code System Note Provider Name and Address Organization Details Recorded Time 460571 codeine medicatio n Not available Not available Not available 05/27/20232007 2670 RxNorm Not Available [facility] 4 21:56:38 459672 acetamino phen / hydrocodo ne medicatio n Not available Not available Not available 05/27/20232007 71767 2 RxNorm Not Available [facility] 4 21:56:38 905404 isosorbid e dinitrate medicatio n Not available Not available Not available 05/27/20232019 6058 RxNorm Not Available [facility] 4 21:56:38 Medications Name Sig Start Date [...] not available 06/02/2024 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 [id number] Diana Salmon MD [facility] 4th Derm ([place]) [address] [place] [address] 06/24/2024 09:59:14 06/24/2024 11:37:50 Procedure [id number] Z41.1 Treatment options were discussed. Chemical peels [...] ID Guarantor Name 06/30/2024 2 [employer] [place] [employer] Shadia Mays [id number] Shadia Mays 06/22/2024 1 [employer]ETNA [id number] Shadia Mays [id number] Shadia Mays 07/03/2024 1 [place] Shadia Mays [id number] Shadia Mays Notes Date Note Type [...] {{ no#}} Diana Salmon MD [address] [place] [address], [phone], [facility] 06/14/2024 23:50:38 OBGyn Episode No OBEpisode recorded.
--- OUTSIDE RECORDS SUMMARY | 2024-09-11 10:55 | XMS_ITS | Encounter Summary ---
Author Organization [facility] Address [address] [place] [address] Care Team Providers Care Swiss Machinist Name Role Phone Dru Caruso MD Primary Care Provider [phone] Yannick Victor MD Unavailable [phone] Encounter Details Date Type Department Care Team (Late st Contact Info) Description 02/01/2024 Astrid Message Enc [facility] eld [address] [place] [address] Yannick Victor MD [address] [place] [id number] [place] Social History Tobacco Use Types [...] on filedocumented in this encounter Care Teams Swiss Machinist Relationship Specialty Start Date End Date Dru Caruso MD [address] [place] [phone] PCP - General FAMILY PRACTICE 12/03/17 Yannick Victor MD [address] [place] [phone] Consulting Physician INTERVENTIONAL CARDIOLOGY 12/05/23 documented as of this encounter
--- OUTSIDE RECORDS SUMMARY | 2024-09-11 10:55 | XMS_ITS | Encounter Summary ---
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 Gender Identity Not on file Sexual Orientation Not on file documented as of this encounter Plan of Treatment Not on file documented as of this encounter Procedures Procedure Name Priority Date/Time Associated Diagnosis Comments SCAN - LABS 09/07/2024 documented in this encounter Results * SCAN - LABS (09/07/2024) us Provider Scanning Final Result documented in this encounter Visit Diagnoses Not on filedocumented in this encounter Care Teams Lead Care Manager Relationship Specialty Start Date End Date Godwin Garcia PA [address] [place] [phone] PCP - General Physician Attic Fans Mechanic 07/01/24 documented as of this encounter
--- OUTSIDE RECORDS SUMMARY | 2024-09-11 10:55 | XMS_ITS | Clinical Summary ---
Author Organization [facility] [address] Address [address] [place] [id number] Care Team Providers Care Turner Splitter Machine Operator Name Role Phone Godwin Garcia Primary Care [...] Encounters Date Type Department Care Team Description 09/07/[address] [facility] CARDIOLOGY Scanning, Provider 08/25/2024 Orders Only [facility] Cardiology [address] [place] [address] 8th [place] [address] [place] [address] Nneka Marin MD Abnormal CBC (Primary Dx) 08/10/2024 10:00 AM CDT Procedure visit [facility] Neurological Testing [address] [place] [address] 6th [place] [address] [place] [address] SOB (shortness of breath); Coronary artery calcification; Orthostatic hypotension; Dyslipidemia 07/14/2024 Results Follow-Up [facility] Cardiology [address] [place] [address] 8th [place] [address] [place] [address] Nneka Marin MD 07/13/2024 1:34 PM CDT - 07/13/2024 11:59 PM CDT Hospital Encounter [facility] Cardiac Diagnostic Lab [address] [place] [address] SOB (shortness of breath); Hypotension, unspecified hypotension type; Coronary artery disease involving samish coronary artery of samish heart, unspecified whether angina present; Orthostatic syncope; Dyslipidemia Discharge Disposition: Discharge to home or self care 07/10/2024 Telephone [facility] Cardiology [address] [place] [address] 8th [place] [address] [place] [address] Nneka Marin MD 07/01/2024 12:10 PM BOBBIN PRESSER Lab [facility] Advanced Medicine (CAM) [address] [place] [address] SOB (shortness of breath); Coronary artery disease involving samish coronary artery of samish heart, unspecified whether angina present; Dyslipidemia; Family history of premature CAD; Hypotension, unspecified hypotension type; Orthostatic syncope 07/01/2024 9:00 AM BOBBIN PRESSER Office Visit [facility] Cardiology [address] [place] [address] 8th [place] [address] [place] [address] Nneka Marin MD Orthostatic hypotension (Primary Dx); SOB (shortness of breath); Coronary artery calcification; Dyslipidemia; Family history of premature CAD 07/01/2024 Orders Only [facility] Cardiology [address] [place] [address] [place] [address] Nneka Marin MD Orthostatic syncope (Primary Dx) 07/01/2024 Results Follow-Up [facility] Cardiology [address] [place] [address] [place] [address] [place] [address] Nneka Marin MD 07/01/2024 Orders Only [facility] Cardiology [address] [place] [address] [place] [address] [place] [address] Nneka Marin MD from Last 3 Months [...] on file Legal Sex Female 12:39 PM BOBBIN PRESSER Gender Identity Not on file Sexual Orientation Not on file Obstetrics History Last Filed Vital Signs Vital Sign Reading Time Taken Comments Blood Pressure 120/75 07/13/2024 3:09 PM CDT Pulse 103 07/13/2024 3:09 PM CDT Temperature 37.1 C (98.8 F) 09/14/2023 10:15 AM CDT Respiratory Rate 16 09/14/2023 10:15 AM CDT Oxygen Saturation 100% 07/01/2024 9:05 AM BOBBIN PRESSER Inhaled Oxygen Concentration - - Weight 70.3 [...] Associated Diagnosis Comments SCAN - LABS 09/07/2024 STRESS ECHO PHARMACOLOGIC W DOPPLER/CF W CONTRAST Routine 07/13/2024 3:09 PM CDT SOB (shortness of breath) Hypotension, unspecified hypotension type Coronary artery disease involving samish coronary artery of samish heart, unspecified whether angina present Orthostatic syncope Dyslipidemia EGFR Routine 07/01/2024 12:21 PM BOBBIN PRESSER SOB (shortness of breath) Hypotension, unspecified hypotension type Coronary artery disease involving samish coronary artery of samish heart, unspecified whether angina present Orthostatic syncope Dyslipidemia MANUAL DIFFERENTIAL Routine 07/01/2024 1 2:21 PM BOBBIN PRESSER SOB (shortness of breath) Hypotension, unspecified hypotension type Coronary artery disease involving samish coronary artery of samish heart, unspecified whether angina present Orthostatic syncope Dyslipidemia CBC WITH AUTO DIFFERENTIAL Routine 07/01/2024 12:21 PM BOBBIN PRESSER SOB (shortness of breath) Hypotension, unspecified hypotension type Coronary artery disease involving samish coronary artery of samish heart, unspecified whether angina present Orthostatic syncope Dyslipidemia COMPREHENSIVE METABOLIC PANEL Routine 07/01/2024 12:21 PM BOBBIN PRESSER SOB (shortness of breath) Hypotension, unspecified hypotension type Coronary artery disease involving samish coronary artery of samish heart, unspecified whether angina present Orthostatic syncope Dyslipidemia LIPID PANEL Routine 07/01/2024 12:21 PM BOBBIN PRESSER SOB (shortness of breath) Hypotension, unspecified hypotension type Coronary artery disease involving samish coronary artery of samish heart, unspecified whether angina present Orthostatic syncope Dyslipidemia TROPONIN I HIGH-SENSITIVITY Routine 07/01/2024 12:21 PM BOBBIN PRESSER SOB (shortness of breath) Hypotension, unspecified hypotension type Coronary artery disease involving samish coronary artery of samish heart, unspecified whether angina present Orthostatic syncope Dyslipidemia PRO B-TYPE NATRIURETIC PEPTIDE Routine 07/01/2024 12:21 PM BOBBIN PRESSER SOB (shortness of breath) Hypotension, unspecified hypotension type Coronary artery disease involving samish coronary artery of samish heart, unspecified whether angina present Orthostatic syncope Dyslipidemia VITAMIN B12 Routine 07/01/2024 12:21 PM BOBBIN PRESSER SOB (shortness of breath) Hypotension, unspecified hypotension type Coronary artery disease involving samish coronary artery of samish heart, unspecified whether angina present Orthostatic syncope Dyslipidemia FOLATE Routine 07/01/2024 12:21 PM BOBBIN PRESSER SOB (shortness of breath) Hypotension, unspecified hypotension type Coronary artery disease involving samish coronary artery of samish heart, unspecified whether angina present Orthostatic syncope Dyslipidemia LIPOPROTEIN A (LPA) Routine 07/01/2024 1 2:21 PM BOBBIN PRESSER SOB (shortness of breath) Coronary artery disease involving samish coronary artery of samish heart, unspecified whether angina present Dyslipidemia Family history of premature CAD ECG 12-LEAD Routine 07/01/2024 9:04 AM BOBBIN PRESSER SOB (shortness of breath) Coronary artery calcification from Last 3 Months Results * SCAN - LABS (09/07/2024) us Provider Scanning Final Result * STRESS ECHO PHARMACOLOGIC W DOPPLER/CF W CONTRAST (07/13/2024 3:09 PM CDT) Anatomical Region Laterality Modality Ultrasound 07/13/2024 1:45 PM CDT Narrative 07/13/2024 4:55 PM CDT [facility] [place] [address] Pharmacologic Stress Transthoracic Echocardiographic Report Patient Name: SHADIA PLASCENCIA J : 1960 (64y 1m) Gender: F Study Date: 07/13/2024 01:45:00 PM Ht(Inch): 64 Wt(Lb): 155.01 BSA: 1.78 Die Repair Machinist: Sandra Johnson [facility] Location: [facility] Order Provider: NNEKA MARIN BMI: 26.6 Ref [...] Hypotension, unspecified, I25.10 Atherosclerotic heart disease of samish coronary artery without angina pectoris, I95.1 Orthostatic [...] Procedure Note Bladimir Hall MD - 07/13/2024 [facility] [place] [address] Pharmacologic Stress Transthoracic Echocardiographic Report Patient Name: SHADIA PLASCENCIA J : 1960 (64y 1m) Gender: F Study Date: 07/13/2024 01:45:00 PM Ht(Inch): 64 Wt(Lb): 155.01 BSA: 1.78 Die Repair Machinist: Sandra Johnson [facility] Location: [facility] Order Provider:NNEKA MARIN BMI: 26.6 Ref Provider: [...] I95.9 Hypotension, unspecified, I25.10Atherosclerotic heart disease of samish coronary artery without angina pectoris, I95.1Orthostatic hypotension, [...] [ 1.00 - 2.00 ] MV Decel [id number] msec [ 104.00 - 258.00 ] Asc [...] * Troponin I high-sensitivity (07/01/2024 12:21 PM BOBBIN PRESSER) Trop I hs <4 <=17 ng/L Comment: Interpretive Data For further hscTnI resources including the diagnostic algorithm and an aid in interpretation, copy and paste this link: [email or web address]://bjhlab.testcatalog.org/show/[email or web address] Current Interpretive Data last revised 2019. Blood 07/01/2024 12:2 1 PM BOBBIN PRESSER 07/01/2024 12:26 PM BOBBIN PRESSER us Nneka Marin MD LAB BLOOD ORDERABLES Final Re sult [facility] Department [place] [address] * eGFR (07/01/2024 12:21 PM BOBBIN PRESSER) eGFR 86 >=60 mL/min/1. 73 m2 Comment: [...] reviewed 2021. Blood 07/01/2024 12:2 1 PM BOBBIN PRESSER 07/01/2024 12:38 PM BOBBIN PRESSER us Nneka Marin MD LAB BLOOD ORDERABLES Final Re sult [facility] Department [place] [address] * Pro B-type natriuretic peptide (07/01/2024 12:21 PM BOBBIN PRESSER) NT-proBNP 137 <=300 pg/mL Comment: Interpretive Comments: [...] et.al. Eur Heart J. 2006:27:330-337. 2. Radha ORTEGA, Lore CHRISTOPHER. J. AM Luiz Cardiol: Cardiovasc Imag. 2009;2: 216- 225. Interpretive Data Last Revised Date: 2017. Blood 07/01/2024 12:2 1 PM BOBBIN PRESSER 07/01/2024 12:26 PM BOBBIN PRESSER Nneka Marin MD LAB BLOOD ORDERABLES Final Re sult Performing Organization Address [facility] Co de Phone Number [facility] Department [place] [address] * (ABNORMAL) CBC with auto differential (07/01/2024 12:21 PM BOBBIN PRESSER) [facility] WBC 5.4 3.8 - 9.9 K/cumm Hgb 11.9 11.9 - 15.5 g/dL [facility] Hct 34.6(L) 35.6 - 45.5 % [facility] Plt 170 150 - 400 K/cumm [facility] MPV 10.7 9.1 - 12.3 fL [facility] RBC 3.76(L) 3.90 - 5.20 M/cumm [facility] MCV 92.0 81.3 - 96.4 fL [facility] MCH 31.6 27.1 - 33.3 pg [facility] MCHC 34.4 32.3 - 35.7 g/dL [facility] RDW CV 12.4 11.1 - 14.9 % [facility] RDW SD 41.7 35.7 - 48.1 fL [facility] NRBC abs 0.00 0.00 - 0.01 K/cumm [facility] Blood 07/01/2024 12:2 1 PM BOBBIN PRESSER 07/01/2024 12:26 PM BOBBIN PRESSER Nneka Marin MD LAB BLOOD ORDERABLES Final Re sult Performing Organization Address [facility]/ZIP Co de Phone Number [facility] [place] [address] * Lipoprotein a (LPa) (07/01/2024 12:21 PM BOBBIN PRESSER) Pathologist [facility] Lipoprotein A <7 <75 nmol/L [facility] Lab Comment: ADDITIONAL INFORMATION Please notice that Lp(a) values are reported in molar units (nmol/L). These units are recommended by professional society guidelines and expert opinion statements. Measured results and risk thresholds are higher than those generated using mass units (mg/dL). Cardiovascular risk increases starting at 75 nmol/L. Lp(a) >=125 nmol/L is considered a risk enhancing factor by the [place] [employer]. This test has been modified from the director decision support's instructions. Its performance characteristics were determined by [facility] in a manner consistent with CLIA requirements. This test has not been cleared or approved by the U.S. Food and Drug Administration. Test Performed by: [place] [address] Carpet Winder: Turner Lora Ph.D.; CLIA# [id number] Blood 07/01/2024 12:2 1 PM BOBBIN PRESSER 07/01/2024 2:14 PM BOBBIN PRESSER us Nneka Marin MD LAB BLOOD ORDERABLES Final Re sult [facility] Department [place] [address] [facility] ref Lab * (ABNORMAL) Manual Differential (07/01/2024 12:21 PM BOBBIN PRESSER) Differential Manual Cells Counted 115 [facility] Neutrophil abs 3.3 1.5 - 6.5 K/cumm [facility] Imm gran abs 0.0 0.0 - 0.1 K/cumm [facility] Lymphocyte abs 1.7 0.8 - 3.3 K/cumm [facility] Monocyte abs 0.2 0.2 - 0.8 K/cumm [facility] Eosinophil abs 0.2 0.0 - 0.5 K/cumm [facility] Neutrophil pct 60.9 % [facility] Comment: Interpretive Data Percent cell count reference ranges are not reported, since discordance with absolute values may lead to misinterpretation of CBC data. Current Interpretive Data was last revised on 2017. Lymphocyte pct 24.3 % [facility] Comment: Interpretive Data Percent cell count reference ranges are not reported, since discordance with absolute values may lead to misinterpretation of CBC data. Current Interpretive Data was last revised on 2017. Monocyte pct 3.5 % [facility] Comment: Interpretive Data Percent cell count reference ranges are not reported, since discordance with absolute values may lead to misinterpretation of CBC data. Current Interpretive Data was last revised on 2017. Eosinophil pct 4.3 % [facility] Comment: Interpretive Data Percent cell count reference ranges are not reported, since discordance with absolute values may lead to misinterpretation of CBC data. Current Interpretive Data was last revised on 2017. Variant lymph pct 7.0(H) 0.0 - 0.0 % [facility] Blood 07/01/2024 12:2 1 PM BOBBIN PRESSER 07/01/2024 12:44 PM BOBBIN PRESSER us Nneka Marin MD LAB BLOOD ORDERABLES Final Re sult [facility] Department [place] [address] * Folate (07/01/2024 12:21 PM BOBBIN PRESSER) Folic acid >20.0 >=5.0 ng/mL Blood 07/01/2024 12:2 1 PM BOBBIN PRESSER 07/01/2024 12:26 PM BOBBIN PRESSER Narrative [id number]|2024-09-11 10:55:00|2024-09-11 10:55:00|XMS_ITS|BKG DAEMON|External Medical Summaries|[id number]|" Referral Summary Created on: September 11, 2024 Shadia Plascencia : 1960 Sex: Female Author Organization [facility] [address] [place] [address] Care Team Providers Care Turner Splitter Machine Operator Name Role Phone Godwin Garcia Primary Care Provider Encounters Date Type Department Care Team Description 09/07/[address] [facility] CARDIOLOGY Scanning, Provider 08/25/2024 Orders Only [facility] Cardiology [facility] 8th [place] [address] [place] [address] Nneka Marin MD Abnormal CBC (Primary Dx) 08/10/2024 10:00 AM CDT Procedure visit [facility] Neurological Testing [address] [facility] 6th [place] [address] [place] [address] SOB (shortness of breath); Coronary artery calcification; Orthostatic hypotension; Dyslipidemia 07/14/2024 Results Follow-Up [facility] Cardiology [address] [place] [address] 8th [place] [address] [place] [address] Nneka Marin MD 07/13/2024 1:34 PM CDT - 07/13/2024 11:59 PM CDT Hospital Encounter [facility] Cardiac Diagnostic Lab [address] [place] [address] SOB (shortness of breath); Hypotension, unspecified hypotension type; Coronary artery disease involving samish coronary artery of samish heart, unspecified whether angina present; Orthostatic syncope; Dyslipidemia Discharge Disposition: Discharge to home or self care 07/10/2024 Telephone [facility] Cardiology [address] [place] [address] 8th [place] [address] [place] [address] Nneka Marin MD 07/01/2024 12:10 PM BOBBIN PRESSER Lab [facility] Medicine (CAM) [address] [place] [phone] SOB (shortness of breath); Coronary artery disease involving samish coronary artery of samish heart, unspecified whether angina present; Dyslipidemia; Family history of premature CAD; Hypotension, unspecified hypotension type; Orthostatic syncope 07/01/2024 Orders Only [facility] Cardiology [address] [place] [address] 8th [place] [address] [place] [address] Nneka Marin MD Orthostatic syncope (Primary Dx) 07/01/2024 Results Follow-Up [facility] Cardiology [address] [place] [address] 8th [place] [address] [place] [address] Nneka Marin MD 07/01/2024 Orders Only [facility] Cardiology [address] [place] [address] 8th [place] [address] [place] [address] Nneka Marin MD 07/01/2024 9:00 AM BOBBIN PRESSER Office Visit [facility] Cardiology [address] [place] [address] 8th [place] [address] [place] [address] Nneka Marin MD Orthostatic hypotension (Primary Dx); [...] on file Legal Sex Female 12:39 PM BOBBIN PRESSER Gender Identity Not on file Sexual Orientation Not on file Last Filed Vital Signs Vital Sign Reading Time Taken Comments Blood Pressure 120/75 07/13/2024 3:09 PM CDT Pulse 103 07/13/2024 3:09 PM CDT Temperature 37.1 C (98.8 F) 09/14/2023 10:15 AM CDT Respiratory Rate 16 09/14/2023 10:15 AM CDT Oxygen Saturation 100% 07/01/2024 9:05 AM BOBBIN PRESSER Inhaled Oxygen Concentration - - Weight 70.3 kg (155 lb) 07/13/2024 2:19 PM CDT Height 160 cm (5' 3 ) 07/13/2024 2:19 PM CDT Body Mass Index 27.46 07/13/2024 2:19 PM CDT Plan of Treatment Not on file Procedures Procedure Name Priority Date/Time Associated Diagnosis Comments SCAN - LABS 09/07/2024 STRESS ECHO PHARMACOLOGIC W DOPPLER/CF W CONTRAST Routine 07/13/2024 3:09 PM CDT SOB (shortness of breath) Hypotension, unspecified hypotension type Coronary artery disease involving samish coronary artery of samish heart, unspecified whether angina present Orthostatic syncope Dyslipidemia EGFR Routine 07/01/2024 12:21 PM BOBBIN PRESSER SOB (shortness of breath) Hypotension, unspecified hypotension type Coronary artery disease involving samish coronary artery of samish heart, unspecified whether angina present Orthostatic syncope Dyslipidemia MANUAL DIFFERENTIAL Routine 07/01/2024 1 2:21 PM BOBBIN PRESSER SOB (shortness of breath) Hypotension, unspecified hypotension type Coronary artery disease involving samish coronary artery of samish heart, unspecified whether angina present Orthostatic syncope Dyslipidemia CBC WITH AUTO DIFFERENTIAL Routine 07/01/2024 12:21 PM BOBBIN PRESSER SOB (shortness of breath) Hypotension, unspecified hypotension type Coronary artery disease involving samish coronary artery of samish heart, unspecified whether angina present Orthostatic syncope Dyslipidemia COMPREHENSIVE METABOLIC PANEL Routine 07/01/2024 12:21 PM BOBBIN PRESSER SOB (shortness of breath) Hypotension, unspecified hypotension type Coronary artery disease involving samish coronary artery of samish heart, unspecified whether angina present Orthostatic syncope Dyslipidemia LIPID PANEL Routine 07/01/2024 12:21 PM BOBBIN PRESSER SOB (shortness of breath) Hypotension, unspecified hypotension type Coronary artery disease involving samish coronary artery of samish heart, unspecified whether angina present Orthostatic syncope Dyslipidemia TROPONIN I HIGH-SENSITIVITY Routine 07/01/2024 12:21 PM BOBBIN PRESSER SOB (shortness of breath) Hypotension, unspecified hypotension type Coronary artery disease involving samish coronary artery of samish heart, unspecified whether angina present Orthostatic syncope Dyslipidemia PRO B-TYPE NATRIURETIC PEPTIDE Routine 07/01/2024 12:21 PM BOBBIN PRESSER SOB (shortness of breath) Hypotension, unspecified hypotension type Coronary artery disease involving samish coronary artery of samish heart, unspecified whether angina present Orthostatic syncope Dyslipidemia VITAMIN B12 Routine 07/01/2024 12:21 PM BOBBIN PRESSER SOB (shortness of breath) Hypotension, unspecified hypotension type Coronary artery disease involving samish coronary artery of samish heart, unspecified whether angina present Orthostatic syncope Dyslipidemia FOLATE Routine 07/01/2024 12:21 PM BOBBIN PRESSER SOB (shortness of breath) Hypotension, unspecified hypotension type Coronary artery disease involving samish coronary artery of samish heart, unspecified whether angina present Orthostatic syncope Dyslipidemia LIPOPROTEIN A (LPA) Routine 07/01/2024 1 2:21 PM BOBBIN PRESSER SOB (shortness of breath) Coronary artery disease involving samish coronary artery of samish heart, unspecified whether angina present Dyslipidemia Family history of premature CAD ECG 12-LEAD Routine 07/01/2024 9:04 AM BOBBIN PRESSER SOB (shortness of breath) Coronary artery calcification from Last 3 Months Results * SCAN - LABS (09/07/2024) us Provider Scanning Final Result * STRESS ECHO PHARMACOLOGIC W DOPPLER/CF W CONTRAST (07/13/2024 3:09 PM CDT) Anatomical Region Laterality Modality Ultrasound 07/13/2024 1:45 PM CDT Narrative 07/13/2024 4:55 PM CDT [facility] [place] [address] Pharmacologic Stress Transthoracic Echocardiographic Report Patient Name: SHADIA PLASCENCIA J : 1960 (64y 1m) Gender: F Study Date: 07/13/2024 01:45:00 PM Ht(Inch): 64 Wt(Lb): 155.01 BSA: 1.78 Die Repair Machinist: Sandra Johnson [facility] Location: [facility] Order Provider: NNEKA MARIN BMI: 26.6 Ref [...] Hypotension, unspecified, I25.10 Atherosclerotic heart disease of samish coronary artery without angina pectoris, I95.1 Orthostatic [...] Procedure Note Bladimir Hall MD - 07/13/2024 [facility] Card[place] [address] Pharmacologic Stress Transthoracic Echocardiographic Report Patient Name: SHADIA PLASCENCIA J : 1960 (64y 1m) Gender: F Study Date: 07/13/2024 01:45:00 PM Ht(Inch): 64 Wt(Lb): 155.01 BSA: 1.78 Die Repair Machinist: Sandra Johnson [facility] Location: [facility] Order Provider:NNEKA MARIN BMI: 26.6 Ref Provider: [...] I95.9 Hypotension, unspecified, I25.10Atherosclerotic heart disease of samish coronary artery without angina pectoris, I95.1Orthostatic hypotension, [...] [ 1.00 - 2.00 ] MV Decel [id number] msec [ 104.00 - 258.00 ] Asc [...] * Troponin I high-sensitivity (07/01/2024 12:21 PM BOBBIN PRESSER) Trop I hs <4 <=17 ng/L Comment: Interpretive Data For further hscTnI resources including the diagnostic algorithm and an aid in interpretation, copy and paste this link: [email or web address]://bjhlab.testcatalog.org/show/[email or web address] Current Interpretive Data last revised 2019. Blood 07/01/2024 12:2 1 PM BOBBIN PRESSER 07/01/2024 12:26 PM BOBBIN PRESSER us Nneka Marin MD LAB BLOOD ORDERABLES Final Re sult [facility] Department [place] [address] * eGFR (07/01/2024 12:21 PM BOBBIN PRESSER) eGFR 86 >=60 mL/min/1. 73 m2 Comment: [...] reviewed 2021. Blood 07/01/2024 12:2 1 PM BOBBIN PRESSER 07/01/2024 12:38 PM BOBBIN PRESSER us Nneka Marin MD LAB BLOOD ORDERABLES Final Re sult [facility] Department [place] [address] * Pro B-type natriuretic peptide (07/01/2024 12:21 PM BOBBIN PRESSER) NT-proBNP 137 <=300 pg/mL Comment: Interpretive Comments: [...] Date: 2017. Blood 07/01/2024 12:2 1 PM BOBBIN PRESSER 07/01/2024 12:26 PM BOBBIN PRESSER us Nneka Marin MD LAB BLOOD ORDERABLES Final Re sult [facility] Department [place] [address] * (ABNORMAL) CBC with auto differential (07/01/2024 12:21 PM BOBBIN PRESSER) WBC 5.4 3.8 - 9.9 K/cumm Hgb 11.9 11.9 - 15.5 g/dL [facility] Hct 34.6(L) 35.6 - 45.5 % [facility] Plt 170 150 - 400 K/cumm [facility] MPV 10.7 9.1 - 12.3 fL [facility] RBC 3.76(L) 3.90 - 5.20 M/cumm [facility] MCV 92.0 81.3 - 96.4 fL [facility] MCH 31.6 27.1 - 33.3 pg [facility] MCHC 34.4 32.3 - 35.7 g/dL [facility] RDW CV 12.4 11.1 - 14.9 % [facility] RDW SD 41.7 35.7 - 48.1 fL [facility] NRBC abs 0.00 0.00 - 0.01 K/cumm [facility] Blood 07/01/2024 12:2 1 PM BOBBIN PRESSER 07/01/2024 12:26 PM BOBBIN PRESSER us Nneka Marin MD LAB BLOOD ORDERABLES Final Re sult Performing Organization Address [facility] de Phone Number [facility] [place] [address] * Lipoprotein a (LPa) (07/01/2024 12:21 PM BOBBIN PRESSER) [facility] Lipoprotein A <7 <75 nmol/L Chau ref [...] considered a risk enhancing factor by the [employer]. This test has been modified from the director decision support's instructions. Its performance characteristics were determined by [facility] in a manner consistent with CLIA requirements. This test has not been cleared or approved by the U.S. Food and Drug Administration. Test Performed by: [place] [address] Carpet Winder: Turner Lora Ph.D.; CLIA# [id number] Blood 07/01/2024 12:2 1 PM BOBBIN PRESSER 07/01/2024 2:14 PM BOBBIN PRESSER us Nneka Marin MD LAB BLOOD ORDERABLES Final Re sult Performing Organization Address [facility] [place] [address] [facility] ref Lab * (ABNORMAL) Manual Differential (07/01/2024 12:21 PM BOBBIN PRESSER) Pathologist [facility] Differential Manual Cells Counted 115 [facility] Neutrophil abs 3.3 1.5 - 6.5 K/cumm [facility] Imm gran abs 0.0 0.0 - 0.1 K/cumm [facility] Lymphocyte abs 1.7 0.8 - 3.3 K/cumm [facility] Monocyte abs 0.2 0.2 - 0.8 K/cumm [facility] Eosinophil abs 0.2 0.0 - 0.5 K/cumm [facility] Neutrophil pct 60.9 % [facility] Comment: Interpretive Data Percent cell count reference ranges are not reported, since discordance with absolute values may lead to misinterpretation of CBC data. Current Interpretive Data was last revised on 2017. Lymphocyte pct 24.3 % [facility] Comment: Interpretive Data Percent cell count reference ranges are not reported, since discordance with absolute values may lead to misinterpretation of CBC data. Current Interpretive Data was last revised on 2017. Monocyte pct 3.5 % [facility] Comment: Interpretive Data Percent cell count reference ranges are not reported, since discordance with absolute values may lead to misinterpretation of CBC data. Current Interpretive Data was last revised on 2017. Eosinophil pct 4.3 % [facility] Comment: Interpretive Data Percent cell count reference ranges are not reported, since discordance with absolute values may lead to misinterpretation of CBC data. Current Interpretive Data was last revised on 2017. Variant lymph pct 7.0(H) 0.0 - 0.0 % [facility] Blood 07/01/2024 12:2 1 PM BOBBIN PRESSER 07/01/2024 12:44 PM BOBBIN PRESSER us Nneka Marin MD LAB BLOOD ORDERABLES Final Re sult [facility] Department [place] [address] * Folate (07/01/2024 12:21 PM BOBBIN PRESSER) [facility] Folic acid >20.0 >=5.0 ng/mL Blood 07/01/2024 12:2 1 PM BOBBIN PRESSER 07/01/2024 12:26 PM BOBBIN PRESSER us Nneka Marin MD LAB BLOOD ORDERABLES Final Re sult [facility] [place] [address] * Vitamin B12 (07/01/2024 12:21 PM BOBBIN PRESSER) Vitamin B12 788 230 - 1,250 pg/mL Blood 07/01/2024 12:2 1 PM BOBBIN PRESSER 07/01/2024 12:26 PM BOBBIN PRESSER us Nneka Marin MD LAB BLOOD ORDERABLES Final Re sult Performing Organization Address [facility]
--- OUTSIDE RECORDS SUMMARY | 2024-09-11 10:56 | XMS_ITS | Clinical Summary ---
Author Organization [facility] Address [facility] [place] [address] Care Team Providers Care Population Geneticist Name Role Phone Dru Caruso MD Primary Care Provider Yannick Victor MD Unavailable [phone] Allergies Active Allergy Reactions Criticality Noted Date [...] Relation Status Comments Brother 1 Alive [place] Brother 2 Alive Brother 3 Alive Brother 4 Father [place] Mother [place] Sister 1 [place]ive [place] Sister 2 Alive Sister 3 [...] Relevant to Health Maintenance Insurance [facility] Member Subscriber Plan / Payer (Ef fective 2022-Present) Name:Shadia Mays Relation to Subscriber:Self Name:Shadia Mays Payer ID:[id number] (NAIC) Type:Not on file Address: [address] MEDICARE Advance Directives Documents on File Type Date Recorded 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 Advance Directives and Living Will 02/25/2018 3:17 PM TUSHAR MONTELONGO, AGENT; JIA ATKINSON, SUCCESSOR AGENT Advance Directives and Living Will 02/25/2018 3:17 PM [place] LIVING WILL DECLATATION * Full Code (Latest Code Status on File) Date Activated Date Inactivated Comments 12/10/2022 5:04 PM 12/10/2022 8:15 PM * Full Code Date Activated Date Inactivated Comments 01/10/2018 9:08 AM 01/10/2018 1:20 PM Care Teams Population Geneticist Relationship Specialty Start Date End Date Dru Caruso MD [address] [place] [phone] PCP - General FAMILY PRACTICE 12/03/17 Yannick Victor MD [address] [place] [phone] Consulting Physician INTERVENTIONAL CARDIOLOGY 12/05/23
--- OUTSIDE RECORDS SUMMARY | 2024-09-11 10:56 | XMS_ITS ---
Author Organization Unknown Address [address] [place] [phone] Phone Care Team Providers Care Forensic Computer Examiner Name Role Phone MARTHA Lopez Attending Unavailable [...] Unknown ORAL ONCE A DAY 81 MILLIGRAMS [id number] RxNorm TAKE 81 MILLIGRAMS ORAL ONCE A DAY Ativan 1MG Oral Tablet 07/16/2024 Unknown ORAL NEEDED 0.5 MILLIGRAMS [id number] RxNorm TAKE 0.5 MILLIGRAMS ORAL NEEDED Boniva 150MG Oral Tablet 07/16/2024 Unknown ORAL MONTHLY 150 MILLIGRAMS [id number] RxNorm TAKE 150 MILLIGRAMS ORAL MONTHLY Meloxicam 15MG Oral Tablet 07/16/2024 Unknown ORAL NEEDED DAILY 15 MILLIGRAMS [id number] RxNorm TAKE 15 MILLIGRAMS ORAL NEEDED DAILY Omeprazole 20 MG Oral Tablet, Delayed Release 07/16/2024 Unknown ORAL ONCE A DAY 20 MG RxNorm TAKE 20 MG ORAL ONCE A DAY Ondansetron 4MG Oral Tablet, Disintegrating 07/16/2024 Unknown ORAL NEEDED 3 TIMES A DAY 4 MILLIGRAMS [id number] RxNorm TAKE 4 MILLIGRAMS ORAL NEEDED 3 TIMES A DAY Strattera 80MG Oral Capsule 07/16/2024 Unknown ORAL ONCE A DAY 80 MILLIGRAMS [id number] RxNorm TAKE 80 MILLIGRAMS ORAL ONCE A DAY buPROPion HCl 300MG Oral Tablet, Extended Release, 24 HR 07/16/2024 Unknown ORAL ONCE A DAY 300 MILLIGRAMS [id number] RxNorm TAKE 300 MILLIGRAMS ORAL ONCE A DAY traZODone hydrochloride 100MG Oral Tablet 07/16/2024 Unknown ORAL AT BEDTIME 100 MILLIGRAMS [id number] RxNorm TAKE 100 MILLIGRAMS ORAL AT BEDTIME [...] Active 5489 RxNorm No Known Allergies Active [id number] SNO MED-CT Plan of Treatment Bone Density Dexa 02/14/2024 Colonoscopy 07/16/2024 Encounters Encounter Diagnosis Start Date Code Code Sys tem Encounter for screening for malignant neoplasm of colo n 06/15/2024 SNOMED-CT Personal Care Team Section Performer Name Performer Role Active Date Inactive BAO Cardoso PCP - Primary care physician 2024-07-16
[2024-09-11 12:36] LABS: Alanine Aminotransferase 16 U/L (6-35); Albumin Level 3.9 g/dL (3.5-5.1); Alkaline Phosphatase 69 U/L (38-126); Anion Gap 5 mmol/L (4-12); Aspartate Amino Transferase 24 U/L (14-36); Bilirubin,Total 0.5 mg/dL (0.2-1.3); Blood Urea Nitrogen 10 mg/dL (7-17); Carbon Dioxide 27 mmol/L (22-30); Chloride 107 mmol/L (98-107); Estimated Glomerular Filt Rate > 60; Glucose 86 mg/dL (65-110); Iron 67 ug/dL (37-170); Osmolality Calculated 286 mOsm/kg (285-295); Potassium 4.2 mmol/L (3.4-5.0); Sodium 139 mmol/L (137-145); Total Protein 6.2 g/dL (6.3-8.2)
[2024-09-11 12:45] LABS: Percent Iron Saturation 25 % (20-50)
[2024-09-11 13:43] LABS: Folic Acid > 20.0 ng/mL (2.76->20)
== END 2024-09-11 10:49 | disposition home or self-care (01) ==
PROVIDERS: PCP Physician Assistant; Visit Provider Physician Assistant
DX: D64.9 Anemia, unspecified (principal); R53.83 Other fatigue
CPT/HCPCS: 36415; 80053; 82607; 82728; 82746; 83540; 83550